=== PATIENT | female | born 1950 | race Caucasian/White ===

== ENCOUNTER → 2016-03-21 | Outpatient (CLI) | payer BC ==
[2016-03-22 12:51] LABS: Thyroid Stim Immun Quant 1.58 IU/L (<0.10)
== END | disposition home or self-care (01) ==
LOC: LABWHC1 16:55
PROVIDERS: ATTEND Ophthalmology Ophthalmic Plastic and Reconstructive Surgery
DX: E55.9 Vitamin D deficiency, unspecified (principal); E05.00 Thyrotoxicosis with diffuse goiter without thyrotoxic crisis or storm
CPT/HCPCS: 36415; 82306; 84255; 84439; 84443; 84445; 84481; 86376

== ENCOUNTER 2016-07-20 18:14 | Emergency (ER) | payer BC ==
[2016-07-20 18:30] VITALS: BP 165/71; PULSE 95; RESP 16; TEMP 99.1
--- NOTE | 2016-07-20 18:59 | ED ---
ENT HPI - General Chief complaint: ENT Stated complaint: eye pain Time Seen by Provider: 07/20/16 18:57 Source: patient, RN notes reviewed Mode of arrival: ambulatory Limitations: no limitations - History of Present Illness Initial comments: This is a 65-year-old female presents emergency department complaining of right thigh pain and mild blurry vision. She states symptoms started yesterday. She has a hard time describing the pain but then states it is a dull pressure type sensation. Patient denies any other symptoms. There is no runny nose. No sore throat. No earache. No fever. Patient describes no visual field loss. 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 Patient getting mild clear discharge - Related Data Home Medications Medication Instructions Recorded Confirmed metFORMIN HCL [Glucophage] 500 mg PO BID 03/08/14 11/28/15 FLUoxetine HCL 20 mg PO HS 06/01/15 11/28/15 Methimazole 5 mg PO DAILY 06/01/15 11/28/15 amLODIPine BESYLATE/BENAZEPRIL 1 tab PO QAM 06/01/15 11/28/15 [amLODIPine BESYLATE/BENAZEPRIL 10-20 mg] Previous Rx's Medication Instructions Recorded Sulfamethox-Tmp 800-160Mg [Bactrim 1 each PO Q12HR #20 tab 11/28/15 Ds] HYDROcodone/APAP 5-325MG [Nickerson 5] 1 each PO Q4HR PRN #20 tab 07/20/16 Allergies Allergy/AdvReac Type Severity Reaction Status Date / Time Penicillins Allergy Anaphylaxis Verified 11/28/15 17:34 Review of Systems ROS Statement: Those systems with pertinent positive or pertinent negative responses have been documented in the HPI. ROS Other: All systems not noted in ROS Statement are negative. Past Medical History Past Medical History: Diabetes Mellitus, Hypertension History of Any Multi-Drug Resistant Organisms: None Reported Past Surgical History: Section, Cholecystectomy Past Psychological History: Anxiety, Depression Smoking Status: Current every day smoker Past Alcohol Use History: Rare Past Drug Use History: Prescription Drug Abuse General Exam - General Exam Comments Initial Comments: Well-developed, well-nourished 65-year-old female in mild distress. Patient has mild photophobia Limitations: no limitations General appearance: alert, in no apparent distress Head exam: Present: atraumatic, normocephalic, normal inspection Eye exam: Present: PERRL, EOMI, conjunctival injection (Right), other (Patient has injection of the right sclera and conjunctiva. There is no evidence of purulent discharge or foreign body.). Absent: scleral icterus, nystagmus, periorbital swelling, periorbital tenderness Pupils: Present: normal accommodation, other (Visual acuity testing reveals 20/ 40 in the right eye and 20/30 in the left eye. 20/30 both eyes. Tonometry reveals a pressure of 10 mmHg in the right eye and 15 mmHg in the left eye. Slit-lamp examination reveals punctate uptake over the right cornea. There is no evidence of dendrites, no hypopyon, no hyphema, no evidence of corneal ulceration or foreign body. Lid was everted, no foreign body) ENT exam: Present: normal exam, mucous membranes moist Neck exam: Present: normal inspection, full ROM. Absent: tenderness, meningismus, lymphadenopathy Respiratory exam: Present: normal lung sounds bilaterally. Absent: respiratory distress, wheezes, rales, rhonchi, stridor Cardiovascular Exam: Present: regular rate, normal rhythm, normal heart sounds. Absent: systolic murmur, diastolic murmur, rubs, gallop, clicks GI/Abdominal exam: Present: soft. Absent: distended, tenderness Back exam: Present: normal inspection Neurological exam: Present: alert, oriented X3, CN II-XII intact. Absent: motor sensory deficit Psychiatric exam: Present: normal affect, normal mood Skin exam: Present: warm, dry, intact, normal color. Absent: rash Course Vital Signs 07/20/16 18:28 Temperature 99.1 F Pulse Rate 95 Respiratory 16 Rate Blood Pressure 165/71 O2 Sat by Pulse 97 Oximetry - Reevaluation(s) Reevaluation #1: no change 07/20/16 20:12 Medical Decision Making - Medical Decision Making case discussed with Dr. Tony Alvarez. Tx plan, f/u Saturday. likely exposure keratitis. Disposition Clinical Impression: Exposure keratitis, Acute right eye pain Disposition: HOME SELF-CARE Condition: Good Instructions: Keratitis (ED) Additional Instructions: Follow up with Dr. Alvarez on Saturday. Artificial tears every hour. E-mycin ointment-- 1 cm to affect eye every 8 hours. Return to ED at once if symptoms worsen. OTC Colace for contipation. Prescriptions: HYDROcodone/APAP 5-325MG [Nickerson 5] 1 each PO Q4HR PRN #20 tab PRN Reason: Pain Referrals: Tony Alvarez MD [STAFF PHYSICIAN] - 1-2 days Time of Disposition: 20:16
[2016-07-20] MEDS ORDERED: PROPARACAINE 0.5% OPHTH DROPS 15 ML BTL BOTH EYES STA (19:04)
[2016-07-20] MEDS ORDERED: ERYTHROMYCIN 5 MG/GM OPHTH OINT 3.5 GM TUBE RIGHT EYE ONE (20:11)
== END 2016-07-20 20:32 | disposition home or self-care (01) ==
LOC: EC 18:14
DX: H16.9 Unspecified keratitis (principal); E11.9 Type 2 diabetes mellitus without complications; I10 Essential (primary) hypertension; F17.200 Nicotine dependence, unspecified, uncomplicated; Z79.84 Long term (current) use of oral hypoglycemic drugs; Z79.899 Other long term (current) drug therapy; Z88.0 Allergy status to penicillin
CPT/HCPCS: 99283

== ENCOUNTER → 2016-08-09 | Outpatient (CLI) | payer BC ==
[2016-08-09 18:50] LABS: ALT 23 U/L (9-52); AST 18 U/L (14-36); Alkaline Phosphatase 105 U/L (38-126); Bilirubin, Delta 0.3 mg/dL (0.0-0.2); GGT 16 U/L (12-43); Total Bilirubin 0.3 mg/dL (0.2-1.3); Total Protein 6.7 g/dL (6.3-8.2)
[2016-08-09 19:20] LABS: Hepatitis B Surface Ag Index 0.05
[2016-08-09 19:27] LABS: Hepatitis B Core IgM Index 0.03
[2016-08-09 19:38] LABS: Hepatitis C Virus IgG Ab Negative (Negative); Hepatitis C Virus IgG Index 0.01
== END ==
LOC: MMGSC 16:36
PROVIDERS: ATTEND Family Medicine
DX: R79.89 Other specified abnormal findings of blood chemistry (principal)
CPT/HCPCS: 36415; 80074; 80076; 82390; 82977; 83516

== ENCOUNTER → 2016-08-10 | Outpatient (CLI) | payer BC ==
[2016-08-10 18:42] LABS: Hemoglobin A1C 7.2 % (4.2-6.1)
== END | disposition home or self-care (01) ==
LOC: MMGSC 10:49
PROVIDERS: ATTEND Family Medicine
DX: E11.9 Type 2 diabetes mellitus without complications (principal)
CPT/HCPCS: 83036

== ENCOUNTER → 2016-08-10 | Outpatient (CLI) | payer BC ==
[2016-08-10 16:55] LABS: Basophils # (A) 0.1 k/uL (0-0.2); Basophils % (A) 1 %; CH 30.1; CHCM 32.9; Eosinophils # (A) 0.3 k/uL (0-0.7); Eosinophils % (A) 4 %; HCT 42.4 % (34.0-46.0); HDW 2.32; HGB 13.8 gm/dL (11.4-16.0); Luc % (Auto) 3; Lymphocytes # (A) 2.5 k/uL (1.0-4.8); Lymphocytes % (A) 32 %; MCH 29.8 pg (25.0-35.0); MCHC 32.5 g/dL (31.0-37.0); MCV 91.9 fL (80.0-100.0); Mean Platelet Volume 9.7; Monocytes # (A) 0.5 k/uL (0-1.0); Monocytes % (A) 6 %; Neutrophils # (A) 4.2 k/uL (1.3-7.7); Neutrophils % (A) 54 %; RBC 4.62 m/uL (3.80-5.40); RDW 12.4 % (11.5-15.5); WBC 7.8 k/uL (3.8-10.6); WBC (Perox) 7.78
[2016-08-10 16:57] LABS: ALT 32 U/L (9-52); AST 20 U/L (14-36)
== END | disposition home or self-care (01) ==
LOC: MMGSC 10:54
PROVIDERS: ATTEND Internal Medicine Endocrinology, Diabetes & Metabolism
DX: E05.00 Thyrotoxicosis with diffuse goiter without thyrotoxic crisis or storm (principal)
CPT/HCPCS: 36415; 84439; 84443; 84450; 84460; 84481; 85025

== ENCOUNTER → 2016-08-10 | Outpatient (CLI) | payer BC | END | disposition home or self-care (01) | LOC: MMGSC 10:52 | PROVIDERS: ATTEND Ophthalmology Ophthalmic Plastic and Reconstructive Surgery | DX: E55.9 Vitamin D deficiency, unspecified (principal) | CPT/HCPCS: 82306 ==

== ENCOUNTER → 2016-10-11 | Outpatient (CLI) | payer BC | END | disposition home or self-care (01) | LOC: MMGSC 16:23 | PROVIDERS: ATTEND Family Medicine | DX: N76.0 Acute vaginitis (principal); N94.10 Unspecified dyspareunia; Z86.39 Personal history of other endocrine, nutritional and metabolic disease | CPT/HCPCS: 36415; 84439; 84443; 84480; 87070; 87205 ==

== ENCOUNTER 2016-12-22 17:38 | Observation (INO) | payer BC ==
[2016-12-22] MEDS ORDERED: ASPIRIN 81 MG PO STA (17:51)
[2016-12-22] MEDS ORDERED: NITROGLYCERIN SL TABS 0.4 MG TAB SUBLINGUAL STA ×3 (17:51)
[2016-12-22] MEDS ORDERED: NITROGLYCERIN OINT 1 INCH/GM PACKET TOPICAL STA (17:51)
--- NOTE | 2016-12-22 17:54 | ED ---
General Adult HPI - General Stated complaint: chest pain Time Seen by Provider: 12/22/16 17:40 Source: RN notes reviewed - History of Present Illness Initial comments: This is a 66 year old female with past medical history significant for smoking diabetes high blood pressure high cost felt. Patient also states she has a strong family history for heart disease. Patient states about an hour and a half prior to arrival she started having chest pain radiated to her back per patient states she was sweaty and short of breath per patient states the pain eventually subsided with any began just prior to coming to the hospital. Currently patient is having no pain. Patient denies any previous cardiac history. Patient denies any palpitations. Patient denies any recent fever chills or cough per patient denies abdominal pain patient denies any vomiting diarrhea per patient denies headache patient denies numbness weakness. Patient denies any lightheadedness dizziness or near syncopal episode. His any calf pain or leg swelling - Related Data Home Medications Medication Instructions Recorded Confirmed FLUoxetine HCL 20 mg PO HS 06/01/15 12/22/16 Methimazole 5 mg PO DAILY 06/01/15 12/22/16 amLODIPine BESYLATE/BENAZEPRIL 1 tab PO QAM 06/01/15 12/22/16 [amLODIPine BESYLATE/BENAZEPRIL 10-20 mg] glyBURIDE/METFORMIN HCL 1 tab PO BID 12/22/16 12/22/16 [glyBURIDE/METFORMIN HCL 5-500 mg] Allergies Allergy/AdvReac Type Severity Reaction Status Date / Time Penicillins Allergy Anaphylaxis Verified 12/22/16 18:18 Review of Systems ROS Statement: Those systems with pertinent positive or pertinent negative responses have been documented in the HPI. ROS Other: All systems not noted in ROS Statement are negative. Past Medical History Past Medical History: Diabetes Mellitus, Hypertension History of Any Multi-Drug Resistant Organisms: None Reported Past Surgical History: Section, Cholecystectomy Past Psychological History: Anxiety, Depression Smoking Status: Current every day smoker Past Alcohol Use History: Rare Past Drug Use History: Prescription Drug Abuse General Exam - General Exam Comments Initial Comments: GENERAL: Patient is well-developed and well-nourished. Patient is nontoxic and well- hydrated and is in mild distress. ENT: Neck is soft and supple. No significant lymphadenopathy is noted. Oropharynx is clear. Moist mucous membranes. Neck has full range of motion without eliciting any pain. EYES: The sclera were anicteric and conjunctiva were pink and moist. Extraocular movements were intact and pupils were equal round and reactive to light. Eyelids were unremarkable. PULMONARY: Unlabored respirations. Good breath sounds bilaterally. No audible rales rhonchi or wheezing was noted. CARDIOVASCULAR: There is a regular rate and rhythm without any murmurs gallops or rubs. ABDOMEN: Soft and nontender with normal bowel sounds. No palpable organomegaly was noted. There is no palpable pulsatile mass. SKIN: Skin is clear with no lesions or rashes and otherwise unremarkable. NEUROLOGIC: Patient is alert and oriented x3. Cranial nerves II through XII are grossly intact. Motor and sensory are also intact. Normal speech, volume and content. Symmetrical smile. MUSCULOSKELETAL: Normal extremities with adequate strength and full range of motion. No lower extremity swelling or edema. No calf tenderness. LYMPHATICS: No significant lymphadenopathy is noted PSYCHIATRIC: Normal psychiatric evaluation. Normal interpersonal interactions appears functionally intact in deals appropriately with others. No signs of depression. No signs of anxiety. Course Vital Signs 12/22/16 12/22/16 12/22/16 17:50 17:55 18:03 Temperature 97.5 F L Pulse Rate 83 91 90 Respiratory 16 16 16 Rate Blood Pressure 173/118 211/78 148/70 O2 Sat by Pulse 100 99 99 Oximetry 12/22/16 12/22/16 18:47 19:16 Temperature 97.8 F Pulse Rate 79 68 Respiratory 18 18 Rate Blood Pressure 146/81 146/81 O2 Sat by Pulse 99 98 Oximetry Medical Decision Making - Medical Decision Making Patient started having pain when EKG was being done EKG shows sinus rhythm with occasional PVC at 77 bpm OR interval is 152 QRS is 94 QT interval 394 QTC is 445. Patient's EKG shows no ST segment elevation or depression or T wave abnormalities are noted. Chest x-ray shows no acute normalities. Patient had chest pain while in the emergency department and it was relieved completely when she was given nitroglycerin. The patient's symptoms risk factors were significant and I started the patient heparin because of bleeding to be unstable angina. She agreed to be admitted I spoke with Dr. Hong he agreed to admit the patient I wrote admitting orders I consult cardiology and I continued heparin Nitropaste and aspirin on the floor - Lab Data Result diagrams: 12/22/16 17:52 12/22/16 17:52 Lab Results 12/22/16 12/22/16 12/22/16 Range/Units 17:52 17:52 17:52 WBC 9.2 (3.8-10.6) k/uL RBC 4.87 (3.80-5.40) m/uL Hgb 14.5 (11.4-16.0) gm/dL Hct 43.3 (34.0-46.0) % MCV 88.9 (80.0-100.0) fL MCH 29.9 (25.0-35.0) pg MCHC 33.6 (31.0-37.0) g/dL RDW 11.9 (11.5-15.5) % Plt Count 318 (150-450) k/uL Neutrophils % 48 % Lymphocytes % 38 % Monocytes % 7 % Eosinophils % 4 % Basophils % 1 % Neutrophils # 4.4 (1.3-7.7) k/uL Lymphocytes # 3.5 (1.0-4.8) k/uL Monocytes # 0.6 (0-1.0) k/uL Eosinophils # 0.4 (0-0.7) k/uL Basophils # 0.1 (0-0.2) k/uL PT (9.0-12.0) sec INR (<1.2) APTT (22.0-30.0) sec Sodium 139 (137-145) mmol/L Potassium 4.3 (3.5-5.1) mmol/L Chloride 106 (98-107) mmol/L Carbon Dioxide 24 (22-30) mmol/L Anion Gap 9 mmol/L BUN 14 (7-17) mg/dL Creatinine 0.74 (0.52-1.04) mg/dL Est GFR (MDRD) Af Amer >60 (>60 ml/min/1.73 sqM) Est GFR (MDRD) Non-Af >60 (>60 ml/min/1.73 sqM) Glucose 128 H (74-99) mg/dL Calcium 10.0 (8.4-10.2) mg/dL Magnesium 2.0 (1.6-2.3) mg/dL Total Bilirubin 0.2 (0.2-1.3) mg/dL AST 30 (14-36) U/L ALT 27 (9-52) U/L Alkaline Phosphatase 123 (38-126) U/L Total Creatine Kinase 54 (30-135) U/L CK-MB (CK-2) 0.5 (0.0-2.4) ng/mL CK-MB (CK-2) Rel Index 0.9 Troponin I <0.012 (0.000-0.034) ng/mL Total Protein 7.6 (6.3-8.2) g/dL Albumin 4.5 (3.5-5.0) g/dL 12/22/16 Range/Units 17:52 WBC (3.8-10.6) k/uL RBC (3.80-5.40) m/uL Hgb (11.4-16.0) gm/dL Hct (34.0-46.0) % MCV (80.0-100.0) fL MCH (25.0-35.0) pg MCHC (31.0-37.0) g/dL RDW (11.5-15.5) % Plt Count (150-450) k/uL Neutrophils % % Lymphocytes % % Monocytes % % Eosinophils % % Basophils % % Neutrophils # (1.3-7.7) k/uL Lymphocytes # (1.0-4.8) k/uL Monocytes # (0-1.0) k/uL Eosinophils # (0-0.7) k/uL Basophils # (0-0.2) k/uL PT 9.9 (9.0-12.0) sec INR 1.0 (<1.2) APTT 23.2 (22.0-30.0) sec Sodium (137-145) mmol/L Potassium (3.5-5.1) mmol/L Chloride (98-107) mmol/L Carbon Dioxide (22-30) mmol/L Anion Gap mmol/L BUN (7-17) mg/dL Creatinine (0.52-1.04) mg/dL Est GFR (MDRD) Af Amer (>60 ml/min/1.73 sqM) Est GFR (MDRD) Non-Af (>60 ml/min/1.73 sqM) Glucose (74-99) mg/dL Calcium (8.4-10.2) mg/dL Magnesium (1.6-2.3) mg/dL Total Bilirubin (0.2-1.3) mg/dL AST (14-36) U/L ALT (9-52) U/L Alkaline Phosphatase (38-126) U/L Total Creatine Kinase (30-135) U/L CK-MB (CK-2) (0.0-2.4) ng/mL CK-MB (CK-2) Rel Index Troponin I (0.000-0.034) ng/mL Total Protein (6.3-8.2) g/dL Albumin (3.5-5.0) g/dL Critical Care Time Critical Care Time: Yes Total Critical Care Time: 35 Disposition Clinical Impression: Unstable angina pectoris Disposition: ADMITTED IP TO THIS HOSP Referrals: Megan Chong MD [Primary Care Provider] - 1-2 days Time of Disposition: 19:18
[2016-12-22 18:12] LABS: Basophils # (A) 0.1 k/uL (0-0.2); Basophils % (A) 1 %; CH 30.3; CHCM 34.2; Eosinophils # (A) 0.4 k/uL (0-0.7); Eosinophils % (A) 4 %; HCT 43.3 % (34.0-46.0); HDW 2.49; HGB 14.5 gm/dL (11.4-16.0); Luc # (Auto) 0.22; Luc % (Auto) 2; Lymphocytes # (A) 3.5 k/uL (1.0-4.8); Lymphocytes % (A) 38 %; MCH 29.9 pg (25.0-35.0); MCHC 33.6 g/dL (31.0-37.0); MCV 88.9 fL (80.0-100.0); Monocytes # (A) 0.6 k/uL (0-1.0); Monocytes % (A) 7 %; Neutrophils # (A) 4.4 k/uL (1.3-7.7); Neutrophils % (A) 48 %; RBC 4.87 m/uL (3.80-5.40); RDW 11.9 % (11.5-15.5); WBC 9.2 k/uL (3.8-10.6); WBC (Perox) 8.48
--- NOTE | 2016-12-22 18:20 | XR ---
EXAMINATION TYPE: XR chest 2V DATE OF EXAM: 12/22/2016 COMPARISON: 03/08/2014 HISTORY: Chest pain TECHNIQUE: Frontal and lateral views of the chest are obtained. FINDINGS: There is coarsening of interstitial markings and a relative poor inspiration. There is no definite heart failure. Heart size is normal. There is no pleural effusion. Thoracic aorta is atherom atous. There are chest leads. IMPRESSION: Increased pulmonary interstitial density compared to last exam the could relate to pneum onia or fibrosis. Inspiration is decreased. No heart failure.
[2016-12-22 18:23] LABS: Partial Thromboplastin Time 23.2 sec (22.0-30.0); Prothrombin Time 9.9 sec (9.0-12.0)
[2016-12-22 18:28] LABS: Creatine Kinase 54 U/L (30-135)
[2016-12-22 18:30] LABS: ALT 27 U/L (9-52); AST 30 U/L (14-36); Alkaline Phosphatase 123 U/L (38-126); Anion Gap 9 mmol/L; Blood Urea Nitrogen 14 mg/dL (7-17); Carbon Dioxide 24 mmol/L (22-30); Chloride 106 mmol/L (98-107); Glucose 128 mg/dL (74-99); Non-African American GFR(MDRD) >60 (>60 ml/min/1.73 sqM); Potassium 4.3 mmol/L (3.5-5.1); Sodium 139 mmol/L (137-145); Total Bilirubin 0.2 mg/dL (0.2-1.3); Total Protein 7.6 g/dL (6.3-8.2)
[2016-12-22 18:40] LABS: Creatine Kinase MB 0.5 ng/mL (0.0-2.4); Troponin I <0.012 ng/mL (0.000-0.034)
[2016-12-22] MEDS ORDERED: HEPARIN SODIUM,PORCINE 5,000 UNIT/ML 1 ML VIAL IV ONE (19:09)
[2016-12-22] MEDS ORDERED: HEPARIN SODIUM,PORCINE/D5W PMX 25,000 UNIT in DEXTROSE/WATER 1 500ML.BAG IV SCH (19:15)
[2016-12-22] MEDS ORDERED: NITROGLYCERIN SL TABS 0.4 MG TAB SUBLINGUAL PRN (19:20)
[2016-12-22 20:38] VITALS: BMI 31.8
[2016-12-22] MEDS ORDERED: amLODIPine 10 MG TAB PO SCH (21:15)
[2016-12-22] MEDS ORDERED: LISINOPRIL 20 MG TAB PO SCH (21:15)
[2016-12-22] MEDS ORDERED: FLUoxetine HCL 20 MG CAP PO SCH (21:15)
[2016-12-22] MEDS ORDERED: METOPROLOL TARTRATE 12.5 MG TAB PO SCH (21:45)
--- NOTE | 2016-12-22 23:40 | P.HPIM ---
History of Present Illness H&P Date: 12/22/16 Chief Complaint: left sided chest pain 66 year old female with history of active smoking, HTN , DM and HLD. Patient presented with sudden onset left parasternal chest pain, that started while sitting down and relaxed, she felt stabbing in nature pain over the left parasternal area, radiating to her lower thoracic back, 10/10 in severity , associated with dizziness and SOB, otherwise no tachycardia, no changes in vision or hearing, no nausea or vomiting no sweating. pain resolved on its own after 10 min, she tried a zantac pill thinking it could be indigestion. Patient denies having any similar attacks in the past and denies history of CAD, however does report having a stress test in the past years ago which was normal at that time. Pain recurred minutes later, same symptoms, for which she decided to go to the hospital , pain again subsided minutes later while in the car, then recurred at the ED, for which she was given a SL nitro. CUrrently patient reports that she is pain free, had a big dinner, and reports feeling completely normal. Patient was admitted for observation and possible stress test in the morning if continues to be chest pain free and with normal vital signs. Await further cardiology input Review of Systems Constitutional: Patient denies fever, denies chills, denies night sweating, denies significant weight changes Eyes: Patient denies visual changes, denies eye pain ENT: Patient denies ear pain, denies rhinorrhea, denies sore throat Cardiovascular: Patient denies denies exertional dyspnea, denies peripheral leg edema, denies orthopnea, denies paroxysmal nocturnal dyspnea Respiratory:Patient denies cough, denies wheezing, denies shortness of breath Gastrointestinal: Patient denies diarrhea, denies constipation, denies nausea , denies vomiting, denies abdominal pain Genitourinary: Patient denies dysuria, denies hematuria, denies changes in urinary habits, denies genital lesions Musculoskeletal: Patient denies muscle pain, denies joint pain Psychiatric: Patient denies changes in mood or memory, denies suicidal ideation, reports anxiety Endocrine: Patient denies heat intolerance, denies cold intolerance, denies excessive thirst, denies polyuria Neurological: Patient denies focal neurologic deficits, denies weakness, denies numbness, denies tingling Hem/Lymphatic: Patient denies bleeding tendency, denies bruising, denies swollen lymph glands Allergic/Immun: Patient denies recent allergic reactions Skin: Patient denies rashes, denies pruritis, denies ulcers Past Medical History Past Medical History: Diabetes Mellitus, Hyperlipidemia, Hypertension, Thyroid Disorder History of Any Multi-Drug Resistant Organisms: None Reported Past Surgical History: Section, Cholecystectomy Additional Past Surgical History / Comment(s): eye surgery 12/04, cholecystectomy Past Anesthesia/Blood Transfusion Reactions: No Reported Reaction Past Psychological History: Anxiety, Depression Smoking Status: Current every day smoker Past Alcohol Use History: Rare Past Drug Use History: Prescription Drug Abuse - Past Family History Father Family Medical History: Coronary Artery Disease (CAD) Medications and Allergies Home Medications and Allergies Comment(s): does not take oral hypoglycemic agents Home Medications Medication Instructions Recorded Confirmed Type FLUoxetine HCL 20 mg PO HS 06/01/15 12/22/16 History Methimazole 5 mg PO DAILY 06/01/15 12/22/16 History amLODIPine BESYLATE/BENAZEPRIL 1 tab PO QAM 06/01/15 12/22/16 History [amLODIPine BESYLATE/BENAZEPRIL 10-20 mg] glyBURIDE/METFORMIN HCL 1 tab PO BID 12/22/16 12/22/16 History [glyBURIDE/METFORMIN HCL 5-500 mg] Allergies Allergy/AdvReac Type Severity Reaction Status Date / Time Penicillins Allergy Anaphylaxis Verified 12/22/16 18:18 Physical Exam Vitals: Vital Signs Temp Pulse Pulse Resp BP BP Pulse Ox 12/22/16 19:33 97.4 F L 75 16 157/84 97 12/22/16 19:16 97.8 F 68 18 140/65 98 12/22/16 18:47 79 18 146/81 99 12/22/16 18:03 90 16 148/70 99 12/22/16 17:55 91 16 211/78 99 12/22/16 17:50 97.5 F L 83 16 173/118 100 Intake and Output 12/22/16 12/22/16 12/23/16 14:59 22:59 05:59 Other: Voiding Method Toilet Weight 81.647 kg Patient Weight 12/23/16 05:59 Weight 81.647 kg Constitutional: No acute distress, conversant, pleasant Eyes: Anicteric sclerae, moist conjunctiva, no lid-lag Pupils equal round reactive to light proptosis of right eye ENMT: NC/AT Oropharynx clear, no erythema, exudates Neck: Supple, FROM, no masses, or JVD No carotid bruits No thyromegaly Lungs: Clear to auscultation Clear to percussion Normal respiratory effort, no accessory muscle use Cardiovascular: Heart regular in rate and rhythm, No murmurs, gallops, or rubs No peripheral edema Abdominal: Soft Nontender, no guarding, rebound or rigidity Abdomen moving with respiration Normoactive bowel sounds No hepatomegaly, No splenomegaly No palpable mass No abdominal wall hernia noted Skin: Normal temperature, tone, texture, turgor No induration No subcutaneous nodules No rash, lesions No ulcers Extremities: No digital cyanosis No clubbing Pedal pulses intact and symmetrical Radial pulses intact and symmetrical No calf tenderness Psychiatric: Alert and oriented to person, place and time Appropriate affect fair judgment Neuro Muscles Strength 5/5 in all 4 extremities Sensation to light touch grossly present throughout Cranial nerves II-XII grossly intact No focal sensory deficits Lymphatics: no palpable cervical or supraclavicular , or inguinal lymph nodes Results CBC & Chem 7: 12/22/16 17:52 12/22/16 17:52 Labs: Abnormal Lab Results - Last 24 Hours (Table) 12/22/16 Range/Units 17:52 Glucose 128 H (74-99) mg/dL Thrombosis Risk Factor Assmnt - Choose All That Apply Each Risk Factor Represents 2 Points: Age 61-74 years Thrombosis Risk Factor Assessment Total Risk Factor Score: 2 Thrombosis Risk Factor Assessment Level: Low Risk Assessment and Plan Assessment: 66 year old female presented with chest pain with atypical features, however due to multiple risk factors and recurrent chest pain, patient admitted under observation for cardiac workup. (1) Chest pain Narrative/Plan: with atypical features, however patient with multiple risk factors cardiology consult for further recs, possible stress test if chest pain free and stable in the morning ASA heparin low dose metoprolol PRN SL nitro prn morphine oxygen as needed monitor vital signs check lipid profile Current Visit: Yes Status: Acute Code(s): R07.9 - CHEST PAIN, UNSPECIFIED SNOMED Code(s): 60349045 (2) Hypertension Narrative/Plan: controlled continue with home meds Amlodipine/ ACEi Current Visit: Yes Status: Chronic Code(s): I10 - ESSENTIAL (PRIMARY) HYPERTENSION SNOMED Code(s): 41312260 (3) Hyperlipidemia Narrative/Plan: not treated at home check lipid profile Current Visit: Yes Status: Chronic Code(s): E78.5 - HYPERLIPIDEMIA, UNSPECIFIED SNOMED Code(s): 24138305 (4) Diabetes mellitus Narrative/Plan: not on medication at home diet controlled and weight loss Insulin sliding scale check A1C% Current Visit: Yes Status: Chronic Code(s): E11.9 - TYPE 2 DIABETES MELLITUS WITHOUT COMPLICATIONS SNOMED Code(s): 43048994 (5) DVT prophylaxis Narrative/Plan: on heparin drip for possible ACS Current Visit: Yes Status: Acute Code(s): QZN5368 - SNOMED Code(s): 742663931 (6) Smoking Narrative/Plan: counseled to quit smoking (1.5 PPD) avoid nicotin patch at this time (due to possible underlying ACS) Current Visit: Yes Status: Chronic Code(s): F17.200 - NICOTINE DEPENDENCE, UNSPECIFIED, UNCOMPLICATED SNOMED Code(s): 28492423 (7) Graves disease Narrative/Plan: continue home dose of methimazole OP follow up Current Visit: No Status: Chronic Code(s): 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
[2016-12-23] MEDS: NITROGLYCERIN OINT 1 INCH/GM PACKET TOPICAL SCH ×2 (00:47→06:53)
[2016-12-23 01:32] LABS: Creatine Kinase 39 U/L (30-135)
[2016-12-23] MEDS ORDERED: HEPARIN SODIUM,PORCINE 5,000 UNIT/ML 1 ML VIAL IV PRN (01:41)
[2016-12-23 01:46] LABS: Creatine Kinase MB 0.4 ng/mL (0.0-2.4); Troponin I <0.012 ng/mL (0.000-0.034)
[2016-12-23 06:08] LABS: Glucose,Whole Blood 196 mg/dL (75-99)
--- NOTE | 2016-12-23 07:17 | P.CRDCN ---
History of Present Illness Consult date: 12/23/16 Chief complaint: Chest pain History of present illness: This is a pleasant 66-year-old female patient with a past medical history significant for diabetes, hypertension, and dyslipidemia with no history of coronary artery disease who presented to the hospital complaining of chest discomfort. She was at her daughter's house yesterday when she started experiencing chest discomfort, in the mid of the chest, as a sharp kind of discomfort with some radiation to the back with associated shortness of breath and without any nausea or vomiting or sweating. The pain lasted about 10 minutes then it was resolved completely. She had another episode of chest discomfort subsequently and at that time she decided to come to the emergency room. When she arrived the emergency room she was in pain and she was given nitroglycerin with improvement in her symptoms. The EKG and subsequent EKG showed normal sinus mechanism without any significant or ischemic changes. The cardiac enzymes were checked and came in to be unremarkable. The chest x-ray did not show any acute abnormalities. The patient does not has any history of coronary artery disease but she had multiple risk factors including diabetes, hypertension, and dyslipidemia. Past Medical History Past Medical History: Diabetes Mellitus, Hyperlipidemia, Hypertension, Thyroid Disorder History of Any Multi-Drug Resistant Organisms: None Reported Past Surgical History: Section, Cholecystectomy Additional Past Surgical History / Comment(s): eye surgery 12/04, cholecystectomy Past Anesthesia/Blood Transfusion Reactions: No Reported Reaction Past Psychological History: Anxiety, Depression Smoking Status: Current every day smoker Past Alcohol Use History: Rare Past Drug Use History: Prescription Drug Abuse - Past Family History Father Family Medical History: Coronary Artery Disease (CAD) Medications and Allergies Home Medications Medication Instructions Recorded Confirmed Type FLUoxetine HCL 20 mg PO HS 06/01/15 12/22/16 History Methimazole 5 mg PO DAILY 06/01/15 12/22/16 History amLODIPine BESYLATE/BENAZEPRIL 1 tab PO QAM 06/01/15 12/22/16 History [amLODIPine BESYLATE/BENAZEPRIL 10-20 mg] glyBURIDE/METFORMIN HCL 1 tab PO BID 12/22/16 12/22/16 History [glyBURIDE/METFORMIN HCL 5-500 mg] Allergies Allergy/AdvReac Type Severity Reaction Status Date / Time Penicillins Allergy Anaphylaxis Verified 12/22/16 18:18 Physical Exam Vitals: Vital Signs Temp Pulse Pulse Resp BP BP Pulse Ox 11/05/17 04:00 97.0 F L 65 16 124/70 97 12/23/16 00:00 97.2 F L 81 16 121/67 97 12/22/16 19:33 97.4 F L 75 16 157/84 97 12/22/16 19:16 97.8 F 68 18 140/65 98 12/22/16 18:47 79 18 146/81 99 12/22/16 18:03 90 16 148/70 99 12/22/16 17:55 91 16 211/78 99 12/22/16 17:50 97.5 F L 83 16 173/118 100 Intake and Output 12/22/16 12/23/16 12/23/16 23:59 06:59 14:59 Intake Total Balance Intake: Intake, IV Titration Amount Heparin Sodium,Porcine/ D5w Pmx 25,000 unit In Dextrose/Water 1 500ml. bag @ 12 UNITS/KG/HR 19. 59 mls/hr IV .Q24H [facility] Rx #:[id number] Other: Voiding Method # Voids Weight - Constitutional General appearance: no acute distress - Respiratory Respiratory: bilateral: CTA - Cardiovascular Rhythm: regular Heart sounds: normal: S1, S2 Results 12/22/16 17:52 12/22/16 17:52 Cardiac Enzymes 12/22/16 12/22/16 12/23/16 Range/Units 17:52 17:52 00:50 AST 30 (14-36) U/L CK-MB (CK-2) 0.5 0.4 (0.0-2.4) ng/mL Troponin I <0.012 <0.012 (0.000-0.034) ng/mL Coagulation 12/22/16 12/23/16 Range/Units 17:52 00:50 PT 9.9 (9.0-12.0) sec APTT 23.2 37.8 H (22.0-30.0) sec CBC 12/22/16 Range/Units 17:52 WBC 9.2 (3.8-10.6) k/uL RBC 4.87 (3.80-5.40) m/uL Hgb 14.5 (11.4-16.0) gm/dL Hct 43.3 (34.0-46.0) % Plt Count 318 (150-450) k/uL Comprehensive Metabolic Panel 12/22/16 Range/Units 17:52 Sodium 139 (137-145) mmol/L Potassium 4.3 (3.5-5.1) mmol/L Chloride 106 (98-107) mmol/L Carbon Dioxide 24 (22-30) mmol/L BUN 14 (7-17) mg/dL Creatinine 0.74 (0.52-1.04) mg/dL Glucose 128 H (74-99) mg/dL Calcium 10.0 (8.4-10.2) mg/dL AST 30 (14-36) U/L ALT 27 (9-52) U/L Alkaline Phosphatase 123 (38-126) U/L Total Protein 7.6 (6.3-8.2) g/dL Albumin 4.5 (3.5-5.0) g/dL Current Medications Generic Name Dose Route Start Last Admin Trade Name Freq PRN Reason Stop Dose Admin Amlodipine Besylate 10 mg 12/22/16 21:15 12/22/16 22:11 Norvasc PO 10 mg QAM [facility] Administration Aspirin 325 mg 12/23/16 09:00 Aspirin PO DAILY [facility] Atorvastatin Calcium 10 mg 12/23/16 21:00 Lipitor PO HS [facility] Fluoxetine HCl 20 mg 12/22/16 21:15 12/22/16 22:11 Prozac PO 20 mg HS [facility] Administration Heparin Sodium (Porcine) 0 unit 12/23/16 01:41 EST 12/23/16 01:00 EST Heparin IV 4,080 unit PER PROTOCOL PRN Administration Low PTT Protocol Heparin Sodium/Dextrose 25,000 500 mls @ 19.59 mls/hr 12/22/16 19:15 19:38 unit/ IV Solution IV 12 units/kg/hr .Q24H [facility] 19.59 mls/hr Protocol Administration 12 UNITS/KG/HR Insulin Human Lispro 0 unit 12/23/16 07:30 12/23/16 06:46 Humalog SQ Not Given ACHS [facility] Protocol Lisinopril 20 mg 12/22/16 21:15 12/22/16 22:11 Zestril PO 20 mg QAM [facility] Administration Methimazole 5 mg 12/23/16 09:00 Tapazole PO DAILY [facility] Metoprolol Tartrate 12.5 mg 12/22/16 21:45 12/22/16 22:11 Lopressor PO 12.5 mg BID [facility] Administration Nitroglycerin 1 inch 12/23/16 00:00 12/23/16 06:53 Nitro-Bid Oint TOPICAL 1 inch Q6HR [facility] Administration Nitroglycerin 0.4 mg 12/22/16 19:20 Nitrostat SUBLINGUAL Q5M PRN Chest Pain Intake and Output 12/22/16 12/23/16 12/23/16 23:59 06:59 14:59 Intake Total Balance Intake: Intake, IV Titration Amount Heparin Sodium,Porcine/ D5w Pmx 25,000 unit In Dextrose/Water 1 500ml. bag @ 12 UNITS/KG/HR 19. 59 mls/hr IV .Q24H [facility] Rx #:[id number] Other: Voiding Method # Voids Weight 12/22/16 17:52 12/22/16 17:52 Assessment and Plan Assessment: This is a 66-year-old female patient with multiple risk factors for CAD including diabetes, hypertension, dyslipidemia and significant history of smoking presented to the emergency room complaining of chest discomfort which seems to be atypical. The patient was ruled out for acute coronary events by normal EKG and normal serial cardiac enzymes. I recommended proceeding with a stress test as an outpatient and the patient expressed that she wanted go home and have it done as an outpatient. If she agreed to stay I will proceed with a stress test tomorrow morning. If she wants to go home and I will make sure she is physically active walking up and around and pain-free before she goes home. I want to thank you for allowing us participate in her care
[2016-12-23] MEDS ORDERED: INSULIN LISPRO (humaLOG) 300 UNIT/3 ML VIAL SQ SCH (07:30)
[2016-12-23 07:58] LABS: CH 29.4; CHCM 32.9; HCT 38.9 % (34.0-46.0); HDW 2.28; HGB 12.7 gm/dL (11.4-16.0); MCH 29.3 pg (25.0-35.0); MCHC 32.7 g/dL (31.0-37.0); MCV 89.8 fL (80.0-100.0); Mean Platelet Volume 8.4; RBC 4.33 m/uL (3.80-5.40)
[2016-12-23 08:15] LABS: Creatine Kinase 34 U/L (30-135)
[2016-12-23 08:20] LABS: Anion Gap 8 mmol/L; Blood Urea Nitrogen 22 mg/dL (7-17); Calcium 9.1 mg/dL (8.4-10.2); Carbon Dioxide 26 mmol/L (22-30); Chloride 109 mmol/L (98-107); Cholesterol 220 mg/dL (<200); Glucose 166 mg/dL (74-99); HDL Cholesterol 61 mg/dL (40-60); Non-African American GFR(MDRD) >60 (>60 ml/min/1.73 sqM); Potassium 4.7 mmol/L (3.5-5.1); Sodium 143 mmol/L (137-145)
[2016-12-23 08:29] LABS: Creatine Kinase MB 0.4 ng/mL (0.0-2.4); Troponin I <0.012 ng/mL (0.000-0.034)
[2016-12-23] MEDS ORDERED: METHIMAZOLE 5 MG TAB PO SCH (09:00)
[2016-12-23] MEDS ORDERED: ASPIRIN 325 MG TAB PO SCH (09:00)
[2016-12-23 10:04] VITALS: TEMP 97.2
--- NOTE | 2016-12-23 11:25 | P.DS ---
Providers Date of admission: 12/22/16 19:20 Attending physician: Roxanne Hong MD Consults: 12/22/16 19:20 Consult Physician Urgent Consulting Provider: [facility] Consult Reason/Comments: Unstable angina Do you want consulting provider notified?: Yes Primary care physician: Megan [facility] Course: 66 year old female with history of active smoking, HTN , DM and HLD presented with sudden onset left parasternal chest pain, that started while sitting down and relaxed, the pain felt like stabbing in nature pain over the left parasternal area, radiating to her lower thoracic back, 10/10 in severity, associated with dizziness and SOB, otherwise no tachycardia, no changes in vision or hearing, no nausea or vomiting, no sweating. The pain resolved on its own after 10 min. She tried a zantac pill thinking it could be indigestion. Patient denies having any similar attacks in the past and denies history of CAD , however does report having a stress test in the past which was normal. Pain recurred minutes later, same symptoms, subsequently she decided to go to the hospital , pain again subsided minutes later while in the car, then recurred at the ED, for which she was given a SL nitro. When she came up to the medical floor she was pain free. Physical exam including vital signs are all within normal limits. Laboratory findings were all normal as well including the troponin. Patient was started on heparin drip for presumed unstable angina. She was treated with metoprolol, aspirin and was started on statin as well. Lipid panel came back positive for hypercholesterolemia, her LDL was 145 and a total cholesterol was 220. Since she came up to the floor she has been chest pain-free. She was evaluated by cardiology who gave her the option of staying in the hospital until tomorrow to get the stress test done or going home to have it done as an outpatient. Patient elected doing it as an outpatient because she has to go to work tomorrow. She was ambulated down the bernstein and did not have any symptoms of chest pain or shortness of breath. Because of the hypercholesterolemia she was started on statin. She was also started on aspirin and metoprolol. She will be discharged home in stable condition Patient Condition at Discharge: Good Plan - Discharge Summary Discharge Rx Participant: No New Discharge Prescriptions: New Aspirin 325 mg PO DAILY tab Atorvastatin [Lipitor] 10 mg PO HS tab Metoprolol Tartrate [Lopressor] 12.5 mg PO BID tab Nitroglycerin Sl Tabs [Nitrostat] 0.4 mg SUBLINGUAL Q5M PRN tab PRN Reason: Chest Pain Continue Methimazole 5 mg PO DAILY FLUoxetine HCL 20 mg PO HS amLODIPine BESYLATE/BENAZEPRIL [amLODIPine BESYLATE/BENAZEPRIL 10-20 mg] 1 tab PO QAM glyBURIDE/METFORMIN HCL [glyBURIDE/METFORMIN HCL 5-500 mg] 1 tab PO BID Discharge Medication List FLUoxetine HCL 20 mg PO HS 06/01/15 [History] Methimazole 5 mg PO DAILY 06/01/15 [History] amLODIPine BESYLATE/BENAZEPRIL [amLODIPine BESYLATE/BENAZEPRIL 10-20 mg] 1 tab PO QAM 06/01/15 [History] glyBURIDE/METFORMIN HCL [glyBURIDE/METFORMIN HCL 5-500 mg] 1 tab PO BID [History] Aspirin 325 mg PO DAILY tab 12/23/16 [Rx] Atorvastatin [Lipitor] 10 mg PO HS tab 12/23/16 [Rx] Metoprolol Tartrate [Lopressor] 12.5 mg PO BID tab 12/23/16 [Rx] Nitroglycerin Sl Tabs [Nitrostat] 0.4 mg SUBLINGUAL Q5M PRN tab 12/23/16 [Rx] Follow up Appointment(s)/Referral(s): Placido Miller MD [STAFF PHYSICIAN] - 1 Week Megan Chong MD [Primary Care Provider] - 1-2 days Activity/Diet/Wound Care/Special Instructions: Resume normal activity Care Plan Goals (MU): Need follow up cardiac stress testing Pending Studies Pending Results: Outpatient stress test
[2016-12-23 11:48] LABS: Glucose,Whole Blood 192 mg/dL (75-99)
[2016-12-23 12:37] VITALS: BP 132/70; PULSE 70; RESP 17
[2016-12-23] MEDS ORDERED: ATORVASTATIN 10 MG TAB PO SCH (21:00)
== END 2016-12-23 12:47 | disposition home or self-care (01) ==
LOC: EC 17:38 → 6SEL 19:20
PROVIDERS: ADMIT Internal Medicine; ATTEND Internal Medicine
DX: R07.89 Other chest pain (principal); R61 Generalized hyperhidrosis; R06.02 Shortness of breath; R42 Dizziness and giddiness; E11.9 Type 2 diabetes mellitus without complications; F41.9 Anxiety disorder, unspecified; F32.9 Major depressive disorder, single episode, unspecified; I10 Essential (primary) hypertension; E78.00 Pure hypercholesterolemia, unspecified; E05.00 Thyrotoxicosis with diffuse goiter without thyrotoxic crisis or storm; F17.200 Nicotine dependence, unspecified, uncomplicated; Z82.49 Family history of ischemic heart disease and other diseases of the circulatory system; Z79.899 Other long term (current) drug therapy; Z79.84 Long term (current) use of oral hypoglycemic drugs; Z88.0 Allergy status to penicillin
CPT/HCPCS: 99291; 96374; 96376; 36415; 93005; 80061; 80053; 80048; 82550 ×2; 82553 ×2; 83735; 84484 ×2; 85025; 85027; 85610; 85730 ×2; 83036; 71020; G0378 ×2; J1644 ×3

== ENCOUNTER → 2016-12-31 | Outpatient (CLI) | payer BC ==
--- NOTE | 2016-12-31 11:58 | EST ---
EXERCISE STRESS DATE OF SERVICE: 12/31/2016 AGE: 66 SEX: Female HT: 62 WT: 175 PROTOCOL: Shaheen STAGE: I DURATION OF EXERCISE: 5 minutes HEART RATE REST: 89 BLOOD PRESSURE REST: 126/66 MAXIMUM HEART RATE ACHIEVED: 146 MAXIMUM BLOOD PRESSURE: 199/66 85% MPHR: 133 100% MPHR: 152 METS: 6.6 INDICATIONS: Chest pain. CLINICAL INFORMATION: Patient was exercised for a total period of 5 minutes. Peak heart rate of 146 was achieved, maximum blood pressure of 199/66 mmHg was noted. The resting EKG shows normal sinus rhythm with normal MN interval and QRS duration and normal ST-T waves. No ST-segment depression suggestive of ischemia was noted. The patient did not complain of any chest pain during the test. FINAL IMPRESSION: This stress test is not suggestive of ischemia. Patient's exercise tolerance is normal. No dysrhythmias are noted. MMODL / IJN: [id number] /
== END | disposition home or self-care (01) ==
LOC: RADNMMAIN 10:12
PROVIDERS: ATTEND Family Medicine
DX: R07.9 Chest pain, unspecified (principal)
CPT/HCPCS: 93017

== ENCOUNTER → 2017-03-13 | Outpatient (CLI) | payer BC ==
[2017-03-13 16:41] LABS: Basophils # (A) 0.1 k/uL (0-0.2); Basophils % (A) 1 %; Eosinophils # (A) 0.5 k/uL (0-0.7); Eosinophils % (A) 5 %; HCT 38.2 % (34.0-46.0); HGB 12.5 gm/dL (11.4-16.0); Lymphocytes % (A) 36 %; MCH 29.7 pg (25.0-35.0); MCHC 32.7 g/dL (31.0-37.0); MCV 90.8 fL (80.0-100.0); Mean Platelet Volume 8.7; Monocytes # (A) 0.6 k/uL (0-1.0); Monocytes % (A) 7 %; Neutrophils # (A) 4.1 k/uL (1.3-7.7); Neutrophils % (A) 49 %; Platelet Count 251 k/uL (150-450); RBC 4.21 m/uL (3.80-5.40); RDW 13.7 % (11.5-15.5); WBC 8.4 k/uL (3.8-10.6)
[2017-03-13 17:07] LABS: T4, Free (Free Thyroxine) 0.92 ng/dL (0.78-2.19)
== END | disposition home or self-care (01) ==
LOC: LABWHC1 16:08
PROVIDERS: ATTEND Internal Medicine Endocrinology, Diabetes & Metabolism
DX: E05.00 Thyrotoxicosis with diffuse goiter without thyrotoxic crisis or storm (principal)
CPT/HCPCS: 36415; 84439; 84443; 84445; 84450; 84460; 84481; 85025

== ENCOUNTER → 2017-03-21 | Outpatient (CLI) | payer BC ==
--- NOTE | 2017-03-21 18:06 | US ---
EXAMINATION TYPE: US transvaginal DATE OF EXAM: 03/21/2017 COMPARISON: NONE CLINICAL HISTORY: Vaginal bleeding N93.9. Heavy bleeding x 4 days, 5, para 4, miscarriage 1, patient states she had a partial hysterectomy, she is unsure if she still has ovaries, history of 4 c -sections TECHNIQUE: Transvaginal (TV) Date of LMP: 30 years ago EXAM MEASUREMENTS: Uterus: surgically absent Endometrial Stripe: surgically absent Right Ovary: 0.9 x 0.7 x 1.3cm cm Left Ovary: not seen 1. Uterus: surgically absent 2. Endometrium: surgically absent 3. Right Ovary: wnl 4. Left Ovary: not seen due to overlying bowel gas 5. Bilateral Adnexa: wnl 6. Posterior cul-de-sac: wnl IMPRESSION: Uterus is not seen. No solid or cystic pelvic mass identified. Left ovary is not seen and the right ovary is not enlarged. No free fluid.
== END | disposition home or self-care (01) ==
LOC: RADUSWWP 16:45
PROVIDERS: ATTEND Family Medicine
DX: N93.9 Abnormal uterine and vaginal bleeding, unspecified (principal)
CPT/HCPCS: 76830

== ENCOUNTER → 2017-04-02 | Outpatient (CLI) | payer BC ==
[2017-04-02 23:52] LABS: Basophils # (A) 0.1 k/uL (0-0.2); Basophils % (A) 1 %; Eosinophils # (A) 0.5 k/uL (0-0.7); Eosinophils % (A) 6 %; HCT 35.8 % (34.0-46.0); HGB 11.2 gm/dL (11.4-16.0); Hypochromasia Slight; Lymphocytes # (A) 2.8 k/uL (1.0-4.8); Lymphocytes % (A) 34 %; MCH 29.5 pg (25.0-35.0); MCHC 31.4 g/dL (31.0-37.0); Mean Platelet Volume 9.6; Monocytes # (A) 0.6 k/uL (0-1.0); Monocytes % (A) 7 %; Neutrophils # (A) 4.1 k/uL (1.3-7.7); Neutrophils % (A) 50 %; Platelet Count 365 k/uL (150-450); RBC 3.81 m/uL (3.80-5.40); RDW 13.4 % (11.5-15.5); WBC 8.2 k/uL (3.8-10.6)
[2017-04-03 11:22] LABS: Iron Saturation 8.47 (12.00-45.00)
== END | disposition home or self-care (01) ==
LOC: MMGSC 17:08
PROVIDERS: ATTEND Family Medicine
DX: N93.9 Abnormal uterine and vaginal bleeding, unspecified (principal); R58 Hemorrhage, not elsewhere classified
CPT/HCPCS: 36415; 82728; 83540; 83550; 85025

== ENCOUNTER → 2017-06-10 | Outpatient (CLI) | payer BC ==
--- NOTE | 2017-06-10 08:17 | XR ---
EXAMINATION TYPE: XR chest 2V DATE OF EXAM: 06/10/2017 COMPARISON: 12/22/2016 HISTORY: Presurgical evaluation TECHNIQUE: Frontal and lateral views of the chest are obtained. FINDINGS: There is no focal air space opacity, pleural effusion, or pneumothorax seen. The cardiac silhouette size is within normal limits. The osseous structures are intact. Cholecystectomy clips a re noted within the right upper quadrant. Mild multilevel degenerative changes of the thoracic spine and acromioclavicular arthropathy are noted. IMPRESSION: No acute cardiopulmonary process.
[2017-06-10 09:24] LABS: Basophils # (A) 0.1 k/uL (0-0.2); Basophils % (A) 1 %; Eosinophils # (A) 0.4 k/uL (0-0.7); Eosinophils % (A) 5 %; HCT 39.6 % (34.0-46.0); HGB 13.1 gm/dL (11.4-16.0); Lymphocytes # (A) 2.4 k/uL (1.0-4.8); Lymphocytes % (A) 31 %; MCH 28.9 pg (25.0-35.0); MCHC 33.2 g/dL (31.0-37.0); Mean Platelet Volume 9.4; Monocytes # (A) 0.6 k/uL (0-1.0); Monocytes % (A) 8 %; Neutrophils # (A) 4.3 k/uL (1.3-7.7); Neutrophils % (A) 54 %; Platelet Count 281 k/uL (150-450); RBC 4.55 m/uL (3.80-5.40); RDW 12.6 % (11.5-15.5); WBC 7.9 k/uL (3.8-10.6)
[2017-06-10 09:37] LABS: Potassium 4.1 mmol/L (3.5-5.1)
[2017-06-10 09:38] LABS: Prothrombin Time 9.7 sec (9.0-12.0)
== END | disposition home or self-care (01) ==
LOC: LABPAT 06:42
PROVIDERS: ATTEND Orthopaedic Surgery
DX: Z01.818 Encounter for other preprocedural examination (principal)
CPT/HCPCS: 36415; 71046; 80051; 85025; 85610; 87070

== ENCOUNTER 2017-06-25 08:40 | Inpatient (IN) | payer BC ==
[2017-06-20 15:52] VITALS: BMI 34.9
--- NOTE | 2017-06-24 09:02 | HP ---
HISTORY AND PHYSICAL CHIEF COMPLAINT: Right shoulder pain. HISTORY OF PRESENT ILLNESS: The patient is a 66-year-old right-hand dominant female who presents with progressive right shoulder pain for the past year or so. She is having a difficult time raising her arm over her head. She has significant night symptoms. She has tried previous injections along with medications with only partial temporary relief. PAST MEDICAL HISTORY: Significant for hypertension, hypothyroidism, noninsulin dependent diabetes, and arthritis. PAST SURGICAL HISTORY: Significant for cholecystectomy and section. CURRENT MEDICATIONS: 1. Amlodipine. 2. Fluoxetine. 3. Motrin. 4. Methimazole. ALLERGIES: She has allergies to PENICILLIN. FAMILY HISTORY: Significant for stroke, renal disease, cancer and heart disease. SOCIAL HISTORY: Significant for 1 pack per day tobacco use. REVIEW OF SYSTEMS: Sixteen-point review of systems otherwise reviewed and is noncontributory. PHYSICAL EXAMINATION: On examination, the patient is approximately 5 feet 2 inches, 191 pounds of endomorphic habitus. HEENT exam is nonfocal. Neck is supple. She is tender about the anterior right glenohumeral joint. She has moderate subacromial crepitus. Active range of motion forward elevation 135 degrees, external rotation with the arm at side 35 degrees, internal rotation to L1. Motor strength is 4 minus over 5 for external rotation with arm at side, 4 minus over 5 for abduction. Impingement, Neer and Speed tests are positive. Her distal neurovascular exam otherwise appears intact in the right upper extremity. MRI report for the right shoulder from 05/28/2017 shows a large retracted tear of the rotator cuff involving the supraspinatus and infraspinatus tendons with significant muscular atrophy and biceps attenuation. IMPRESSION: 1. Chronic symptomatic right rotator cuff tear. 2. Koo-isrpiom-zonwottiy diabetes. 3. Increased body mass index. RECOMMENDATIONS: I talked to the patient at length regarding her condition and treatment options. At this point, she is quite symptomatic and opts to proceed with surgery. We will plan to proceed with reverse right total shoulder arthroplasty. We will likely institute DVT prophylaxis postoperatively. MMODL / IJN: [id number] /
[~2017-06-25 08:40] MED LIST: ACETAMINOPHEN TAB 500 MG TAB PO ONE; CLINDAMYCIN 900 MG in DEXTROSE 5% IN WATER 50 ML IVPB ONE; DEXAMETHASONE SOD PHOSPHATE 10 MG/ML 1 ML VIAL IV ONE; MELOXICAM 7.5 MG TAB PO ONE; MIDAZOLAM 2 MG/2 ML VIAL IV PRN; ONDANSETRON ODT 4 MG TAB PO ONE; SCOPOLAMINE 1.5MG/72HR PATCH TRANSDERM ONE; TRANEXAMIC ACID 1,000 MG in SODIUM CHLORIDE 0.9% 50 ML IVPB ONE; fentaNYL (PF) 50 MCG/ML 2 ML AMP IV PRN
[2017-06-25] MEDS: LACTATED RINGERS 1,000 ML IV SCH (09:26)
[2017-06-25] MEDS ORDERED: LIDOCAINE 1% 20 ML VIAL (10MG/ML) FOR IV START INTRADERMA ONE (09:39)
[2017-06-25 09:45] LABS: Glucose,Whole Blood 176 mg/dL (75-99)
[2017-06-25] MEDS ORDERED: MIDAZOLAM 2 MG/2 ML VIAL ONE (10:57)
[2017-06-25] MEDS ORDERED: PROPOFOL 10 MG/ML 20 ML VIAL IV ONE (10:57)
[2017-06-25] MEDS ORDERED: ePHEDrine SULFATE/0.9% NACL/PF 50 MG/5 ML SYRINGE IV ONE (10:57)
[2017-06-25] MEDS ORDERED: SODIUM CHLORIDE 0.9% 100 ML BAG ONE (10:57)
[2017-06-25] MEDS ORDERED: ROPIVACAINE 5 MG/ML 30 ML VIAL ONE (10:57)
[2017-06-25] MEDS ORDERED: SUCCINYLCHOLINE CHLORIDE 100 MG/5 ML SYR IV ONE (10:57)
[2017-06-25] MEDS ORDERED: PHENYLEPHRINE-0.9% NACL SYG 1 MG/10 ML SYRINGE ONE (10:57)
[2017-06-25] MEDS ORDERED: LIDOCAINE 2%-EPI 1:100,000 20 ML VIAL ONE (10:57)
[2017-06-25] MEDS ORDERED: fentaNYL (PF) 50 MCG/ML 2 ML AMP ONE (10:57)
[2017-06-25] MEDS ORDERED: LIDOCAINE 1% INJ 10MG/ML (20 ML MDV) ONE (10:57)
[2017-06-25] MEDS ORDERED: TRANEXAMIC ACID 1,000 MG/10 ML VIAL ONE (10:57)
[2017-06-25] MEDS ORDERED: GLYCOPYRROLATE 0.2 MG/ML 2 ML VIAL ONE (10:57)
[2017-06-25] MEDS ORDERED: CLINDAMYCIN 1,800 MG in SODIUM CHLORIDE 0.9% IRRIGATIO 3,000 ML IRRIGATION ONE (11:32)
[2017-06-25] MEDS ORDERED: LACTATED RINGERS 1,000 ML IV ONE (12:23)
[2017-06-25] MEDS ORDERED: MORPHINE SULFATE 4 MG/ML SYRINGE IV PRN (12:35)
[2017-06-25] MEDS ORDERED: HYDROcodone/APAP 5-325MG 1 EACH TAB PO PRN ×2 (12:35)
[2017-06-25] MEDS ORDERED: ONDANSETRON 4 MG/2 ML VIAL IVP PRN (12:35)
--- NOTE | 2017-06-25 13:06 | P.OP ---
Date of Procedure: 06/25/17 Preoperative Diagnosis: Right shoulder rotator cuff arthropathy/chronic retracted tear Postoperative Diagnosis: Same Procedure(s) Performed: Right reverse total shoulder arthroplasty Implants: Depuy Delta Xtend size 10 press-fit humeral stem, size 1 approach this, 38 mm + 12 articular surface, 38 mm glenosphere with standard baseplate. Anesthesia: ventura SANTAMARIA Surgeon: Ascencion Lentz Artist Blacksmith #1: Artemio Farrell Estimated Blood Loss (ml): 100 Pathology: other (Humeral head) Condition: stable Disposition: PACU Indications for Procedure: The patient's a 66-year-old female who presents with progressive right shoulder pain, limited motion, and weakness secondary to a chronic rotator cuff tear. She try conservative measures was persistent/worsening of her symptoms. A discussion of the risks and benefits of operative intervention versus continued conservative measures was made with the patient. She opted to proceed with surgery. Operative risks to include infection, neurovascular injury, development of blood clots, possible component loosening, possible dislocation and need for subsequent procedures was discussed. Operative Findings: As below Description of Procedure: The patient was brought to the operating room, and after induction of general anesthesia was placed in a beachchair position. The bony prominences were appropriately padded. The right upper extremity was prepped and draped in normal fashion. The bony outlines the coracoid process, distal clavicle, and acromion were outlined with a skin marker. A deltopectoral incision was then made lateral to the coracoid process. The skin was incised sharply. Subcu change tissues were divided bluntly. Cephalic vein was identified and gently retracted laterally with the deltoid. The deltopectoral interval was bluntly developed. The subdeltoid adhesions were bluntly developed. A self-retaining retractor was placed. The upper one third of the pectoralis major was released to help facilitate exposure. The biceps was medially subluxed. This was identified and tenotomized and allowed to retract distally. A large rotator cuff tear involving the supraspinatus, infraspinatus, teres minor was noted. The subscapularis was released from the center trochanter with electrocautery and tagged with a #2 Ethibond suture. The shoulder was gently dislocated. A starting hole was made in line with the humeral shaft. The canal was reamed up to a size 10. There is good distal fit and chatter. The cutting block was placed planning on 20 of retroversion. The humeral head cut was then made. Residual inferior osteophytes were removed flush with the cortical bone. Attention was then paid towards preparing the glenoid. Anterior and posterior retractors were placed. Labral tissue was released from the 12:00 to 6 o'clock position. The posterior labrum was also released. A guidepin was placed in the inferior portion the glenoid slightly tilted inferiorly. The glenoid was then reamed down to a bleeding bony surface. Peripheral osteophytes were removed. The central peg hole was then drilled. A standard glenosphere baseplate was gently impacted. The inferior, superior, and posterior screw holes were filled with locking screws the appropriate length. Good purchase was obtained. These were locked. A 38 mm glenosphere was then inserted over a guidewire and was fully seated. Attention was then paid towards preparing the proximal humerus. The appropriate broach was inserted in 20 of retroversion. The metaphysis was reamed with a size 1 episode reamer. The trial size 10/size 1 epiphysis humeral stem was inserted in 20 of retroversion. A 38 mm +12 articular surface was placed. The shoulder was gently reduced. It was taken through range of motion. I had good stability in flexion and extension with internal and external rotation. I felt there was adequate pentecostalism of soft tissue tension judging off the conjoined tendon. The shoulder was gently dislocated. The trial components were then removed. Pulsatile lavage was utilized. The bony surfaces were dried. The humeral stem was again inserted in 20 of retroversion and was fully seated. The 38 mm +12 articular surface was gently impacted. The shoulder was gently reduced. Again it was taken through range of motion and felt to be stable in flexion and extension with internal and external rotation. Again there was adequate pentecostalism of soft tissue tension. Pulsatile lavage was again utilized. The subscapularis was repaired with #2 Ethibond suture. The deltopectoral interval was closed with interrupted Vicryl sutures. The subcutaneous tissues were reapproximated a similar fashion. The skin was reapproximated with 3-0 subcuticular Prolene suture. Steri-Strips were applied. A sterile dressing was applied in addition to a sling. The patient was then awoken from general anesthesia and transferred to recovery room in good condition. Blood loss was estimated at 100 mL. No complications were incurred. Sponge and needle counts were correct at the end of the case.
[2017-06-25 13:14] LABS: Glucose,Whole Blood 219 mg/dL (75-99)
--- NOTE | 2017-06-25 13:19 | XR ---
EXAMINATION TYPE: XR shoulder limited RT DATE OF EXAM: 06/25/2017 COMPARISON: NONE HISTORY: 66-year-old female status post reverse right total shoulder arthroplasty TECHNIQUE: AP portable view. FINDINGS: Image demonstrates reverse right total shoulder arthroplasty. Both left and severe and humeral stem c omponents appear well seated without periprosthetic fracture. Alignment appears appropriate. There is moderate to severe degenerative joint space narrowing and marginal spurring at the AC joint. Scatter ed soft tissue air related to recent operation. There is a patchy right basilar density. IMPRESSION: 1. Uncomplicated postoperative appearance reverse right total shoulder arthroplasty. 2. AC joint OA. 3. Patchy right basilar density likely postoperative atelectasis. Clinically correlate.
[2017-06-25] MEDS ORDERED: INSULIN ASPART 100 UNIT/ML 1 ML 10 ML VIAL SQ ONE (13:20)
--- NOTE | 2017-06-25 15:31 | P.CONS ---
History of Present Illness - Reason for Consult Consult date: 06/25/17 Management of hypertension diabetes Requesting physician: Ascencion Lentz - Chief Complaint Consult for medical management of hypertension diabetes - History of Present Illness The patient is a 66-year-old female with a past with a history of non- insulin-dependent type 2 diabetes, essential hypertension, hypothyroidism and smoking who is postop day #0 after having a right total shoulder arthroplasty secondary to severe right shoulder osteoarthritis arthropathy and chronic tear. The patient is currently doing well denies any chest pain or shortness of breath reports that her shoulder pain is well-controlled. She does report a nonproductive cough over the last 2 weeks but denies any dyspnea on exertion. The patient is followed by Dr. Rhoades and reports her A1c was recently checked , results unknown. The patient does mention that she recently half the dose of her diabetic medication secondary to precipitating hypoglycemic episodes. The patient also reports that she was recently started on Chantix for smoking cessation, denies any adverse effects at this time Review of medical records indicate the patient A1c was 8.5. And chest x-ray showed no acute cardiopulmonary process. Review of the patient's medications indicates that the patient was actually taking a combination diabetic medication of glyburide/metformin 5/500 mg twice a day Past Medical History Past Medical History: Diabetes Mellitus, Hyperlipidemia, Hypertension, Musculoskeletal Disorder, Thyroid Disorder History of Any Multi-Drug Resistant Organisms: None Reported Past Surgical History: Section, Cholecystectomy Additional Past Surgical History / Comment(s): eye surgery 12/04, C/S x4 Past Anesthesia/Blood Transfusion Reactions: No Reported Reaction Past Psychological History: Anxiety, Depression Smoking Status: Current every day smoker Past Alcohol Use History: Rare Additional Past Alcohol Use History / Comment(s): 1ppd for since teens Past Drug Use History: None Reported - Past Family History Father Family Medical History: Coronary Artery Disease (CAD) Medications and Allergies Home Medications Medication Instructions Recorded Confirmed Type FLUoxetine HCL 20 mg PO HS 06/01/15 06/25/17 History Methimazole 5 mg PO HS 06/01/15 06/25/17 History amLODIPine BESYLATE/BENAZEPRIL 1 tab PO HS 06/01/15 06/25/17 History [amLODIPine BESYLATE/BENAZEPRIL 10-20 mg] glyBURIDE/METFORMIN HCL 0.5 tab PO BID 12/22/16 06/25/17 History [glyBURIDE/METFORMIN HCL 5-500 mg] Nitroglycerin Sl Tabs [Nitrostat] 0.4 mg SUBLINGUAL Q5M PRN tab 12/23/16 Rx Ibuprofen [Motrin Ib] 200 - 400 mg PO Q6H PRN 06/20/17 06/25/17 History Rivaroxaban [Xarelto] 10 mg PO DAILY #12 tab 06/25/17 Rx Varenicline [Chantix Starter Pack] 0.5 mg PO BID 06/25/17 06/25/17 History Allergies Allergy/AdvReac Type Severity Reaction Status Date / Time Penicillins Allergy Anaphylaxis Verified 06/25/17 12:58 Physical Exam Vitals: Vital Signs Temp Pulse Resp BP Pulse Ox 06/25/17 14:24 84 06/25/17 13:40 84 18 124/58 98 06/25/17 13:25 95 16 119/57 95 06/25/17 13:10 90 16 124/57 99 06/25/17 12:55 97.7 F 95 18 129/57 97 06/25/17 10:24 68 16 139/63 99 06/25/17 09:41 98.1 F 82 16 136/60 99 06/25/17 09:12 98.1 F 82 16 136/60 99 Intake and Output 06/25/17 06/25/17 06/25/17 06:59 14:59 22:59 Intake Total 1277 Output Total 330 Balance 947 Intake: IV 1277 Output: Urine 230 Estimated Blood Loss 100 Other: Voiding Method Indwelling Catheter Constitutional: No acute distress, conversant, pleasant Eyes: Anicteric sclerae, moist conjunctiva, no lid-lag, PERRLA ENMT: NC/AT,Oropharynx clear, no erythema, exudates Neck:Supple, FROM, no masses, or JVD, No carotid bruits; No thyromegaly Lungs: Clear to auscultation, Clear to percussion, Normal respiratory effort, no accessory muscle use Cardiovascular: Heart regular in rate and rhythm, No murmurs, gallops, or rubs no peripheral edema Abdominal: Soft Nontender, nom distended, no guarding, no rebound or rigidity, Normoactive bowel sounds No hepatomegaly, No splenomegaly, No palpable mass No abdominal wall hernia noted Skin: Normal temperature, tone, texture, turgor, No induration No subcutaneous nodules, No rash, lesions, No ulcers Extremities:No digital cyanosis No clubbing, Pedal pulses intact and symmetrical Radial pulses intact and symmetrical Normal gait and station, No calf tenderness, right shoulder in sling with noted bandages and dressings without any drainage to the bandages Psychiatric: Alert and oriented to person, place and time, Appropriate affect Intact judgement Neuro: Muscles Strength 5/5 in all 4 extremities, Sensation to light touch grossly present throughout, Cranial nerves II-XII grossly intact. No focal sensory deficits Results Labs: Abnormal Lab Results - Last 24 Hours (Table) 06/25/17 06/25/17 Range/Units 09:22 13:11 POC Glucose (mg/dL) 176 H 219 H (75-99) mg/dL Assessment and Plan (1) Type 2 diabetes mellitus with hyperglycemia Current Visit: Yes Status: Acute Code(s): E11.65 - TYPE 2 DIABETES MELLITUS WITH HYPERGLYCEMIA SNOMED Code(s): 386567058586274 (2) Hypothyroidism Current Visit: Yes Status: Acute Code(s): E03.9 - HYPOTHYROIDISM, UNSPECIFIED SNOMED Code(s): 88864251 (3) Hypertension Current Visit: No Status: Chronic Code(s): I10 - ESSENTIAL (PRIMARY) HYPERTENSION SNOMED Code(s): 28285103 (4) Smoking Current Visit: No Status: Chronic Code(s): F17.200 - NICOTINE DEPENDENCE, UNSPECIFIED, UNCOMPLICATED SNOMED Code(s): 84914521 Plan: The patient is admitted to primary service orthopedics with Dr. Pete as the patient is postop after right shoulder arthroplasty secondary to severe right shoulder osteoarthritis and arthropathy, will defer to primary team regarding ongoing pain management, patient is currently on perioperative antibiotics with clindamycin and on DVT prophylaxis with Xarelto. Review of the records indictes her A1c is 8.5 which is not at goal, patient is restarted on metformin at increased dose of 1000 mg by mouth twice a day and it glyburide dose at 2.5 mg by mouth twice a day with Accu-Cheks every before meals and at bedtime and correctional scale insulin therapy. We'll continue her Chantix for smoking cessation. We'll also continue her home antihypertensive therapy with benazepril and amlodipine. We'll continue to follow her clinical course I appreciate the consult and opportunity being involved in ongoing care of this patient
--- NOTE | 2017-06-25 15:41 | P.ONQ ---
Anesthesiology Proc Note - PNB - Peripheral Nerve Block Performed Right Interscalene Single Time Out Performed: Yes (1000) Procedure Start Time: 10:00 Procedure Stop Time: 10:10 Indication: Acute Post-Operative Pain, Dx/Pain Location (Right Shoulder Pain), Requested by physician Sedation Type: Sedate with meaningful contact maintained Preparation: Sterile Prep Position: Supine Needle Types: On-Q Needle Size: 50mm (2") Needle Gauge: 20 Technique: Ultrasound Injectate: 0.5% Ropivacaine (see comment for volume) (20ml) Blood Aspirated: No Pain Paresthesia on Injection Noted: No Resistance on Injection: Normal Events: Uneventful and Well Tolerated
[2017-06-25] MEDS: CLINDAMYCIN 900 MG in DEXTROSE 5% IN WATER 50 ML IVPB SCH ×2 (16:14)
[2017-06-25] MEDS: metFORMIN 500 MG TAB PO SCH (16:16)
[2017-06-25 16:44] LABS: Glucose,Whole Blood 194 mg/dL (75-99)
[2017-06-25] MEDS: INSULIN ASPART 100 UNIT/ML 1 ML 10 ML VIAL SQ SCH ×2 (18:03→20:46)
[2017-06-25 20:22] LABS: Glucose,Whole Blood 252 mg/dL (75-99)
[2017-06-25] MEDS ORDERED: LISINOPRIL 20 MG TAB PO SCH (21:00)
[2017-06-25] MEDS ORDERED: FLUoxetine HCL 20 MG CAP PO SCH (21:00)
[2017-06-25] MEDS ORDERED: amLODIPine 10 MG TAB PO SCH (21:00)
[2017-06-25 21:35] VITALS: RESP 15
[2017-06-26] MEDS: CLINDAMYCIN 900 MG in DEXTROSE 5% IN WATER 50 ML IVPB SCH ×2 (00:40)
[2017-06-26 07:06] LABS: Glucose,Whole Blood 189 mg/dL (75-99)
[2017-06-26 07:26] LABS: Basophils % (A) 0 %; Eosinophils % (A) 0 %; HCT 33.2 % (34.0-46.0); HGB 11.2 gm/dL (11.4-16.0); Lymphocytes # (A) 1.9 k/uL (1.0-4.8); Lymphocytes % (A) 15 %; MCHC 33.8 g/dL (31.0-37.0); MCV 85.7 fL (80.0-100.0); Mean Platelet Volume 8.4; Monocytes # (A) 0.8 k/uL (0-1.0); Monocytes % (A) 7 %; Neutrophils # (A) 9.3 k/uL (1.3-7.7); Neutrophils % (A) 76 %; Platelet Count 222 k/uL (150-450); RBC 3.88 m/uL (3.80-5.40); RDW 12.3 % (11.5-15.5); WBC 12.3 k/uL (3.8-10.6)
[2017-06-26 07:38] LABS: Cholesterol 211 mg/dL (<200); HDL Cholesterol 50 mg/dL (40-60); LDL Cholesterol,Calculated 142 mg/dL (0-99); Triglycerides 97 mg/dL (<150)
[2017-06-26] MEDS: INSULIN ASPART 100 UNIT/ML 1 ML 10 ML VIAL SQ SCH ×2 (08:15→13:07)
[2017-06-26] MEDS: metFORMIN 500 MG TAB PO SCH (08:15)
[2017-06-26] MEDS ORDERED: VARENICLINE 0.5 MG TAB PO SCH (08:30)
[2017-06-26] MEDS ORDERED: RIVAROXABAN 10 MG TAB PO SCH (09:00)
--- NOTE | 2017-06-26 10:47 | P.PN ---
Subjective Progress Note Date: 06/26/17 Patient feeling good today has no complaints, blood sugars are improved. Reporting adequate pain control postop day #1 status post right total shoulder arthroplasty. Objective - Vital Signs Vital signs: Vital Signs Temp 98.0 F 06/26/17 00:40 Pulse 93 06/26/17 00:40 Resp 15 06/26/17 00:40 BP 130/77 06/26/17 00:40 Pulse Ox 95 06/26/17 00:40 Intake & Output 06/25/17 06/26/17 06/26/17 18:59 06:59 18:59 Intake Total 5921 764 4948 Output Total 1030 500 600 Balance 247 320 420 Intake: IV 1277 Intake, IV Titration 340 420 Amount Clindamycin 900 mg In 100 100 Dextrose 5% in Water 50 ml @ 100 mls/hr IVPB Q8HR [facility] Rx#:[id number] Lactated Ringers 1,000 ml 240 320 @ 40 mls/hr IV .Q24H [facility] Rx#:[id number] Oral 480 600 Output: Urine 930 500 600 Estimated Blood Loss 100 Other: Voiding Method Indwelling Catheter Indwelling Catheter # Voids 3 - Exam Constitutional: No acute distress, conversant, pleasant Eyes: Anicteric sclerae, moist conjunctiva, no lid-lag, PERRLA ENMT: NC/AT,Oropharynx clear, no erythema, exudates Neck:Supple, FROM, no masses, or JVD, No carotid bruits; No thyromegaly Lungs: Clear to auscultation, Clear to percussion, Normal respiratory effort, no accessory muscle use Cardiovascular: Heart regular in rate and rhythm, No murmurs, gallops, or rubs no peripheral edema Abdominal: Soft Nontender, nom distended, no guarding, no rebound or rigidity, Normoactive bowel sounds No hepatomegaly, No splenomegaly, No palpable mass No abdominal wall hernia noted Skin: Normal temperature, tone, texture, turgor, No induration No subcutaneous nodules, No rash, lesions, No ulcers Extremities:No digital cyanosis No clubbing, Pedal pulses intact and symmetrical Radial pulses intact and symmetrical Normal gait and station, No calf tenderness, right shoulder in sling Psychiatric: Alert and oriented to person, place and time, Appropriate affect Intact judgement Neuro: Muscles Strength 5/5 in all 4 extremities, Sensation to light touch grossly present throughout, Cranial nerves II-XII grossly intact. No focal sensory deficits - Labs CBC & Chem 7: 06/26/17 07:08 Labs: Abnormal Lab Results - Last 24 Hours (Table) 06/25/17 06/25/17 06/25/17 Range/Units 13:11 16:40 20:19 WBC (3.8-10.6) k/uL Hgb (11.4-16.0) gm/dL Hct (34.0-46.0) % Neutrophils # (1.3-7.7) k/uL POC Glucose (mg/dL) 219 H 194 H 252 H (75-99) mg/dL Cholesterol (<200) mg/dL LDL Cholesterol, Calc (0-99) mg/dL 06/26/17 06/26/17 06/26/17 Range/Units 07:04 07:08 07:08 WBC 12.3 H (3.8-10.6) k/uL Hgb 11.2 L (11.4-16.0) gm/dL Hct 33.2 L (34.0-46.0) % Neutrophils # 9.3 H (1.3-7.7) k/uL POC Glucose (mg/dL) 189 H (75-99) mg/dL Cholesterol 211 H (<200) mg/dL LDL Cholesterol, Calc 142 H (0-99) mg/dL Assessment and Plan (1) Type 2 diabetes mellitus with hyperglycemia Narrative/Plan: * Blood sugars are improved continue metformin 1000 mg by mouth twice a day and glyburide 2.5 mg by mouth twice a day * A1c was 8.5 Current Visit: Yes Status: Acute Code(s): E11.65 - TYPE 2 DIABETES MELLITUS WITH HYPERGLYCEMIA SNOMED Code(s): 391512416176678 (2) Hypothyroidism Current Visit: Yes Status: Acute Code(s): E03.9 - HYPOTHYROIDISM, UNSPECIFIED SNOMED Code(s): 17164611 (3) Hypertension Narrative/Plan: * Blood pressure stable and controlled Current Visit: No Status: Chronic Code(s): I10 - ESSENTIAL (PRIMARY) HYPERTENSION SNOMED Code(s): 53691701 (4) Smoking Narrative/Plan: * Continue patient on Chantix starter pack, denying any adverse side effects Current Visit: No Status: Chronic Code(s): F17.200 - NICOTINE DEPENDENCE, UNSPECIFIED, UNCOMPLICATED SNOMED Code(s): 47476366 (5) Hyperlipidemia LDL goal <100 Current Visit: Yes Status: Acute Code(s): E78.5 - HYPERLIPIDEMIA, UNSPECIFIED SNOMED Code(s): 67312124 (6) Hyperlipidemia Narrative/Plan: * LDL not at goal start Lipitor 10 mg by mouth daily at bedtime Current Visit: No Status: Chronic Code(s): E78.5 - HYPERLIPIDEMIA, UNSPECIFIED SNOMED Code(s): 92689856 Plan: The patient is stable from medical standpoint acceptable and appropriate for discharge. New prescriptions metformin 1000 g by mouth twice a day, glyburide 2.5 g by mouth twice a day and Lipitor 10mg by mouth daily at bedtime
[2017-06-26] MEDS ORDERED: MORPHINE ORAL SOLN 10 MG/5 ML CUP PO PRN (11:24)
[2017-06-26 11:36] LABS: Glucose,Whole Blood 103 mg/dL (75-99)
--- NOTE | 2017-06-26 11:43 | P.PN ---
Subjective Progress Note Date: 06/26/17 Principal diagnosis: Status post reverse right total shoulder arthroplasty Patient seen today resting in her hospital bed, she appears comfortable. Her pain is controlled at this time. She denies any headaches, lightheadedness, chest pain or shortness of breath. Objective - Vital Signs Vital signs: Vital Signs Temp 98.0 F 06/26/17 00:40 Pulse 93 06/26/17 00:40 Resp 15 06/26/17 00:40 BP 130/77 06/26/17 00:40 Pulse Ox 95 06/26/17 00:40 Intake & Output 06/25/17 06/26/17 06/26/17 18:59 06:59 18:59 Intake Total 5094 318 7787 Output Total 1030 500 600 Balance 247 320 420 Intake: IV 1277 Intake, IV Titration 340 420 Amount Clindamycin 900 mg In 100 100 Dextrose 5% in Water 50 ml @ 100 mls/hr IVPB Q8HR [facility] Rx#:[id number] Lactated Ringers 1,000 ml 240 320 @ 40 mls/hr IV .Q24H [facility] Rx#:[id number] Oral 480 600 Output: Urine 930 500 600 Estimated Blood Loss 100 Other: Voiding Method Indwelling Catheter Indwelling Catheter # Voids 3 - Exam Right upper extremity: Incisions clean, dry and intact. Minimal soft tissue swelling and ecchymosis noted in the arm. Sensation to light touch throughout the extremity is intact. Extension of flexion at the wrist are intact. Radial pulses 2+ - Labs CBC & Chem 7: 06/26/17 07:08 Labs: Abnormal Lab Results - Last 24 Hours (Table) 06/25/17 06/25/17 06/25/17 Range/Units 13:11 16:40 20:19 WBC (3.8-10.6) k/uL Hgb (11.4-16.0) gm/dL Hct (34.0-46.0) % Neutrophils # (1.3-7.7) k/uL POC Glucose (mg/dL) 219 H 194 H 252 H (75-99) mg/dL Cholesterol (<200) mg/dL LDL Cholesterol, Calc (0-99) mg/dL 06/26/17 06/26/17 06/26/17 Range/Units 07:04 07:08 07:08 WBC 12.3 H (3.8-10.6) k/uL Hgb 11.2 L (11.4-16.0) gm/dL Hct 33.2 L (34.0-46.0) % Neutrophils # 9.3 H (1.3-7.7) k/uL POC Glucose (mg/dL) 189 H (75-99) mg/dL Cholesterol 211 H (<200) mg/dL LDL Cholesterol, Calc 142 H (0-99) mg/dL 06/26/17 Range/Units 11:34 WBC (3.8-10.6) k/uL Hgb (11.4-16.0) gm/dL Hct (34.0-46.0) % Neutrophils # (1.3-7.7) k/uL POC Glucose (mg/dL) 103 H (75-99) mg/dL Cholesterol (<200) mg/dL LDL Cholesterol, Calc (0-99) mg/dL Assessment and Plan Plan: Assessment: Postoperative day 1 status post reverse right total shoulder arthroplasty Plan: Pain control, we'll discharge home on oral medication GI and DVT prophylaxis, utilize Xarelto 10 mg once a day Wound care instructions were discussed, including showering instructions Utilize arm sling, pendulum exercises daily Medical recommendations Discharge planning: Patient will likely be discharged home today Time with Patient: Less than 30
--- NOTE | 2017-06-26 11:52 | P.DS ---
Providers Date of admission: 06/25/17 08:40 Expected date of discharge: 06/26/17 Attending physician: Ascencion Lentz Consults: 06/25/17 12:35 Consult Physician Routine Consulting Provider: Megan Chong Reason/Comments: medical managment Do you want consulting provider notified?: Yes 06/25/17 13:52 Consult Physician Routine Consulting Provider: Adriano Lopez Consult Reason/Comments: Medical management Do you want consulting provider notified?: Yes Primary care physician: Megan Chong Hospital Course: Date of admission: 06/25/2017 Date of discharge: 06/26/2017 Admission diagnosis: Status post reverse right total shoulder arthroplasty Discharge diagnosis: Same Attending physician: Dr. Lentz Surgical procedures: Reverse right total shoulder arthroplasty Brief history: Patient is a 66-year-old female with a history of a chronic retracted rotator cuff tear with rotator cuff arthropathy. At this point patient has failed conservative treatment measures and has opted to proceed with a elective reverse right total shoulder arthroplasty. Hospital course: Details of patient's surgery can be found in operative report. Patient tolerated the procedure well and was subsequently transported to orthopedic floor. Patient's orthopeidc and medical care was provided daily. Patient had daily laboratory tests performed for evaluation of overall blood counts. Patient had daily physical therapy to include strengthening range of motion as well as education with walker ambulation. Patient was treated with Xarelto for their postoperative DVT prophylaxis during their inpatient stay. Patient was noted to have a relatively uneventful postoperative course. Patient reported satisfactory pain control with oral pain medications by postoperative day 0. Patient showed satisfactory progress with physical therapy. Patient moved steadily through the program and had no difficulty meeting the goals by postoperative day 1. Given patient's otherwise satisfactory course and having met physical therapy goals, plan is to discharge patient home on postoperative day 1. Discharge condition/disposition: Patient will be discharged home in stable condition. Discharge medications: Instructions are given on resumption of patient's normal daily medications per primary care recommendation, in addition patient will be prescribed Stockett 5 mg/325 mg, Xarelto 10 mg . Discharge instructions: 1. Wound care and infection precautions,[keep incision dry and covered while showerin], no lotions, creams, moisturizers. No soaking, tubs, pools, hottubs. Do not scrub over the incision. 2. Utilize pendular exercises, utilize arm sling 3. Ice and elevate when necessary. Do not exceed 20 minutes per hour with ice pack. 4. Utilize compression sleeve until seen at first follow up appointment. 5. Pain meds and anticoagulants per prescription. 6. Pain medication has potential to cause constipation. Increase oral fluid and fiber intake. Contact primary care provider if you have not had a bowel movement within 48 hours after discharge 7. No anti-inflammatory medication until discussed at first post operative visit, this including Motrin, Aleve, Mobic, Diclofenac, Aspirin. 8. Follow up in office at 2 weeks postop with Nathaniel Farrell PA-C 9. Follow up with your primary care doctor 7-10 days after discharge. 10. Contact [facility] with any questions, . Procedures: Reverse right total shoulder arthroplasty Patient Condition at Discharge: Good Plan - Discharge Summary Discharge Rx Participant: Yes New Discharge Prescriptions: New Rivaroxaban [Xarelto] 10 mg PO DAILY #12 tab Atorvastatin [Lipitor] 10 mg PO HS #30 tab glyBURIDE [Diabeta] 2.5 mg PO AC-BID #60 tablet metFORMIN HCL [Glucophage] 1,000 mg PO BID-W/MEALS #60 tab Rivaroxaban [Xarelto] 10 mg PO DAILY tab Hydrocodone/Acetaminophen [Stockett 5-325] 1 - 2 each PO Q6HR PRN #60 tab PRN Reason: Pain Continue Methimazole 5 mg PO HS FLUoxetine HCL 20 mg PO HS amLODIPine BESYLATE/BENAZEPRIL [amLODIPine BESYLATE/BENAZEPRIL 10-20 mg] 1 tab PO HS Nitroglycerin Sl Tabs [Nitrostat] 0.4 mg SUBLINGUAL Q5M PRN tab PRN Reason: Chest Pain Varenicline [Chantix Starter Pack] See Taper PO DIRECTED Discontinued glyBURIDE/METFORMIN HCL [glyBURIDE/METFORMIN HCL 5-500 mg] 0.5 tab PO BID Ibuprofen [Motrin Ib] 200 - 400 mg PO Q6H PRN PRN Reason: Pain Discharge Medication List FLUoxetine HCL 20 mg PO HS 06/01/15 [History] Methimazole 5 mg PO HS 06/01/15 [History] amLODIPine BESYLATE/BENAZEPRIL [amLODIPine BESYLATE/BENAZEPRIL 10-20 mg] 1 tab PO HS 06/01/15 [History] Nitroglycerin Sl Tabs [Nitrostat] 0.4 mg SUBLINGUAL Q5M PRN tab 12/23/16 [Rx] Rivaroxaban [Xarelto] 10 mg PO DAILY #12 tab 06/25/17 [Rx] Varenicline [Chantix Starter Pack] See Taper PO DIRECTED 06/25/17 [History] Atorvastatin [Lipitor] 10 mg PO HS #30 tab 06/26/17 [Rx] Hydrocodone/Acetaminophen [Stockett 5-325] 1 - 2 each PO Q6HR PRN #60 tab 06/26/17 [Rx] Rivaroxaban [Xarelto] 10 mg PO DAILY tab 06/26/17 [Rx] glyBURIDE [Diabeta] 2.5 mg PO AC-BID #60 tablet 06/26/17 [Rx] metFORMIN HCL [Glucophage] 1,000 mg PO BID-W/MEALS #60 tab 06/26/17 [Rx] Follow up Appointment(s)/Referral(s): Megan Chong MD [Primary Care Provider] - 07/11/17 9:45 am Artemio Farrell PAC [PHYSICIAN BUSINESS ADVISOR] - 07/10/17 3:50 pm Activity/Diet/Wound Care/Special Instructions: Orthopedic Discharge Instructions: 1. Wound care and infection precautions, keep incision dry and covered while showering, no lotions, creams, moisturizers. No soaking, pools, hot tubs. Do not scrub over incision. 2. Utilize arm sling, pendulum exercises daily 3. Ice and elevate when necessary. Do not exceed 20 minutes per hour with ice pack. 4. Utilize compression sleeve until seen at first follow up appointment. 5. Pain meds and anticoagulants per prescription. 6. Pain medication has potential to cause constipation. Increase oral fluid and fiber intake. Contact primary care provider if you have not had a bowel movement within 48 hours after discharge. 7. No anti-inflammatory medication until discussed at first post operative visit, this including Motrin, Aleve, Mobic, Diclofenac 8. Follow up in office at 2 weeks postop with Nathaniel Farrell PA-C 9. Follow up with your primary care doctor 7-10 days after discharge. 10. Contact [facility] with any questions, . Discharge Disposition: HOME WITH HOME HEALTH SERVICES
[2017-06-26 12:53] VITALS: BP 143/76; PULSE 82; TEMP 98.3
[2017-06-26] MEDS: LACTATED RINGERS 1,000 ML IV SCH (13:08)
[2017-06-26] MEDS ORDERED: ATORVASTATIN 10 MG TAB PO SCH (21:00)
[2017-06-30] MEDS ORDERED: VARENICLINE 1 MG TAB PO SCH (08:30)
== END 2017-06-26 15:07 | disposition home health service (06) | DRG 483 ==
LOC: 2ORMAIN 08:40 → 3SUR 12:33
PROVIDERS: ADMIT Orthopaedic Surgery; ATTEND Orthopaedic Surgery
PROC: 0RRJ00Z Replacement of Right Shoulder Joint with Reverse Ball and Socket Synthetic Substitute, Open Approach (ICD-10-PCS; principal; 2017-06-25 10:45)
DX: M75.101 Unspecified rotator cuff tear or rupture of right shoulder, not specified as traumatic (principal); M19.011 Primary osteoarthritis, right shoulder; F17.210 Nicotine dependence, cigarettes, uncomplicated; I10 Essential (primary) hypertension; E03.9 Hypothyroidism, unspecified; E11.65 Type 2 diabetes mellitus with hyperglycemia; F41.9 Anxiety disorder, unspecified; F32.9 Major depressive disorder, single episode, unspecified; E78.5 Hyperlipidemia, unspecified; Z79.84 Long term (current) use of oral hypoglycemic drugs; Z90.49 Acquired absence of other specified parts of digestive tract; Z79.1 Long term (current) use of non-steroidal anti-inflammatories (NSAID); Z79.899 Other long term (current) drug therapy; Z88.0 Allergy status to penicillin; Z82.3 Family history of stroke; Z71.6 Tobacco abuse counseling; Z82.49 Family history of ischemic heart disease and other diseases of the circulatory system; Z79.01 Long term (current) use of anticoagulants
CPT/HCPCS: 64415; 80061; 85025; 88300

== ENCOUNTER → 2018-01-15 | Outpatient (CLI) | payer BC ==
--- NOTE | 2018-01-15 08:52 | CTL ---
EXAMINATION TYPE: CT Low Dose Lung DATE OF EXAM ORDERED: 01/15/2018 HISTORY: 67-year-old female with personal history of tobacco use. Lung cancer screening CT DLP: 123.[address] CTDI: 3.6 mGy Automated exposure control for dose reduction was used. SCREENING VISIT: Baseline COMPARISON: Radiograph 06/10/2017 TECHNIQUE: Low dose computed tomography scan was performed through the chest at 1 mm thick sections a nd reconstructed images in the coronal plane at 1 mm thick sections. Coronal and sagittal reconstruct ions performed. Coronal MIP reconstruction also generated. CT DIAGNOSTIC QUALITY: Satisfactory FINDINGS: Heart normal size without pericardial effusion. Coronary vessel calcifications are present. Aorta normal caliber with mild atherosclerotic arch calcifications and conventional arch vessel branc jayesh anatomy. Nonenlarged and a few mildly enlarged mediastinal lymph nodes are evident. Lower right paratracheal l ymph node measures 1.1 cm. Right tracheobronchial angle lymph node measures 1.1 cm. AP window lymph n ode measures 8 mm. Subcarinal lymph node measures 1.0 cm. Biapical pleural-parenchymal scarring. Mild centrilobular emphysema. Small groundglass foci of groundglass nodularity, for example, peripheral right upper lobe axial imag e 83, right upper lobe axial image 73, right upper lobe axial image 54, and left upper lobe axial neil ge 46. No suspicious pulmonary nodules seen. Tiny hiatal hernia. Visualized upper abdomen shows cholecystectomy clips. Bones: At least moderate degenerative disc disease mid to lower thoracic spine. Reverse right shoulde r arthroplasty. Degenerative changes at the bilateral sternoclavicular joints IMPRESSION: 1. LungRADS 2 'S' - Benign; no suspicious pulmonary nodules. 2. However, there is mild mediastinal lymphadenopathy measuring up to 1.1 cm. These are nonspecific a nd may be reactive/post inflammatory. 3. Additional bilateral upper lobe areas of groundglass, right greater than left suggesting small inf ectious/inflammatory foci. 4. COPD with mild emphysema. RECOMMENDATION: 1. Three-month follow-up CT to ensure stability of the mildly enlarged mediastinal lymph nodes. The a reas of groundglass can also be reassessed at that time. 2. Otherwise, continue annual low-dose lung cancer screening CT. 3. Smoking cessation. FOLLOW UP CT CHEST RECOMMENDATION: [address] LUNG RAD: Lung-Rad 2S Benign Appearance or Behavior but with potentially significant nonlung cance r finding.
== END | disposition home or self-care (01) ==
LOC: RADCTMAIN 06:29
PROVIDERS: ATTEND Family Medicine
DX: Z12.2 Encounter for screening for malignant neoplasm of respiratory organs (principal); R59.0 Localized enlarged lymph nodes; J43.9 Emphysema, unspecified; F17.210 Nicotine dependence, cigarettes, uncomplicated

== ENCOUNTER → 2018-01-18 | Outpatient (CLI) | payer BC ==
[2018-01-18 10:30] LABS: HCT 35.2 % (34.0-46.0); MCH 29.6 pg (25.0-35.0); MCV 87.2 fL (80.0-100.0); Mean Platelet Volume 7.9; Platelet Count 274 k/uL (150-450); RBC 4.03 m/uL (3.80-5.40); RDW 12.7 % (11.5-15.5); WBC 6.5 k/uL (3.8-10.6)
[2018-01-18 16:51] LABS: Albumin 4.2 g/dL (3.80-4.90); Albumin/Globulin Ratio 2.21 (1.20-2.10); Anion Gap 7.7 mmol/L (4.00-12.00); Calcium 9.7 mg/dL (8.7-10.3); Carbon Dioxide 27.3 mmol/L (21.6-31.8); Globulin 1.9 g/dL (2.1-3.7); LDL Cholesterol,Calculated 83.8 mg/dL (0.0-131.0); Potassium 4.7 mmol/L (3.5-5.5); Total Bilirubin 0.5 mg/dL (0.3-1.2); Total Protein 6.1 g/dL (6.2-8.2); VLDL Calculation 14.2 mg/dL (5.00-40.00)
== END | disposition home or self-care (01) ==
LOC: LABWHC1 09:35
PROVIDERS: ATTEND Internal Medicine Endocrinology, Diabetes & Metabolism
DX: E05.00 Thyrotoxicosis with diffuse goiter without thyrotoxic crisis or storm (principal); E11.9 Type 2 diabetes mellitus without complications; R53.83 Other fatigue; E78.00 Pure hypercholesterolemia, unspecified
CPT/HCPCS: 36415; 80053; 80061; 82043; 82570; 84481; 85027

== ENCOUNTER → 2018-02-13 | Outpatient (CLI) | payer BC ==
[2018-02-13 16:57] LABS: Appearance,Urine Clear (Clear); Bilirubin,Urine Negative (Negative); Blood,Urine Negative (Negative); Color,Urine Yellow; Glucose,Urine (UA) Negative (Negative); Ketones,Urine Negative (Negative); Leukocyte Esterase,Urine Negative (Negative); Nitrite,Urine Negative (Negative); PH, Urine 5.5 (5.0-8.0); Protein,Urine Trace (Negative); Specific Gravity,Urine 1.025 (1.001-1.035)
[2018-02-13 16:58] LABS: HCT 38.3 % (34.0-46.0); HGB 12.7 gm/dL (11.4-16.0); MCH 28.3 pg (25.0-35.0); MCHC 33.1 g/dL (31.0-37.0); MCV 85.5 fL (80.0-100.0); Mean Platelet Volume 7.5; Platelet Count 289 k/uL (150-450); RBC 4.47 m/uL (3.80-5.40); RDW 12.4 % (11.5-15.5); WBC 6.4 k/uL (3.8-10.6)
[2018-02-13 17:08] LABS: INR 0.9 (<1.2); Prothrombin Time 9.6 sec (9.0-12.0)
[2018-02-13 17:15] LABS: Anion Gap 9 mmol/L; Blood Urea Nitrogen 18 mg/dL (7-17); Carbon Dioxide 25 mmol/L (22-30); Chloride 107 mmol/L (98-107); Potassium 4.6 mmol/L (3.5-5.1); Sodium 141 mmol/L (137-145)
== END | disposition home or self-care (01) ==
LOC: LABPAT 16:20
PROVIDERS: ATTEND Orthopaedic Surgery
DX: Z01.818 Encounter for other preprocedural examination (principal); Z01.812 Encounter for preprocedural laboratory examination
CPT/HCPCS: 36415; 80051; 81003; 82565; 84520; 85027; 85610; 85730; 87070; 93005

== ENCOUNTER 2018-02-24 10:48 | Inpatient (IN) | payer BC ==
[2018-02-13 11:31] VITALS: BMI 36.2
[~2018-02-24 10:48] MED LIST changes: -DEXAMETHASONE SOD PHOSPHATE 10 MG/ML 1 ML VIAL IV ONE; +LIDOCAINE 1% 20 ML VIAL (10MG/ML) FOR IV START INTRADERMA PRN; +MIDAZOLAM (PF) 2 MG/2 ML VIAL IV PRN; -MIDAZOLAM 2 MG/2 ML VIAL IV PRN; +ONDANSETRON 4 MG/2 ML VIAL IVP ONE; -ONDANSETRON ODT 4 MG TAB PO ONE; -SCOPOLAMINE 1.5MG/72HR PATCH TRANSDERM ONE
[2018-02-24 11:29] VITALS: RESP 16
[2018-02-24] MEDS: LACTATED RINGERS 1,000 ML IV SCH ×3 (11:38→21:30)
[2018-02-24 11:39] LABS: Glucose,Whole Blood 133 mg/dL (75-99)
[2018-02-24] MEDS ORDERED: DEXAMETHASONE SOD PHOSPHATE 10 MG/ML 1 ML VIAL IV ONE (11:39)
[2018-02-24] MEDS ORDERED: MIDAZOLAM 2 MG/2 ML VIAL IV ONE ×2 (11:45→12:23)
[2018-02-24] MEDS ORDERED: fentaNYL (PF) 50 MCG/ML 2 ML AMP ONE (12:35)
[2018-02-24] MEDS ORDERED: MIDAZOLAM 2 MG/2 ML VIAL ONE (12:35)
[2018-02-24] MEDS ORDERED: PROPOFOL 10 MG/ML 20 ML VIAL IV ONE (12:35)
[2018-02-24] MEDS ORDERED: SODIUM CHLORIDE 0.9% 100 ML BAG ONE (12:35)
[2018-02-24] MEDS ORDERED: TRANEXAMIC ACID 1,000 MG/10 ML VIAL ONE (12:35)
[2018-02-24] MEDS ORDERED: ROPIVACAINE 1,100 MG, SODIUM CHLORIDE 0.9% 500 ML 330 ML MISCELLANE PRN ×2 (12:45)
--- NOTE | 2018-02-24 12:45 | P.ONQ ---
Anesthesiology Proc Note - PNB - Peripheral Nerve Block Performed Left Adductor Canal Infusion Time Out Performed: Yes Procedure Start Time: 12:25 Procedure Stop Time: 12:35 Indication: Acute Post-Operative Pain, Requested by physician (Dr Nevarez) Sedation Type: Sedate with meaningful contact maintained Preparation: Sterile Dressing Position: Supine Catheter: Indwelling Needle Types: Jeronimo Needle Size: 100mm (4") Needle Gauge: 18 Technique: Ultrasound Injectate: 0.5% Ropivacaine (see comment for volume) (30 ml) Blood Aspirated: No Pain Paresthesia on Injection Noted: No Resistance on Injection: Normal Events: Uneventful and Well Tolerated
[2018-02-24] MEDS: ROPIVACAINE 246.25 MG, EPINEPHrine 0.5 MG, KETOROLAC 30 MG, cloNIDine HCL/PF 80 MCG, WA... MISCELLANE ONE ×10 (13:23→14:15)
--- NOTE | 2018-02-24 14:53 | P.OP ---
Date of Procedure: 02/24/18 Procedure(s) Performed: PREOPERATIVE DIAGNOSIS: Left knee severe osteoarthritis with genu varum POSTOPERATIVE DIAGNOSIS: Left knee severe osteoarthritis with genu varum OPERATION: Left knee cemented total replacement arthroplasty. ANESTHESIA: Spinal ESTIMATED BLOOD LOSS: 100 ml. STITCHER UTILITY: Agnieszka Rodgers PA-C (assistance with: patient positioning, retraction, exposure, hemostasis, leg positioning, implantation, irrigation, closure, dressing) COMPLICATIONS: None apparent. COMPONENTS IMPLANTED: Persona system from [employer] INDICATIONS: Mrs. Pruett is a 67-year-old female with a history of left knee osteoarthritis. Conservative treatment has been tried and has been unsuccessful in controlling symptoms adequately. The operation of knee replacement has been discussed at length in the office, as well as potential risks and complications. These are inclusive of, but not limited to: bleeding, infection, scarring, discomfort, blood vessel and nerve damage, need for further surgery, failure to relieve symptoms, persistence, recurrence, or worsening of problems, loosening, dislocation, wear, blood clot, pulmonary embolism, , gait dysfunction, stiffness, and other risks as discussed in the office. The patient elects to proceed and the consent form has been signed. PROCEDURE: The patient was taken to the operating room and positioned on the operating room table in the supine position. Anesthesia was initiated. Care was taken to make sure that all pressure points were adequately padded. The operative lower extremity was prepped and draped in the usual aseptic fashion using ChloraPrep. Ioban drape was used for the case and the patient received intravenous antibiotics within one hour of the incision. A pneumotourniquet and leg burroughs were used for the case. The limb was exsanguinated with an Esmarch bandage and the tourniquet was inflated to 350 mmHg. Time-out was called confirming the patient's identity, side, procedure and administration of antibiotics and tranexamic acid, 1 g IV. The incision was then created midline directly over the knee, carried down through skin and into the subcutaneous tissues and down to fascia. Full thickness subcutaneous medial flap was developed. Medial parapatellar arthrotomy was performed and the interior of the knee was inspected. There was end-stage osteoarthritis of the knee with a mild to moderate genu varum type deformity. The fat pad was excised and proximal medial release on the tibia was completed using meticulous dissection and a curved osteotome. The anterior cruciate ligament was taken down. Note was made of significant attrition of the anterior and significant degenerative appearance of the posterior cruciate ligaments. The exposure was excellent. The knee was flexed 90 degrees and the patella was everted. A spot was chosen on the femur approximately 1 cm anterior to the posterior cruciate ligament insertion and an intramedullary hole was created within the femur. The intramedullary guide was then set to 5 degrees of valgus. The distal cutting block was attached and pinned into position. An appropriate amount of distal femoral resection was set. The oscillating saw was then used to make the distal femoral cut. This cut was confirmed to be flat with the flat end of an osteotome. The retractors were placed around the tibia and the tibial surface was addressed. The angle and depth of resection was adjusted using an extramedullary cutting guide. The guide had a built-in 3 degree posterior slope cut. Once the cutting guide was adjusted appropriately and in line with the axis of the tibia and confirmed to be in good position in relation to the second metatarsal and transmalleolar axis, the tibial cut was then created with protection of the posterior neurovascular structures and the collateral ligaments. The tibial cut surface was removed and sized. Femoral sizing was then accomplished using anterior referencing. Care was taken to analyze the posterior condyles for signs of deficiency or severe wear, and adjustments to the guide were made, as appropriate. 3 degree external rotation pins were placed. The cutting jig for the femur was applied to these pins. The planned cuts were further analyzed prior to performing them with the oscillating saw. No femoral notching was produced. Bone fragments were removed and the cut surfaces were finished, as necessary, with a reciprocating saw. Spacer block technique was then used to confirm that the flexion and extension gaps were equal. Soft tissue releases and adjustment of the tibial and/or femoral cuts were made, as necessary, until the gaps were equal. This included release of the posterior cruciate ligament, which was tight in this patient. The femur was then further finished for a posterior cruciate ligament substituting component. Patellar resurfacing was performed using a reamer. The size of the required patellar component was estimated and the patellar surface was then reamed down to a residual thickness which would recreate the lower sioux thickness with the component. The exact placement of the patellar component was adjusted for position based on preoperative x-rays and intraoperative findings. Prior to placing trial components, anesthetic solution consisting of ropivicaine with epinephrine, ketorolac, and clonidine was injected carefully and methodically in a grid pattern using aspiration technique into the soft tissue around the knee circumferentially, starting with the deeper tissues first and progressing to fascia, and then finally the skin/subcutaneous tissue. Particular care was taken when injecting the posterior capsule. The trial components were inserted. The tibial tray was allowed to self center and the patella was noted to track very well. The position of the tibial component was marked and the tibia was then finished for a stemmed tibial component. Cement was mixed on the back table and applied to the final components. Trial components were removed and the cut surfaces of the bone were pulse lavaged thoroughly and dried. Cement was then applied to the tibial surface and pressurized into the surface using finger pressurization technique. The tibial component was then applied and excess cement was removed after it was impacted securely and noted to be flush with the cut surface. In similar fashion, the cement was applied to the cut femoral surface, pressurized in using finger pressurization and the component was impacted into place. Excess cement was removed. The polyethylene spacer was then implanted and locked into position. The patellar component was then applied in similar technique and a patellar clamp was used to hold the patella in place as the cement hardened. Once the cement had fully hardened, the knee was reinspected. Any other cement extrusion was removed and final kinematic testing showed range of motion from 0 to 130 degrees with excellent stability, both medially and laterally and appropriate alignment of the leg. Patellar tracking was excellent. The knee was then thoroughly pulse lavaged with normal saline. The tourniquet was deflated and hemostasis was obtained with electrocautery and IV tranexamic acid, 1 g given prior to inflation of the tourniquet and another gram given at the time of closure. Closure was with #2 Ethibond in the fascia and supplemented with #2 Quill, 2-0 Vicryl suture was used for the subcutaneous tissues and 3-0 Quill for the skin. Dermabond/Steri-Strips were then applied. A lightly compressive dressing was applied using Webril and an Isidro wrap. The patient was then transferred to stretcher and taken to the recovery room in stable condition. Sponge and needle counts were correct.
[2018-02-24] MEDS ORDERED: LACTATED RINGERS 1,000 ML IV ONE ×2 (14:57)
[2018-02-24] MEDS ORDERED: HYDROcodone/APAP 5-325MG 1 EACH TAB PO PRN (15:07)
[2018-02-24] MEDS ORDERED: MAGNESIUM HYDROXIDE 2,400 MG/10 ML CUP PO PRN (15:07)
[2018-02-24] MEDS ORDERED: hydrOXYzine PAMOATE 25 MG CAP PO PRN (15:07)
[2018-02-24] MEDS ORDERED: BISACODYL 10 MG SUPP RECTAL PRN (15:07)
[2018-02-24] MEDS ORDERED: HYDROmorphone 0.5 MG/0.5 ML SYRINGE IVP PRN ×2 (15:07)
[2018-02-24] MEDS ORDERED: TEMAZEPAM 15 MG CAP PO PRN (15:07)
[2018-02-24] MEDS ORDERED: NALOXONE 0.4 MG/ML 1 ML VIAL IV PRN (15:07)
[2018-02-24] MEDS ORDERED: HYDROmorphone 1 MG/ML 1 ML SYRINGE IVP PRN (15:07)
[2018-02-24] MEDS ORDERED: NA PHOS,M-B/NA PHOS,DI-BA 133 ML ENEMA RECTAL PRN (15:07)
--- NOTE | 2018-02-24 15:59 | XR ---
EXAMINATION TYPE: XR knee limited LT DATE OF EXAM: 02/24/2018 CLINICAL HISTORY: Left knee pain and arthritis status post total knee replacement. TECHNIQUE: Portable AP and crosstable lateral views of the left knee are obtained immediately postop eratively. COMPARISON: None FINDINGS: Metallic hardware from total left knee arthroplasty is seen and appears satisfactory in al ignment and position. There is evidence of recent surgery with diffuse subcutaneous gas and soft tis jose miguel swelling noted. IMPRESSION: METALLIC HARDWARE FROM TOTAL LEFT KNEE ARTHROPLASTY IS SATISFACTORY IN ALIGNMENT.
[2018-02-24 16:04] LABS: Glucose,Whole Blood 186 mg/dL (75-99)
--- NOTE | 2018-02-24 20:42 | P.CONS ---
History of Present Illness - Reason for Consult Consult date: 02/24/18 - History of Present Illness The patient is a 67 yo F with a PMH of COPD, diabetes, hypertension, hyperlipidemia, and former smoker (quit November 2017) who is s/p scheduled left knee total replacement for severe OA. The patient underwent the procedure earlier today. The patient was seen at the bedside and notes that her pain is very well controlled and is currently 0 out of 10. She also otherwise denied any active complaints including chest pain, shortness of breath, nausea, vomiting, dizziness, headache, fever, chills, cough, diarrhea, or abdominal pain. The patient notes that she is passing urine though has not had flatus or bowel movement since the operation. Review of Systems Pertinent positives and negatives as discussed in HPI, a complete review of systems was performed and all other systems are negative. Past Medical History Past Medical History: Diabetes Mellitus, Hyperlipidemia, Hypertension, Thyroid Disorder Additional Past Medical History / Comment(s): EMPHYSEMA, HX GLAUCOMA RT EYE History of Any Multi-Drug Resistant Organisms: None Reported Past Surgical History: Section, Cholecystectomy Additional Past Surgical History / Comment(s): eye surgery 12/04, cholecystectomy Past Anesthesia/Blood Transfusion Reactions: No Reported Reaction Smoking Status: Current every day smoker Additional Past Alcohol Use History / Comment(s): 1ppd for since teens - Past Family History Father Family Medical History: Coronary Artery Disease (CAD) Medications and Allergies Home Medications Medication Instructions Recorded Confirmed Type FLUoxetine HCL 20 mg PO HS 06/01/15 02/24/18 History Methimazole 5 mg PO BID 06/01/15 02/24/18 History amLODIPine BESYLATE/BENAZEPRIL 1 tab PO HS 06/01/15 02/13/18 History [amLODIPine BESYLATE/BENAZEPRIL 10-20 mg] Atorvastatin [Lipitor] 10 mg PO HS #30 tab 06/26/17 02/24/18 Rx glyBURIDE [Diabeta] 2.5 mg PO AC-BID #60 tablet 06/26/17 02/24/18 Rx Budesonide-Formot 160-4.5 Mcg 2 puff INHALATION RT-BID 02/13/18 02/24/18 History [Symbicort 160-4.5 Mcg Inhaler] Ferrous Sulfate [Feosol] 325 mg PO BID 02/13/18 02/24/18 History Naproxen Sodium [Aleve] 220 mg PO BID PRN 02/13/18 02/24/18 History metFORMIN HCL [Glucophage] 500 mg PO BID 02/13/18 02/24/18 History Aspirin [Adult Low Dose Aspirin EC] 81 mg PO DAILY #1 tablet. 02/24/18 Rx HYDROcodone/APAP 5-325MG [[place] 1 - 2 each PO Q4-6H PRN #50 tab 02/24/18 Rx 5-325] Rivaroxaban [Xarelto] 10 mg PO DAILY #5 tab 02/24/18 Rx Sennosides-Docusate Sodium 1 tab PO BID #60 tablet 02/24/18 Rx [Senokot-S] Allergies Allergy/AdvReac Type Severity Reaction Status Date / Time Penicillins Allergy Anaphylaxis Verified 02/24/18 19:37 Physical Exam Vitals: Vital Signs Temp Pulse Pulse Resp BP BP Pulse Ox 02/24/18 18:30 78 16 144/78 96 02/24/18 17:45 80 16 152/60 96 02/24/18 16:50 84 16 164/82 94 L 02/24/18 16:35 84 16 142/67 96 02/24/18 16:20 82 16 142/67 96 02/24/18 16:05 83 16 134/61 96 02/24/18 15:50 81 16 142/67 93 L 02/24/18 15:35 77 16 138/70 91 L 02/24/18 15:20 80 16 148/84 92 L 02/24/18 15:07 97 F L 83 16 167/73 96 02/24/18 12:40 103 H 16 153/72 98 02/24/18 11:25 98.0 F 85 16 179/85 98 Intake and Output 02/24/18 02/24/18 02/24/18 06:59 14:59 22:59 Intake Total 1156 500 Output Total 50 500 Balance 1106 0 Intake: IV 1156 500 Output: Urine 500 Estimated Blood Loss 50 General: [non toxic], [no distress], [appears at stated age], [obese] Derm: [no unusual rashes/lesions] [no unusual ecchymoses], [warm], [dry] Head: [atraumatic], [normocephalic], [symmetric] Eyes: [EOMI], [no lid lag], [anicteric sclera], [pupils equal round reactive to light] ENT: [Nose and ears atraumatic], [no thrush], [no pharyngeal erythema] Neck: [No thyromegaly], [no cervical lymphadenopathy], [trachea midline], [ supple] Mouth: [no lip lesion], [mucus membranes moist] Cardiovascular: [S1S2 reg], [no murmur], [positive posterior tibial pulse bilateral], [no edema], [capillary refill less than 2 seconds] Lungs: [CTA bilateral], [no rhonchi, no rales] , [no accessory muscle use] Abdominal: [soft], [ nontender to palpation], [no guarding], [no appreciable organomegaly], [normal bowel sounds] Ext: [no gross muscle atrophy], [muscle strength 5 out of 5 in all extremities except left lower extremity due to pain], [no contractures], Isidro bandage over left knee, clean Neuro: [ CN II-XI grossly intact], [light touch intact all 4 extremities], [ finger to nose within normal limits], Psych: [Alert], [oriented], [appropriate affect] Results Labs: Abnormal Lab Results - Last 24 Hours (Table) 02/24/18 02/24/18 Range/Units 11:34 16:01 POC Glucose (mg/dL) 133 H 186 H (75-99) mg/dL Assessment and Plan Plan: Postoperative pain -Pain well-controlled with [place] 5, Dilaudid, and Mobic -As per the orthopedic service Status post left knee total replacement -Physical therapy -Continue with Xarelto for DVT prophylaxis -Continue with pain control -Continue with bowel regimen -Advised patient to take PPI while on combination NSAID and aspirin Hypertension -Continue with home medication: Norvasc and Benzapril Diabetes Mellitus type II -Hold metformin while inpatient -Lispro insulin sliding scale with fingersticks Hyper lipidemia -Continue with Lipitor 10 mg daily at bedtime COPD -Continue with Symbicort with albuterol when necessary DVT/GI prophylaxis -Xarelto -Protonix
[2018-02-24 21:00] LABS: Glucose,Whole Blood 331 mg/dL (75-99)
[2018-02-24] MEDS ORDERED: amLODIPine 10 MG TAB PO SCH (21:00)
[2018-02-24] MEDS ORDERED: LISINOPRIL 20 MG TAB PO SCH (21:00)
[2018-02-24] MEDS ORDERED: ATORVASTATIN 10 MG TAB PO SCH (21:00)
[2018-02-24] MEDS ORDERED: FLUoxetine HCL 20 MG CAP PO SCH (21:00)
[2018-02-24] MEDS ORDERED: SENNOSIDES-DOCUSATE SODIUM 1 EACH TAB PO SCH (21:00)
[2018-02-24] MEDS: FERROUS SULFATE 325 MG TAB PO SCH (21:30)
[2018-02-24] MEDS: CLINDAMYCIN 900 MG in DEXTROSE 5% IN WATER 50 ML IVPB SCH ×2 (21:30)
[2018-02-24] MEDS: INSULIN ASPART 100 UNIT/ML 1 ML 10 ML VIAL SQ SCH (21:31)
[2018-02-24] MEDS: METHIMAZOLE 5 MG TAB PO SCH (21:31)
[2018-02-25] MEDS: CLINDAMYCIN 900 MG in DEXTROSE 5% IN WATER 50 ML IVPB SCH ×2 (02:49)
[2018-02-25] MEDS: LACTATED RINGERS 1,000 ML IV SCH ×2 (02:50→12:29)
--- NOTE | 2018-02-25 05:37 | P.PN ---
Progress Note - Text Progress Note Date: 02/25/18 67 yo female status post left total knee replacement. Patient received the adductor canal catheter. Ropivacaine 0.2% at 8 mls/hr. Patient was seen today at 5:35 AM. Patient was sitting in bed comfortably. VAS score of 2/10 no complaints overnight. Assessment and plan: patient will be sent home with the adductor canal pump. Adequate pain control.
[2018-02-25] MEDS: HYDROcodone/APAP 5-325MG 1 EACH TAB PO PRN ×2 (06:59→13:25)
[2018-02-25 07:30] LABS: Glucose,Whole Blood 160 mg/dL (75-99)
[2018-02-25] MEDS ORDERED: PANTOPRAZOLE 40 MG TABLET PO SCH (07:30)
[2018-02-25] MEDS ORDERED: INSULIN ASPART 100 UNIT/ML 1 ML 10 ML VIAL SQ SCH (07:30)
[2018-02-25] MEDS: METHIMAZOLE 5 MG TAB PO SCH (07:49)
[2018-02-25] MEDS: FERROUS SULFATE 325 MG TAB PO SCH (07:49)
[2018-02-25] MEDS: INSULIN ASPART 100 UNIT/ML 1 ML 10 ML VIAL SQ SCH ×2 (07:50→12:30)
[2018-02-25 07:57] VITALS: BP 134/77; PULSE 78; TEMP 97.8
[2018-02-25] MEDS ORDERED: SYMBICORT 160-4.5 MCG INHALER INHALATION SCH (08:00)
[2018-02-25] MEDS ORDERED: RIVAROXABAN 10 MG TAB PO SCH (09:00)
[2018-02-25] MEDS ORDERED: MELOXICAM 7.5 MG TAB PO SCH (09:00)
[2018-02-25 09:27] LABS: Basophils % (A) 0 %; Eosinophils # (A) 0.1 k/uL (0-0.7); Eosinophils % (A) 1 %; HGB 11.2 gm/dL (11.4-16.0); Lymphocytes # (A) 1.8 k/uL (1.0-4.8); Lymphocytes % (A) 12 %; MCH 28.9 pg (25.0-35.0); MCV 85.2 fL (80.0-100.0); Mean Platelet Volume 7.8; Monocytes # (A) 0.8 k/uL (0-1.0); Monocytes % (A) 5 %; Neutrophils # (A) 11.6 k/uL (1.3-7.7); Neutrophils % (A) 80 %; Platelet Count 300 k/uL (150-450); RBC 3.87 m/uL (3.80-5.40); RDW 12.2 % (11.5-15.5); WBC 14.5 k/uL (3.8-10.6)
--- NOTE | 2018-02-25 11:49 | P.PN ---
Subjective Progress Note Date: 02/25/18 Patient doing well postop only reports some mild pain in the popliteal area. Patient reporting she expects to go home today has been up and ambulatory with PT. Objective - Vital Signs Vital signs: Vital Signs Temp 97.8 F 02/25/18 07:45 Pulse 78 02/25/18 07:45 Resp 16 02/25/18 07:45 BP 134/77 02/25/18 07:45 Pulse Ox 97 02/25/18 07:45 Intake & Output 02/24/18 02/25/18 02/25/18 18:59 06:59 18:59 Intake Total 1156 2380 275 Output Total 50 500 Balance 1106 1880 275 Weight 89.811 kg Intake: IV 1156 500 Intake, IV Titration 1300 Amount Clindamycin 900 mg In 100 Dextrose 5% in Water 50 ml @ 50 mls/hr IVPB Q6HR DALJIT Rx#:[id number] Lactated Ringers 1,000 ml 1200 @ 100 mls/hr IV .Q10H DALJIT Rx#:[id number] Oral 580 275 Output: Urine 500 Estimated Blood Loss 50 Other: Voiding Method Toilet # Voids 2 - Exam Constitutional: No acute distress, conversant, pleasant Eyes: Anicteric sclerae, moist conjunctiva, no lid-lag, PERRLA ENMT: NC/AT,Oropharynx clear, no erythema, exudates Neck:Supple, FROM, no masses, or JVD, No carotid bruits; No thyromegaly Lungs: Clear to auscultation, Clear to percussion, Normal respiratory effort, no accessory muscle use Cardiovascular: Heart regular in rate and rhythm, No murmurs, gallops, or rubs no peripheral edema Abdominal: Soft Nontender, nom distended, no guarding, no rebound or rigidity, Normoactive bowel sounds No hepatomegaly, No splenomegaly, No palpable mass No abdominal wall hernia noted Skin: Normal temperature, tone, texture, turgor, No induration No subcutaneous nodules, No rash, lesions, No ulcers Extremities:No digital cyanosis No clubbing, Pedal pulses intact and symmetrical Radial pulses intact and symmetrical, Isidro bandage over left knee Psychiatric: Alert and oriented to person, place and time, Appropriate affect Intact judgement Neuro: Muscles Strength 5/5 in all 4 extremities, Sensation to light touch grossly present throughout, Cranial nerves II-XII grossly intact. No focal sensory deficits - Labs CBC & Chem 7: 02/25/18 08:39 Labs: Abnormal Lab Results - Last 24 Hours (Table) 02/24/18 02/24/18 02/25/18 Range/Units 16:01 20:49 07:19 WBC (3.8-10.6) k/uL Hgb (11.4-16.0) gm/dL Hct (34.0-46.0) % Neutrophils # (1.3-7.7) k/uL POC Glucose (mg/dL) 186 H 331 H 160 H (75-99) mg/dL 02/25/18 Range/Units 08:39 WBC 14.5 H (3.8-10.6) k/uL Hgb 11.2 L (11.4-16.0) gm/dL Hct 33.0 L (34.0-46.0) % Neutrophils # 11.6 H (1.3-7.7) k/uL POC Glucose (mg/dL) (75-99) mg/dL Assessment and Plan Plan: Postoperative pain -Pain well-controlled with [place] 5, Dilaudid, and Mobic -As per the orthopedic service Status post left knee total replacement -Physical therapy -Continue with Xarelto for DVT prophylaxis -Continue with pain control -Continue with bowel regimen -Advised patient to take PPI while on combination NSAID and aspirin Hypertension -Continue with home medication: Norvasc and Benzapril Diabetes Mellitus type II -Hold metformin while inpatient -Lispro insulin sliding scale with fingersticks Hyper lipidemia -Continue with Lipitor 10 mg daily at bedtime COPD -Continue with Symbicort with albuterol when necessary DVT/GI prophylaxis -Xarelto -Protonix Disposition anticipate discharge today patient medically stable
--- NOTE | 2018-02-25 11:53 | P.DS ---
Providers Date of admission: 02/24/18 10:48 Expected date of discharge: 02/25/18 Attending physician: Woo Nevarez Consults: 02/24/18 15:07 Consult Physician Routine Consulting Provider: Adriano Lopez Consult Reason/Comments: Medical management Do you want consulting provider notified?: Yes Primary care physician: Megan Chong - Discharge Diagnosis(es) (1) Primary localized osteoarthritis of left knee Current Visit: Yes Status: Acute (2) Status post total left knee replacement Current Visit: Yes Status: Acute Hospital Course: This is a 67-year-old female who was last seen with complaint of continued left knee pain. The patient has a known history of degenerative arthritis of the left knee and presents to discuss surgical options. After discussion and consideration the patient elects to proceed with total left knee arthroplasty. The patient is seen preoperatively by her primary care physician and cleared for surgery. The patient is admitted to [facility] for total left knee arthroplasty. The procedures performed without complication or sequelae. He is doing well postoperatively. Vital signs are stable at discharge. Labs are stable at discharge. the patient is ambulating well with walker with minimal assistance. The patient is discharged to home on postop day #1 pending medical clearance. Please see orders and refer to the [facility] rec for accurate list of medications. Patient Condition at Discharge: Good Plan - Discharge Summary Discharge Rx Participant: Yes New Discharge Prescriptions: New Aspirin [Adult Low Dose Aspirin EC] 81 mg PO DAILY #1 tablet. HYDROcodone/APAP 5-325MG [[place] 5-325] 1 - 2 each PO Q4-6H PRN #50 tab PRN Reason: Pain Rivaroxaban [Xarelto] 10 mg PO DAILY #5 tab Sennosides-Docusate Sodium [Senokot-S] 1 tab PO BID #60 tablet No Action Methimazole 5 mg PO BID FLUoxetine HCL 20 mg PO HS amLODIPine BESYLATE/BENAZEPRIL [amLODIPine BESYLATE/BENAZEPRIL 10-20 mg] 1 tab PO HS Atorvastatin [Lipitor] 10 mg PO HS #30 tab glyBURIDE [Diabeta] 2.5 mg PO AC-BID #60 tablet Naproxen Sodium [Aleve] 220 mg PO BID PRN PRN Reason: Pain Ferrous Sulfate [Feosol] 325 mg PO BID Budesonide-Formot 160-4.5 Mcg [Symbicort 160-4.5 Mcg Inhaler] 2 puff INHALATION RT-BID metFORMIN HCL [Glucophage] 500 mg PO BID Discharge Medication List FLUoxetine HCL 20 mg PO HS 06/01/15 [History] Methimazole 5 mg PO BID 06/01/15 [History] amLODIPine BESYLATE/BENAZEPRIL [amLODIPine BESYLATE/BENAZEPRIL 10-20 mg] 1 tab PO HS 06/01/15 [History] Atorvastatin [Lipitor] 10 mg PO HS #30 tab 06/26/17 [Rx] glyBURIDE [Diabeta] 2.5 mg PO AC-BID #60 tablet 06/26/17 [Rx] Budesonide-Formot 160-4.5 Mcg [Symbicort 160-4.5 Mcg Inhaler] 2 puff INHALATION RT-BID 02/13/18 [History] Ferrous Sulfate [Feosol] 325 mg PO BID 02/13/18 [History] Naproxen Sodium [Aleve] 220 mg PO BID PRN 02/13/18 [History] metFORMIN HCL [Glucophage] 500 mg PO BID 02/13/18 [History] Aspirin [Adult Low Dose Aspirin EC] 81 mg PO DAILY #1 tablet. 02/24/18 [Rx] HYDROcodone/APAP 5-325MG [[place] 5-325] 1 - 2 each PO Q4-6H PRN #50 tab 02/24/18 [Rx] Rivaroxaban [Xarelto] 10 mg PO DAILY #5 tab 02/24/18 [Rx] Sennosides-Docusate Sodium [Senokot-S] 1 tab PO BID #60 tablet 02/24/18 [Rx] Follow up Appointment(s)/Referral(s): Agnieszka Rodgers PAC [PHYSICIAN SUPER[employer]] - 03/07/18 2:30 pm Megan Chong MD [Primary Care Provider] - 02/26/18 1:45 pm [facility], [NON-STAFF] - Ambulatory/Diagnostic Orders: Continuous Passive Motion (CPM) Machine [DME.AMB1] Time Frame: 3 Weeks, Facility : [facility], Location: Case Management Patient Instructions/Handouts: Knee Replacement (DC) Activity/Diet/Wound Care/Special Instructions: May shower if no drainage from incision. May bear weight as tolerated w walker. Continuous Passive Motion Machine (CPM) - [facility] - please call [phone] once home to arrange delivery Walker - [facility] - will deliver to bedside before discharge Discharge Disposition: HOME SELF-CARE
[2018-02-25] MEDS ORDERED: MULTIVITAMINS, THERA 1 EACH TAB PO SCH (12:00)
[2018-02-25 12:16] LABS: Glucose,Whole Blood 208 mg/dL (75-99)
[2018-02-25 18:21] LABS: Hemoglobin A1C 6.6 % (4.0-6.0)
== END 2018-02-25 15:04 | disposition home or self-care (01) | DRG 470 ==
LOC: 2ORMAIN 10:48 → 4SSUR 18:14
PROVIDERS: ADMIT Orthopaedic Surgery; ATTEND Orthopaedic Surgery
PROC: 0SRD0J9 Replacement of Left Knee Joint with Synthetic Substitute, Cemented, Open Approach (ICD-10-PCS; principal; 2018-02-24 12:30)
DX: M17.12 Unilateral primary osteoarthritis, left knee (principal); M21.162 Varus deformity, not elsewhere classified, left knee; E11.9 Type 2 diabetes mellitus without complications; E78.5 Hyperlipidemia, unspecified; H40.9 Unspecified glaucoma; I10 Essential (primary) hypertension; J43.9 Emphysema, unspecified; Z79.01 Long term (current) use of anticoagulants; Z79.51 Long term (current) use of inhaled steroids; Z79.82 Long term (current) use of aspirin; Z79.84 Long term (current) use of oral hypoglycemic drugs; Z79.899 Other long term (current) drug therapy; Z82.49 Family history of ischemic heart disease and other diseases of the circulatory system; Z88.0 Allergy status to penicillin; Z87.891 Personal history of nicotine dependence; Z79.891 Long term (current) use of opiate analgesic
CPT/HCPCS: 83036; 85025; 88300

== ENCOUNTER → 2018-03-26 | Outpatient (CLI) | payer BC ==
[2018-03-27 01:43] LABS: Hemoglobin A1C 6.5 % (4.0-6.0)
== END | disposition home or self-care (01) ==
LOC: LABWHC1 16:03
PROVIDERS: ATTEND Family Medicine
DX: E11.9 Type 2 diabetes mellitus without complications (principal); R59.0 Localized enlarged lymph nodes; R91.8 Other nonspecific abnormal finding of lung field
CPT/HCPCS: 36415; 82565; 83036; 84520

== ENCOUNTER → 2018-04-08 | Outpatient (CLI) | payer BC ==
[2018-04-08 17:34] LABS: Blood Urea Nitrogen 17 mg/dL (7-17)
--- NOTE | 2018-04-09 08:52 | CT ---
EXAMINATION TYPE: CT chest w con DATE OF EXAM: 04/08/2018 COMPARISON: 01/15/2018 HISTORY: prior abnormal chest CT CT DLP: 531 mGycm. Automated Exposure Control for Dose Reduction was Utilized. TECHNIQUE: CT scan of the thorax is performed following with IV Contrast, patient injected with 100 mL of Isovue 300. FINDINGS: LUNGS: There is a similar appearing degree of right apical fibrotic change. Multifocal right apical p leural thickening less than 2 mm is again redemonstrated on series 4 image 12 as seen on the prior. T he majority of the previously seen scattered groundglass opacities are unchanged from the prior of and the right upper lobe, however some of these groundglass opacities have resolved. For ins tance a groundglass opacity seen anteriorly within the upper lobe on series 4 image 85 on the prior i s no longer evident. Additionally left apical groundglass opacity marked on series 4 image 46 on the prior exam is resolved as well. There are scattered few pulmonary cysts. Mild background emphysematous changes seen of the lungs. MEDIASTINUM: There are no greater than 1 cm hilar or mediastinal lymph nodes. Mediastinal lymph nod es have decreased in size. No pericardial effusion is seen. Moderate coronary calcifications are pre sent. OTHER: Hepatic parenchyma is diffusely hypoattenuated in comparison to that of the spleen, most comm only seen in hepatic steatosis. This finding limits evaluation for hepatic masses. No gross evidence of hepatic mass is seen. No intrahepatic biliary ductal dilatation. Gallbladder surgically absent. Mo derate degenerative changes of the thoracic spine are again noted. Extensive atherosclerosis of the v isualized upper thoracic aorta is seen. There is thickening of the left adrenal gland without focal m easurable nodule suggesting underlying adrenal gland hyperplasia. Tiny hiatal hernia is again noted. Right humeral arthroplasty is partially visualized. IMPRESSION: 1. Resolution of new groundglass opacities however few other right-sided groundglass opacities remain . Follow-up is recommended in 6 months to ensure stability. These opacities may represent multifocal pneumonitis of infectious or inflammatory etiology although slow-growing lung cancer such as bronchoa lveolar carcinoma can present as groundglass opacities. 2. Resolution the previously seen mediastinal adenopathy. 3. Mild emphysematous changes and other incidental findings as described above.
== END | disposition home or self-care (01) ==
LOC: RADCTMAIN 17:01
PROVIDERS: ATTEND Family Medicine
DX: J43.9 Emphysema, unspecified (principal); R91.8 Other nonspecific abnormal finding of lung field; R59.0 Localized enlarged lymph nodes
CPT/HCPCS: 82565; 84520; 71260; 36415; Q9967

== ENCOUNTER → 2018-05-23 | Outpatient (CLI) | payer BC ==
[2018-05-23 17:30] LABS: HCT 35.3 % (34.0-46.0); MCH 27.6 pg (25.0-35.0); MCHC 34.1 g/dL (31.0-37.0); MCV 80.9 fL (80.0-100.0); Mean Platelet Volume 9.8; Platelet Count 326 k/uL (150-450); RBC 4.37 m/uL (3.80-5.40); RDW 13.9 % (11.5-15.5); WBC 8.3 k/uL (3.8-10.6)
[2018-05-23 17:33] LABS: INR 0.9 (<1.2); Partial Thromboplastin Time 24.6 sec (22.0-30.0); Prothrombin Time 9.6 sec (9.0-12.0)
[2018-05-23 18:04] LABS: Appearance,Urine Clear (Clear); Bilirubin,Urine Negative (Negative); Blood,Urine Negative (Negative); Color,Urine Yellow; Glucose,Urine (UA) Negative (Negative); Ketones,Urine Negative (Negative); Leukocyte Esterase,Urine Negative (Negative); Nitrite,Urine Negative (Negative); Protein,Urine Negative (Negative); Specific Gravity,Urine 1.029 (1.001-1.035); Urobilinogen,Urine <2.0 mg/dL (<2.0)
[2018-05-23 23:36] LABS: Anion Gap 10.7 mmol/L (4.00-12.00); Carbon Dioxide 23.3 mmol/L (21.6-31.8); Potassium 4.5 mmol/L (3.5-5.5)
== END | disposition home or self-care (01) ==
LOC: LABWHC1 16:10
PROVIDERS: ATTEND Orthopaedic Surgery
DX: Z01.812 Encounter for preprocedural laboratory examination (principal); M17.11 Unilateral primary osteoarthritis, right knee
CPT/HCPCS: 36415; 80051; 81003; 82565; 84520; 85027; 85610; 85730; 87070

== ENCOUNTER 2018-06-02 10:47 | Inpatient (IN) | payer BC ==
[~2018-06-02 10:47] MED LIST changes: -ACETAMINOPHEN TAB 500 MG TAB PO ONE; -LIDOCAINE 1% 20 ML VIAL (10MG/ML) FOR IV START INTRADERMA PRN; -MELOXICAM 7.5 MG TAB PO ONE; -MIDAZOLAM (PF) 2 MG/2 ML VIAL IV PRN; +TRANEXAMIC ACID 1,000 MG in SODIUM CHLORIDE 0.9% 100 ML IVPB ONE; -TRANEXAMIC ACID 1,000 MG in SODIUM CHLORIDE 0.9% 50 ML IVPB ONE
[2018-06-02] MEDS: LIDOCAINE 1% 20 ML VIAL (10MG/ML) FOR IV START INTRADERMA PRN ×2 (11:15→11:30)
[2018-06-02] MEDS: LACTATED RINGERS 1,000 ML IV SCH ×2 (11:15→18:42)
[2018-06-02] MEDS: ACETAMINOPHEN TAB 500 MG TAB PO ONE ×2 (11:16→18:32)
[2018-06-02] MEDS: MELOXICAM 7.5 MG TAB PO ONE ×2 (11:16→18:33)
[2018-06-02 11:17] LABS: Glucose,Whole Blood 173 mg/dL (75-99)
[2018-06-02] MEDS: ONDANSETRON 4 MG/2 ML VIAL IVP ONE ×2 (11:17→18:33)
[2018-06-02] MEDS: DEXAMETHASONE SOD PHOSPHATE 10 MG/ML 1 ML VIAL IV ONE ×2 (11:17→19:05)
[2018-06-02] MEDS: MIDAZOLAM (PF) 2 MG/2 ML VIAL IV PRN ×2 (11:32→11:34)
[2018-06-02] MEDS ORDERED: ROPIVACAINE 1,100 MG, SODIUM CHLORIDE 0.9% 500 ML 330 ML MISCELLANE PRN ×2 (11:50)
--- NOTE | 2018-06-02 11:50 | P.ONQ ---
Anesthesiology Proc Note - PNB - Peripheral Nerve Block Performed Right Adductor Canal Infusion Time Out Performed: Yes (11:31) Procedure Start Time: :32 Procedure Stop Time: : Indication: Acute Post-Operative Pain, Requested by physician (Dr Nevarez) Sedation Type: Sedate with meaningful contact maintained Preparation: Sterile Dressing Position: Supine Catheter: Indwelling Needle Types: On-Q Needle Size: 100mm (4") Needle Gauge: 20 Technique: Ultrasound Injectate: 0.5% Ropivacaine (see comment for volume) (30 mls) Blood Aspirated: No Pain Paresthesia on Injection Noted: No Resistance on Injection: Normal Events: Uneventful and Well Tolerated
[2018-06-02] MEDS ORDERED: ROPIVACAINE 246.25 MG, EPINEPHrine 0.5 MG, KETOROLAC 30 MG, cloNIDine HCL/PF 80 MCG, WA... MISCELLANE ONE ×5 (12:42)
[2018-06-02] MEDS ORDERED: SODIUM CHLORIDE 0.9% 100 ML BAG ONE (13:30)
[2018-06-02] MEDS ORDERED: fentaNYL (PF) 50 MCG/ML 2 ML AMP ONE (13:30)
[2018-06-02] MEDS ORDERED: diphenhydrAMINE 50 MG/ML 1 ML VIAL ONE (13:30)
[2018-06-02] MEDS ORDERED: TRANEXAMIC ACID 1,000 MG/10 ML VIAL ONE (13:30)
[2018-06-02] MEDS ORDERED: MIDAZOLAM 2 MG/2 ML VIAL ONE (13:30)
[2018-06-02] MEDS ORDERED: CLINDAMYCIN 1,800 MG in SODIUM CHLORIDE 0.9% IRRIGATIO 3,000 ML IRRIGATION ONE (14:02)
[2018-06-02] MEDS ORDERED: LACTATED RINGERS 1,000 ML IV ONE ×2 (14:08)
[2018-06-02] MEDS ORDERED: ONDANSETRON 4 MG/2 ML VIAL IVP PRN (15:52)
[2018-06-02] MEDS ORDERED: BISACODYL 10 MG SUPP RECTAL PRN (15:52)
[2018-06-02] MEDS ORDERED: MAGNESIUM HYDROXIDE 2,400 MG/10 ML CUP PO PRN (15:52)
[2018-06-02] MEDS ORDERED: HYDROmorphone 0.5 MG/0.5 ML SYRINGE IVP PRN ×3 (15:52)
[2018-06-02] MEDS ORDERED: NA PHOS,M-B/NA PHOS,DI-BA 133 ML ENEMA RECTAL PRN (15:52)
[2018-06-02] MEDS ORDERED: HYDROcodone/APAP 5-325MG 1 EACH TAB PO PRN (15:52)
[2018-06-02] MEDS ORDERED: NALOXONE 0.4 MG/ML 1 ML VIAL IV PRN (15:52)
[2018-06-02] MEDS ORDERED: ceFAZolin IN SWFI 2 GM/20 ML SYRINGE IVP SCH (16:00)
--- NOTE | 2018-06-02 16:25 | XR ---
EXAMINATION TYPE: XR knee limited RT DATE OF EXAM: 06/02/2018 CLINICAL HISTORY: Right knee pain and arthritis status post total knee replacement. TECHNIQUE: Portable AP and crosstable lateral views of the right knee are obtained immediately posto peratively. COMPARISON: None FINDINGS: Metallic hardware from total right knee arthroplasty is seen and appears satisfactory in a lignment and position. There is evidence of recent surgery with diffuse subcutaneous gas and soft ti ssue swelling noted. IMPRESSION: METALLIC HARDWARE FROM TOTAL RIGHT KNEE ARTHROPLASTY IS SATISFACTORY IN ALIGNMENT.
--- NOTE | 2018-06-02 16:42 | P.OP ---
Date of Procedure: 06/02/18 Procedure(s) Performed: PREOPERATIVE DIAGNOSIS: Right knee severe osteoarthritis with genu varum POSTOPERATIVE DIAGNOSIS: Right knee severe osteoarthritis with genu varum OPERATION: Right knee cemented total replacement arthroplasty. ANESTHESIA: Spinal ESTIMATED BLOOD LOSS: 100 ml. RETAIL PROPERTY MANAGER: Agnieskza Rodgers PA-C (assistance with: patient positioning, retraction, exposure, hemostasis, leg positioning, implantation, irrigation, closure, dressing) COMPLICATIONS: None apparent. COMPONENTS IMPLANTED: Persona system from [employer] INDICATIONS: Mrs. Pruett is a 67 year old female with a history of right knee osteoarthritis. She has already successfully undergone left knee replacement. The patient's right knee is end-stage, and conservative management has failed. The operation of knee replacement has been discussed at length in the office, as well as potential risks and complications. These are inclusive of, but not limited to: bleeding, infection, scarring, discomfort, blood vessel and nerve damage, need for further surgery, failure to relieve symptoms, persistence, recurrence, or worsening of problems, loosening, dislocation, wear, blood clot, pulmonary embolism, , gait dysfunction, stiffness, and other risks as discussed in the office. The patient elects to proceed and the consent form has been signed. PROCEDURE: The patient was taken to the operating room and positioned on the operating room table in the supine position. Anesthesia was initiated. Care was taken to make sure that all pressure points were adequately padded. The operative lower extremity was prepped and draped in the usual aseptic fashion using ChloraPrep. Ioban drape was used for the case and the patient received intravenous antibiotics within one hour of the incision. A pneumotourniquet and leg burroughs were used for the case. The limb was exsanguinated with an Esmarch bandage and the tourniquet was inflated to 350 mmHg. Time-out was called confirming the patient's identity, side, procedure and administration of antibiotics and tranexamic acid. The incision was then created midline directly over the knee, carried down through skin and into the subcutaneous tissues and down to fascia. Full thickness subcutaneous medial flap was developed. Medial parapatellar arthrotomy was performed and the interior of the knee was inspected. There was end-stage osteoarthritis of the knee with a mild to moderate genu varum type deformity. The fat pad was excised and proximal medial release on the tibia was completed using meticulous dissection and a curved osteotome. The anterior cruciate ligament was taken down. Note was made of significant attrition of the anterior and significant degenerative appearance of the cruciate ligaments. The exposure was excellent. The knee was flexed 90 degrees and the patella was everted. A spot was chosen on the femur approximately 1 cm anterior to the posterior cruciate ligament insertion and an intramedullary hole was created within the femur. The intramedullary guide was then set to 5 degrees of valgus. The distal cutting block was attached and pinned into position. An appropriate amount of distal femoral resection was set. The oscillating saw was then used to make the distal femoral cut. This cut was confirmed to be flat with the flat end of an osteotome. The retractors were placed around the tibia and the tibial surface was addressed. The angle and depth of resection was adjusted using an extramedullary cutting guide. The guide had a built-in 3 degree posterior slope cut. Once the cutting guide was adjusted appropriately and in line with the axis of the tibia and confirmed to be in good position in relation to the second metatarsal and transmalleolar axis, the tibial cut was then created with protection of the posterior neurovascular structures and the collateral ligaments. The tibial cut surface was removed and sized. Femoral sizing was then accomplished using anterior referencing. Care was taken to analyze the posterior condyles for signs of deficiency or severe wear, and adjustments to the guide were made, as appropriate. 3 degree external rotation pins were placed. The cutting jig for the femur was applied to these pins. The planned cuts were further analyzed prior to performing them with the oscillating saw. No femoral notching was produced. Bone fragments were removed and the cut surfaces were finished, as necessary, with a reciprocating saw. Spacer block technique was then used to confirm that the flexion and extension gaps were equal. Soft tissue releases and adjustment of the tibial and/or femoral cuts were made, as necessary, until the gaps were equal. This included release of the posterior cruciate ligament, which was excessively tight in this patient. The femur was then further finished for a posterior cruciate ligament substituting component. Patellar resurfacing was performed using a reamer. The size of the required patellar component was estimated and the patellar surface was then reamed down to a residual thickness which would recreate the [place] thickness with the compo nent. The exact placement of the patellar component was adjusted for position based on preoperative x-rays and intraoperative findings. Prior to placing trial components, anesthetic solution consisting of ropivicaine with epinephrine, ketorolac, and clonidine was injected carefully and methodically in a grid pattern using aspiration technique into the soft tissue around the knee circumferentially, starting with the deeper tissues first and progressing to fascia, and then finally the skin/subcutaneous tissue. Particular care was taken when injecting the posterior capsule. The trial components were inserted. The tibial tray was allowed to self center and the patella was noted to track very well. The position of the tibial component was marked and the tibia was then finished for a stemmed tibial component. Cement was mixed on the back table and applied to the final components. Trial components were removed and the cut surfaces of the bone were pulse lavaged thoroughly and dried. Cement was then applied to the tibial surface and pressurized into the surface using finger pressurization technique. The tibial component was then applied and excess cement was removed after it was impacted securely and noted to be flush with the cut surface. In similar fashion, the cement was applied to the cut femoral surface, pressurized in using finger pressurization and the component was impacted into place. Excess cement was removed. The polyethylene spacer was then implanted and locked into position. The patellar component was then applied in similar technique and a patellar clamp was used to hold the patella in place as the cement hardened. Once the cement had fully hardened, the knee was reinspected. Any other cement extrusion was removed and final kinematic testing showed range of motion from 0 to 130 degrees with excellent stability, both medially and laterally and appropriate alignment of the leg. Patellar tracking was excellent. The knee was then thoroughly pulse lavaged with normal saline. The tourniquet was deflated and hemostasis was obtained with electrocautery and IV tranexamic acid, 1 g given at the start of the operation and 1 g at the start of closure. Closure was with #2 Ethibond in the fascia/capsule and supplemented with #2 Quill, 2-0 Vicryl suture was used for the subcutaneous tissues and 3-0 Quill for the skin. Dermabond/Steri-Strips were then applied. A lightly compressive dressing was applied using Webril and an Isidro wrap. The patient was then transferred to stretcher and taken to the recovery room in stable condition. Sponge and needle counts were correct.
[2018-06-02 16:53] LABS: Glucose,Whole Blood 206 mg/dL (75-99)
[2018-06-02 18:24] VITALS: BMI 35.9
[2018-06-02] MEDS ORDERED: SENNOSIDES-DOCUSATE SODIUM 1 EACH TAB PO SCH (21:00)
[2018-06-02] MEDS: CLINDAMYCIN 600 MG in DEXTROSE 5% IN WATER 50 ML IVPB SCH ×2 (21:13)
[2018-06-02 21:15] LABS: Glucose,Whole Blood 392 mg/dL (75-99)
--- NOTE | 2018-06-02 21:31 | P.CONS ---
History of Present Illness - Reason for Consult Consult date: 06/02/18 - History of Present Illness The patient is a 67 yo F with a PMH of HTN, HLD, DM, COPD and malcolm knee OA (s/p L knee total arthroplasty 02/2018) who was admitted for scheduled R knee total arthroplasty which the patient underwent earlier today uneventfully. The patient has history of severe malcolm knee OA which had failed conservative management. The patient reports that her pain is very well controlled and currently at a 0/10. She reported ambulating to the bathroom and urinating though hasn't had flatus or a bowel movement post-operatively. She otherwise denied chest pain, SOB, nausea, vomiting, diarrhea, abdominal pain, fever, chills, or cough. Review of Systems Pertinent positives and negatives as discussed in HPI, a complete review of systems was performed and all other systems are negative. Past Medical History Past Medical History: Diabetes Mellitus, Hyperlipidemia, Hypertension, Thyroid Disorder Additional Past Medical History / Comment(s): EMPHYSEMA, HX GLAUCOMA RT EYE History of Any Multi-Drug Resistant Organisms: None Reported Past Surgical History: Section, Cholecystectomy Additional Past Surgical History / Comment(s): eye surgery 12/04, cholecystectomy Past Anesthesia/Blood Transfusion Reactions: No Reported Reaction Past Psychological History: Anxiety, Depression Smoking Status: Former smoker Past Alcohol Use History: Rare Additional Past Alcohol Use History / Comment(s): 1ppd for since teens Past Drug Use History: Prescription Drug Abuse Additional Drug Use History / Comment(s): STATES PAST HX - Past Family History Father Family Medical History: Coronary Artery Disease (CAD) Medications and Allergies Home Medications Medication Instructions Recorded Confirmed Type FLUoxetine HCL 20 mg PO HS 06/01/15 06/02/18 History Methimazole 5 mg PO BID 06/01/15 06/02/18 History amLODIPine BESYLATE/BENAZEPRIL 1 tab PO HS 06/01/15 06/02/18 History [amLODIPine BESYLATE/BENAZEPRIL 10-20 MG] Atorvastatin [Lipitor] 10 mg PO HS #30 tab 06/26/17 06/02/18 Rx glyBURIDE [Diabeta] 2.5 mg PO AC-BID #60 tablet 06/26/17 06/02/18 Rx Budesonide-Formot 160-4.5 Mcg 2 puff INHALATION RT-BID 02/13/18 06/02/18 History [Symbicort 160-4.5 Mcg Inhaler] Ferrous Sulfate [Feosol] 325 mg PO BID 02/13/18 06/02/18 History Naproxen Sodium [Aleve] 220 mg PO BID PRN 02/13/18 06/02/18 History metFORMIN HCL [Glucophage] 500 mg PO BID 02/13/18 06/02/18 History Aspirin [Adult Low Dose Aspirin EC] 81 mg PO DAILY #1 tablet. 02/24/18 06/02/18 Rx Sennosides-Docusate Sodium 1 tab PO BID #60 tablet 02/24/18 06/02/18 Rx [Senokot-S] Aspirin [Adult Low Dose Aspirin EC] 81 mg PO DAILY #1 tablet. 06/02/18 Rx HYDROcodone/APAP 5-325MG [[place] 1 - 2 each PO Q4-6H PRN #50 tab 06/02/18 Rx 5-325] Rivaroxaban [Xarelto] 10 mg PO DAILY #5 tab 06/02/18 Rx Sennosides-Docusate Sodium 1 tab PO BID #60 tablet 06/02/18 Rx [Senokot-S] Allergies Allergy/AdvReac Type Severity Reaction Status Date / Time Penicillins Allergy Anaphylaxis Verified 06/02/18 17:01 Physical Exam Vitals: Vital Signs Temp Pulse Pulse Resp BP Pulse Ox 06/02/18 19:47 98.7 F 107 H 20 152/71 94 L 06/02/18 18:25 104 H 117/51 95 06/02/18 18:00 98 129/67 94 L 06/02/18 17:45 91 149/71 98 06/02/18 17:30 90 153/87 97 06/02/18 17:15 81 118/66 96 06/02/18 17:00 98.2 F 82 16 123/67 97 06/02/18 16:15 87 18 119/58 100 06/02/18 16:00 85 16 131/55 95 06/02/18 15:48 96 F L 85 16 127/59 96 06/02/18 11:06 98.9 F 94 18 143/67 97 Intake and Output 06/02/18 06/02/18 06/02/18 06:59 14:59 22:59 Intake Total 1057 600 Output Total 50 Balance 1057 550 Intake: IV 1057 600 Output: Estimated Blood Loss 50 General: non toxic, no distress, appears at stated age, obese Derm: no unusual rashes/lesions no unusual ecchymoses, warm, dry Head: atraumatic, normocephalic, symmetric Eyes: EOMI, no lid lag, anicteric sclera, pupils equal round reactive to light ENT: Nose and ears atraumatic, no thrush, no pharyngeal erythema Neck: No thyromegaly, no cervical lymphadenopathy, trachea midline, supple Mouth: no lip lesion, mucus membranes moist Cardiovascular: S1S2 reg, no murmur, positive posterior tibial pulse bilateral, no edema, capillary refill less than 2 seconds Lungs: CTA bilateral, no rhonchi, no rales , no accessory muscle use Abdominal: soft, nontender to palpation, no guarding, no appreciable organomegaly, normal bowel sounds Ext: no gross muscle atrophy, muscle strength 5 out of 5 in all extremities other than right lower extremity due to pain, right knee Isidro bandage in place, clean, dry, no contractures Neuro: CN II-XI grossly intact, light touch intact all 4 extremities, finger to nose within normal limits, Psych: Alert, oriented, appropriate affect Results Labs: Abnormal Lab Results - Last 24 Hours (Table) 06/02/18 06/02/18 06/02/18 Range/Units 11:15 16:43 20:59 POC Glucose (mg/dL) 173 H 206 H 392 H (75-99) mg/dL Assessment and Plan Plan: Post-operative pain -As per the orthopedic service -Currently on Dilaudid, Mobic, and [place] Status post right total knee arthroplasty -As per orthopedic service -Pain control -Bowel regimen -Physical therapy -Advised the patient that she should take a PPI while she is on dual therapy with NSAIDs and aspirin Hypertension -Resume home medications Diabetes mellitus -Hold metformin -Lispro sliding scale and blood glucose monitoring Hyperlipidemia -Resume home medications COPD -Resume Symbicort daily with albuterol as needed DVT/GI prophylaxis -Xarelto -- as per orthopedic service -Protonix
[2018-06-02] MEDS ORDERED: TEMAZEPAM 15 MG CAP PO PRN (22:00)
[2018-06-02] MEDS ORDERED: amLODIPine 10 MG TAB PO SCH (22:15)
[2018-06-02] MEDS ORDERED: ATORVASTATIN 10 MG TAB PO SCH (22:15)
[2018-06-02] MEDS ORDERED: FLUoxetine HCL 20 MG CAP PO SCH (22:15)
[2018-06-02] MEDS ORDERED: LISINOPRIL 20 MG TAB PO SCH (22:15)
[2018-06-02] MEDS: METHIMAZOLE 5 MG TAB PO SCH (22:35)
[2018-06-03] MEDS: CLINDAMYCIN 600 MG in DEXTROSE 5% IN WATER 50 ML IVPB SCH ×4 (04:45→12:02)
[2018-06-03] MEDS: LACTATED RINGERS 1,000 ML IV SCH ×2 (04:46→05:23)
--- NOTE | 2018-06-03 05:57 | P.PN ---
Progress Note - Text Progress Note Date: 06/03/18 67 yo female status post right total knee replacement. Patient received adductor canal catheter. Ropivacaine 0.2% at 8 mls/hr. Patient lying in bed comfortably. VAS score of 2/10, no complains overnight. Assessment and plan: patient will be sent home with the adductor canal pump. Adequate pain control.
[2018-06-03 06:23] LABS: Basophils % (A) 0 %; Eosinophils # (A) 0.1 k/uL (0-0.7); Eosinophils % (A) 1 %; HGB 10.5 gm/dL (11.4-16.0); Lymphocytes # (A) 1.2 k/uL (1.0-4.8); Lymphocytes % (A) 9 %; MCH 28.9 pg (25.0-35.0); Mean Platelet Volume 7.9; Monocytes # (A) 0.8 k/uL (0-1.0); Monocytes % (A) 6 %; Neutrophils # (A) 11.2 k/uL (1.3-7.7); Neutrophils % (A) 83 %; Platelet Count 279 k/uL (150-450); RBC 3.65 m/uL (3.80-5.40); RDW 12.6 % (11.5-15.5); WBC 13.5 k/uL (3.8-10.6)
[2018-06-03 07:20] LABS: Glucose,Whole Blood 202 mg/dL (75-99)
[2018-06-03] MEDS: METHIMAZOLE 5 MG TAB PO SCH (07:23)
[2018-06-03] MEDS: INSULIN ASPART (NovoLOG) 100 UNIT/ML VIAL SQ SCH ×2 (07:24→12:02)
[2018-06-03] MEDS ORDERED: PANTOPRAZOLE 40 MG TABLET PO SCH (07:30)
[2018-06-03 07:34] VITALS: BP 157/74; PULSE 90; RESP 16; TEMP 98.1
[2018-06-03] MEDS: HYDROcodone/APAP 5-325MG 1 EACH TAB PO PRN ×2 (07:44→12:35)
[2018-06-03] MEDS ORDERED: SYMBICORT 160-4.5 MCG INHALER INHALATION SCH (08:00)
[2018-06-03] MEDS ORDERED: METHIMAZOLE 5 MG TAB PO SCH (09:00)
[2018-06-03] MEDS ORDERED: ASPIRIN 81 MG PO SCH (09:00)
[2018-06-03] MEDS ORDERED: RIVAROXABAN 10 MG TAB PO SCH (09:00)
[2018-06-03] MEDS ORDERED: MELOXICAM 7.5 MG TAB PO SCH (09:00)
--- NOTE | 2018-06-03 09:39 | P.DS ---
Providers Date of admission: 06/02/18 10:47 Expected date of discharge: 06/03/18 Attending physician: Woo Nevarez Consults: 06/02/18 15:52 Consult Physician Routine Consulting Provider: Adriano Lopez Consult Reason/Comments: Medical mangement Do you want consulting provider notified?: Yes Primary care physician: Megan Chong - Discharge Diagnosis(es) (1) Primary osteoarthritis of right knee Current Visit: Yes Status: Acute (2) Status post right knee replacement Current Visit: Yes Status: Acute (3) Hypothyroidism Current Visit: No Status: Acute (4) Type 2 diabetes mellitus with hyperglycemia Current Visit: No Status: Acute (5) Unstable angina pectoris Current Visit: No Status: Acute (6) Diabetes mellitus Current Visit: No Status: Chronic (7) Graves disease Current Visit: No Status: Chronic (8) Hyperlipidemia Current Visit: No Status: Chronic (9) Hypertension Current Visit: No Status: Chronic Hospital Course: This is a pleasant 67-year-old female last seen in our office with complaints of right knee pain. Patient has known history of degenerative arthritis of the right knee and presented to discuss options. After discussion and consideration, patient elected to proceed with a total knee arthroplasty of the right knee. The patient was seen preoperatively and medically cleared for surgery by her primary care doctor. The patient was admitted to [facility] and underwent right total knee arthroplasty on 06/02/[address] Nevarez. The procedure was performed without complications or sequelae. The patient has done well postoperatively. The patient was seen and evaluated at bedside today and denies any new complaints. Pain is reasonably controlled. Dressing is clean dry and intact. Incision looks fine with no erythema or active drainage. Calf is soft and nontender. The patient has full foot and ankle motion without difficulty. Patient's right lower extremity is neurovascular intact. Patient is orthopedically stable for discharge to home today. Pertinent Studies: Laboratory Tests 06/03/18 06:04 WBC 13.5 H RBC 3.65 L Hgb 10.5 L Hct 31.0 L Neutrophils # 11.2 H Patient Condition at Discharge: Stable Plan - Discharge Summary Discharge Rx Participant: Yes New Discharge Prescriptions: New Aspirin [Adult Low Dose Aspirin EC] 81 mg PO DAILY #1 tablet. HYDROcodone/APAP 5-325MG [[place] 5-325] 1 - 2 each PO Q4-6H PRN #50 tab PRN Reason: Pain Sennosides-Docusate Sodium [Senokot-S] 1 tab PO BID #60 tablet Rivaroxaban [Xarelto] 10 mg PO DAILY #5 tab No Action Methimazole 5 mg PO BID FLUoxetine HCL 20 mg PO HS amLODIPine BESYLATE/BENAZEPRIL [amLODIPine BESYLATE/BENAZEPRIL 10-20 MG] 1 tab PO HS Atorvastatin [Lipitor] 10 mg PO HS #30 tab glyBURIDE [Diabeta] 2.5 mg PO AC-BID #60 tablet Naproxen Sodium [Aleve] 220 mg PO BID PRN PRN Reason: Pain Ferrous Sulfate [Feosol] 325 mg PO BID Budesonide-Formot 160-4.5 Mcg [Symbicort 160-4.5 Mcg Inhaler] 2 puff INHALATION RT-BID metFORMIN HCL [Glucophage] 500 mg PO BID Aspirin [Adult Low Dose Aspirin EC] 81 mg PO DAILY #[address] tablet[address] Fritz-Docusate Sodium [Senokot-S] 1 tab PO BID #60 tablet Discharge Medication List FLUoxetine HCL 20 mg PO HS 06/01/15 [History] Methimazole 5 mg PO BID 06/01/15 [History] amLODIPine BESYLATE/BENAZEPRIL [amLODIPine BESYLATE/BENAZEPRIL 10-20 MG] 1 tab PO HS 06/01/15 [History] Atorvastatin [Lipitor] 10 mg PO HS #30 tab 06/26/17 [Rx] glyBURIDE [Diabeta] 2.5 mg PO AC-BID #60 tablet 06/26/17 [Rx] Budesonide-Formot 160-4.5 Mcg [Symbicort 160-4.5 Mcg Inhaler] 2 puff INHALATION RT-BID 02/13/18 [History] Ferrous Sulfate [Feosol] 325 mg PO BID 02/13/18 [History] Naproxen Sodium [Aleve] 220 mg PO BID PRN 02/13/18 [History] metFORMIN HCL [Glucophage] 500 mg PO BID 02/13/18 [History] Aspirin [Adult Low Dose Aspirin EC] 81 mg PO DAILY #1 tablet. 02/24/18 [Rx] Sennosides-Docusate Sodium [Senokot-S] 1 tab PO BID #60 tablet 02/24/18 [Rx] Aspirin [Adult Low Dose Aspirin EC] 81 mg PO DAILY #1 tablet. 06/02/18 [Rx] HYDROcodone/APAP 5-325MG [[place] 5-325] 1 - 2 each PO Q4-6H PRN #50 tab 06/02/18 [Rx] Rivaroxaban [Xarelto] 10 mg PO DAILY #5 tab 06/02/18 [Rx] Sennosides-Docusate Sodium [Senokot-S] 1 tab PO BID #60 tablet 06/02/18 [Rx] Follow up Appointment(s)/Referral(s): Agnieszka Rodgers PAC [[employer]] - 2 Weeks Megan Chong MD [Primary Care Provider] - 1 Week Ambulatory/Diagnostic Orders: Continuous Passive Motion (CPM) Machine [DME.AMB1] Time Frame: 3 Weeks, Facility: [facility], Location: Case Management Ambulatory Physical Therapy Order [THER.AMB] Location: None Selected Activity/Diet/Wound Care/Special Instructions: May bear wt as tolerated w walker. May shower if no drainage from incision. CPM 5-6h daily . Discharge Disposition: HOME WITH HOME HEALTH SERVICES
--- NOTE | 2018-06-03 10:50 | P.PN ---
Subjective Progress Note Date: 06/03/18 Patient seen and examined at bedside, reports that her pain is adequately controlled. States that she's been up and ambulatory with a walker walking down the halls to the restroom with physical therapy Objective - Vital Signs Vital signs: Vital Signs Temp 98.1 F 06/03/18 07:00 Pulse 90 06/03/18 07:00 Resp 16 06/03/18 07:00 BP 157/74 06/03/18 07:00 Pulse Ox 97 06/03/18 07:00 Intake & Output 06/02/18 06/03/18 06/03/18 18:59 06:59 18:59 Intake Total 1657 475 240 Output Total 50 Balance 1607 475 240 Intake: IV 1657 Intake, IV Titration 100 Amount Clindamycin 600 mg In 100 Dextrose 5% in Water 50 ml @ 54 mls/hr IVPB Q8H [facility] Rx#:[id number] Oral 375 240 Output: Estimated Blood Loss 50 Other: Voiding Method Toilet # Voids 2 - Exam Constitutional: No acute distress, conversant, pleasant Eyes: Anicteric sclerae, moist conjunctiva, no lid-lag, PERRLA ENMT: NC/AT,Oropharynx clear, no erythema, exudates Neck:Supple, FROM, no masses, or JVD, No carotid bruits; No thyromegaly Lungs: Clear to auscultation, Clear to percussion, Normal respiratory effort, no accessory muscle use Cardiovascular: Heart regular in rate and rhythm, No murmurs, gallops, or rubs no peripheral edema Abdominal: Soft Nontender, nom distended, no guarding, no rebound or rigidity, Normoactive bowel sounds No hepatomegaly, No splenomegaly, No palpable mass No abdominal wall hernia noted Skin: Normal temperature, tone, texture, turgor, No induration No subcutaneous nodules, No rash, lesions, No ulcers Extremities: Dressing is clean dry and intact, incision looks fine with no erythema or active drainage Psychiatric: Alert and oriented to person, place and time, Appropriate affect In tact judgement Neuro: Muscles Strength 5/5 in all 4 extremities, Sensation to light touch grossly present throughout, Cranial nerves II-XII grossly intact. No focal sensory deficits - Labs CBC & Chem 7: 06/03/18 06:04 Labs: Abnormal Lab Results - Last 24 Hours (Table) 06/02/18 06/02/18 06/02/18 Range/Units 11:15 16:43 20:59 WBC (3.8-10.6) k/uL RBC (3.80-5.40) m/uL Hgb (11.4-16.0) gm/dL Hct (34.0-46.0) % Neutrophils # (1.3-7.7) k/uL POC Glucose (mg/dL) 173 H 206 H 392 H (75-99) mg/dL 06/03/18 06/03/18 Range/Units 06:04 07:01 WBC 13.5 H (3.8-10.6) k/uL RBC 3.65 L (3.80-5.40) m/uL Hgb 10.5 L (11.4-16.0) gm/dL Hct 31.0 L (34.0-46.0) % Neutrophils # 11.2 H (1.3-7.7) k/uL POC Glucose (mg/dL) 202 H (75-99) mg/dL Assessment and Plan (1) Type 2 diabetes mellitus with hyperglycemia Narrative/Plan: * Blood sugars elevated receive sliding scale coverage Current Visit: No Status: Acute Code(s): E11.65 - TYPE 2 DIABETES MELLITUS WITH HYPERGLYCEMIA SNOMED Code(s): 920505132335133 (2) Hypertension Narrative/Plan: * Blood pressure stable and controlled on home regimen Current Visit: No Status: Chronic Code(s): I10 - ESSENTIAL (PRIMARY) HYPE RTENSION SNOMED Code(s): 81518557 (3) Hyperlipidemia Narrative/Plan: * Continue statin therapy Current Visit: No Status: Chronic Code(s): E78.5 - HYPERLIPIDEMIA, UNSPECIFIED SNOMED Code(s): 33473136 (4) Status post right knee replacement Narrative/Plan: -As per orthopedic service -Pain control -Bowel regimen -Physical therapy -Advised the patient that she should take a PPI while she is on dual therapy with NSAIDs and aspirin Current Visit: Yes Status: Acute Code(s): Z96.651 - PRESENCE OF RIGHT ARTIFICIAL KNEE JOINT SNOMED Code(s): 7395494972204 Plan: * Disposition patient ready for discharge
[2018-06-03 11:41] LABS: Glucose,Whole Blood 149 mg/dL (75-99)
[2018-06-03] MEDS ORDERED: LISINOPRIL 20 MG TAB PO SCH (21:00)
[2018-06-03] MEDS ORDERED: amLODIPine 10 MG TAB PO SCH (21:00)
[2018-06-03] MEDS ORDERED: ATORVASTATIN 10 MG TAB PO SCH (21:00)
[2018-06-03] MEDS ORDERED: FLUoxetine HCL 20 MG CAP PO SCH (21:00)
== END 2018-06-03 15:14 | disposition home or self-care (01) | DRG 470 ==
LOC: 2ORMAIN 10:47 → 4SSUR 15:52
PROVIDERS: ADMIT Orthopaedic Surgery; ATTEND Orthopaedic Surgery
PROC: 0SRC0J9 Replacement of Right Knee Joint with Synthetic Substitute, Cemented, Open Approach (ICD-10-PCS; principal; 2018-06-02 12:30)
DX: M17.11 Unilateral primary osteoarthritis, right knee (principal); E03.9 Hypothyroidism, unspecified; E05.00 Thyrotoxicosis with diffuse goiter without thyrotoxic crisis or storm; E11.65 Type 2 diabetes mellitus with hyperglycemia; E78.5 Hyperlipidemia, unspecified; H40.9 Unspecified glaucoma; I10 Essential (primary) hypertension; J43.9 Emphysema, unspecified; M21.161 Varus deformity, not elsewhere classified, right knee; Z79.01 Long term (current) use of anticoagulants; Z79.51 Long term (current) use of inhaled steroids; Z79.82 Long term (current) use of aspirin; Z79.84 Long term (current) use of oral hypoglycemic drugs; Z79.899 Other long term (current) drug therapy; Z82.49 Family history of ischemic heart disease and other diseases of the circulatory system; Z87.891 Personal history of nicotine dependence; Z96.653 Presence of artificial knee joint, bilateral; Z79.890 Hormone replacement therapy; Z88.0 Allergy status to penicillin; Z83.3 Family history of diabetes mellitus
CPT/HCPCS: 85025; 88300; 94640

== ENCOUNTER 2020-04-12 07:09 | Day surgery (SDC) | payer BC, MEDICARE ==
[2020-04-07 09:16] VITALS: BMI 36.7
[~2020-04-12 07:09] MED LIST changes: -CLINDAMYCIN 900 MG in DEXTROSE 5% IN WATER 50 ML IVPB ONE; +LACTATED RINGERS 1,000 ML IV SCH; +LIDOCAINE 1% (10MG/ML) FOR IV START INTRADERMA PRN; -ONDANSETRON 4 MG/2 ML VIAL IVP ONE; -TRANEXAMIC ACID 1,000 MG in SODIUM CHLORIDE 0.9% 100 ML IVPB ONE; -fentaNYL (PF) 50 MCG/ML 2 ML AMP IV PRN
[2020-04-12 07:37] VITALS: TEMP 98
[2020-04-12 07:49] LABS: Glucose,Whole Blood 84 mg/dL (75-99)
[2020-04-12] MEDS ORDERED: PROPOFOL 10 MG/ML 20 ML VIAL IV ONE (07:57)
--- NOTE | 2020-04-12 08:05 | P.GSHP ---
History of Present Illness H&P Date: 04/12/20 Chief Complaint: History of colon polyp screening Patient or today for colonoscopy. Last colonoscopy over years ago. Patient has history of polyps. No family history of colon cancer. No bowel complaints. Past Medical History Past Medical History: Diabetes Mellitus, Eye Disorder, GERD/Reflux, Hyperlipidemia, Hypertension, Thyroid Disorder Additional Past Medical History / Comment(s): EMPHYSEMA, GLAUCOMA RT EYE. History of Any Multi-Drug Resistant Organisms: None Reported Past Surgical History: Section, Cholecystectomy, Joint Replacement Additional Past Surgical History / Comment(s): Eye surgery, right shoulder replacement, bilateral knee replacements. Past Anesthesia/Blood Transfusion Reactions: Previous Problems w/ Anesthesia Additional Past Anesthesia/Blood Transfusion Reaction / Comment(s): "Difficulty breathing X1 when coming out of anesthesia." Past Psychological History: Anxiety Additional Psychological History / Comment(s): "Severe anxiety and claustrophobia." Smoking Status: Former smoker Past Alcohol Use History: Rare Additional Past Alcohol Use History / Comment(s): Quit smoking in 2018. Past Drug Use History: Prescription Drug Abuse Additional Drug Use History / Comment(s): "One time problem with prescription drug abuse." - Past Family History Father Family Medical History: Cancer Medications and Allergies Home Medications Medication Instructions Recorded Confirmed Type FLUoxetine HCL 20 mg PO HS 06/01/15 04/12/20 History amLODIPine BESYLATE/BENAZEPRIL 1 tab PO HS 06/01/15 04/12/20 History [amLODIPine BESYLATE/BENAZEPRIL 10-20 MG] methIMAzole [Methimazole] 20 mg PO BID 06/01/15 04/12/20 History Naproxen Sodium [Aleve] 220 mg PO BID PRN 02/13/18 04/12/20 History metFORMIN HCL [Glucophage] 1,000 mg PO 1700 02/13/18 04/12/20 History Atorvastatin [Lipitor] 80 mg PO HS 04/07/20 04/12/20 History Abdulkadir/D3/Mag11/Zinc/Lcac Operator/Stephen/Bor 1 each PO DAILY 04/07/20 04/12/20 History [Caltrate 600+D Plus Tablet] Cyanocobalamin (Vitamin B-12) 3,000 mcg PO DAILY 04/07/20 04/12/20 History [Vitamin B-12] Empagliflozin [Jardiance] 25 mg PO QAM 04/07/20 04/12/20 History Insulin Degludec [Tresiba] 16 units SQ QAM 04/07/20 04/12/20 History Iron. 120 mg PO DAILY 04/07/20 04/12/20 History Allergies Allergy/AdvReac Type Severity Reaction Status Date / Time Penicillins Allergy Anaphylaxis Verified 04/12/20 07:31 Surgical - Exam Vital Signs Temp Pulse Resp BP Pulse Ox 98.0 F 86 16 142/59 96 04/12/20 07:26 04/12/20 07:26 04/12/20 07:26 04/12/20 07:26 04/12/20 07:26 Physical exam: General: Well-developed, well-nourished HEENT: Normocephalic, sclerae nonicteric Abdomen: Nontender, nondistended Extremities: No edema Neuro: Alert and oriented Assessment and Plan (1) Colon cancer screening Narrative/Plan: Will proceed with colonoscopy at this time Current Visit: Yes Status: Acute Code(s): Z12.11 - ENCOUNTER FOR SCREENING FOR MALIGNANT NEOPLASM OF COLON SNOMED Code(s): 210768536
--- NOTE | 2020-04-12 08:20 | P.PCN ---
Date of Procedure: 04/12/20 Procedure(s) Performed: PREOPERATIVE DIAGNOSIS: Colon cancer screening, history of polyps POSTOPERATIVE DIAGNOSIS: Normal exam PROCEDURE: Colonoscopy ANESTHESIA: MAC SURGEON: Noel Graham M.D. SPECIMENS: None ENDOSCOPIC PROCEDURE: The patient was placed on the endoscopy table in the left decubitus position. The Olympus colonoscope was inserted into the anus and passed under direct visualization to the base of the cecum. The appendiceal orifice was visualized. From that point the scope was slowly withdrawn inspecting all surfaces carefully. There were no neoplastic inflammatory or polypoid lesions throughout the cecum, ascending, transverse, descending, sigmoid and rectum. There was no visible diverticulosis noted. The patient's prep was slightly suboptimal with retained liquid stool throughout. I was able to evacuate most of the liquid stool. Digital rectal examination was normal. The patient was taken to the recovery room in stable condition per anesthesia guidelines. RECOMMENDATIONS: Resume diet. Follow-up colonoscopy 5 years.
[2020-04-12 08:25] VITALS: PULSE 70; RESP 18
[2020-04-12 08:42] VITALS: BP 144/65
== END 2020-04-12 09:03 | disposition home or self-care (01) ==
LOC: ORWHC2ENDO 07:09
PROVIDERS: ATTEND Surgery
DX: Z12.11 Encounter for screening for malignant neoplasm of colon (principal); Z86.010 Personal history of colon polyps; K21.9 Gastro-esophageal reflux disease without esophagitis; E11.9 Type 2 diabetes mellitus without complications; E78.2 Mixed hyperlipidemia; I10 Essential (primary) hypertension; Z87.891 Personal history of nicotine dependence; E07.9 Disorder of thyroid, unspecified; E66.9 Obesity, unspecified; Z68.36 Body mass index [BMI] 36.0-36.9, adult; J43.9 Emphysema, unspecified; R00.1 Bradycardia, unspecified; H40.9 Unspecified glaucoma; Z98.891 History of uterine scar from previous surgery; Z96.611 Presence of right artificial shoulder joint; Z96.653 Presence of artificial knee joint, bilateral; F41.9 Anxiety disorder, unspecified; F40.240 Claustrophobia; F19.11 Other psychoactive substance abuse, in remission; Z80.9 Family history of malignant neoplasm, unspecified; Z90.49 Acquired absence of other specified parts of digestive tract; F32.9 Major depressive disorder, single episode, unspecified; M81.0 Age-related osteoporosis without current pathological fracture; Z79.890 Hormone replacement therapy; Z79.1 Long term (current) use of non-steroidal anti-inflammatories (NSAID); Z79.4 Long term (current) use of insulin; Z79.899 Other long term (current) drug therapy; Z88.0 Allergy status to penicillin

== ENCOUNTER 2021-03-21 17:51 | Emergency (ER) | payer MEDICARE ==
[2021-03-21 18:52] VITALS: BP 149/73; RESP 20; TEMP 97.9
[2021-03-21] MEDS ORDERED: IPRATROPIUM-ALBUTEROL 3 ML NEB INHALATION STA (20:15)
[2021-03-21] MEDS ORDERED: DEXAMETHASONE SOD PHOSPHATE 10 MG/ML 1 ML VIAL IM STA (20:15)
--- NOTE | 2021-03-21 20:20 | ED ---
General Adult HPI - General Chief complaint: Upper Respiratory Infection Stated complaint: congestion, SOB Time Seen by Provider: 03/21/21 20:12 Source: patient, family, RN notes reviewed, old records reviewed Mode of arrival: ambulatory Limitations: no limitations - History of Present Illness Initial comments: 70-year-old female presents to the emergency room with a family member complaining of cough and congestion since having Covid in December. Patient is been having increasing cough causing her to vomit. She has not been able to get into her primary care doctor. She does have a history of COPD and still vapes. Also has history of diabetes and hypertension. She denies any fevers or chest pain. Does have headache from the persistent coughing. States that her headache is 7 out of 10 -: month(s) (3) Location: head Severity scale (1-10): 7 Quality: aching Associated Symptoms: cough, malaise, nausea/vomiting (Posttussive vomiting), shortness of breath Treatments Prior to Arrival: other (albuterol, Mucinex) - Related Data Home Medications Medication Instructions Recorded Confirmed FLUoxetine HCL [Sarafem] 20 mg PO HS 06/01/15 04/12/20 amLODIPine BESYLATE/BENAZEPRIL 1 tab PO HS 06/01/15 04/12/20 [amLODIPine BESYLATE/BENAZEPRIL 10-20 MG] methIMAzole [Methimazole] 20 mg PO BID 06/01/15 04/12/20 Naproxen Sodium [Aleve] 220 mg PO BID PRN 02/13/18 04/12/20 metFORMIN HCL [Glucophage] 1,000 mg PO 1700 02/13/18 04/12/20 Atorvastatin [Lipitor] 80 mg PO HS 04/07/20 04/12/20 Abdulkadir/D3/Mag11/Zinc/Staking Engineer/Stephen/Bor 1 each PO DAILY 04/07/20 04/12/20 [Caltrate 600+D Plus Tablet] Cyanocobalamin (Vitamin B-12) 3,000 mcg PO DAILY 04/07/20 04/12/20 [Vitamin B-12] Empagliflozin [Jardiance] 25 mg PO QAM 04/07/20 04/12/20 Insulin Degludec [Tresiba] 16 units SQ QAM 04/07/20 04/12/20 Iron. 120 mg PO DAILY 04/07/20 04/12/20 Previous Rx's Medication Instructions Recorded Albuterol Sulfate [Albuterol 2 puff PO Q6H #8.5 gm 03/21/21 Sulfate Hfa] Benzonatate [Tessalon Perles] 100 mg PO TID 3 Days #6 cap 03/21/21 predniSONE 50 mg PO DAILY #5 tab 03/21/21 Allergies Allergy/AdvReac Type Severity Reaction Status Date / Time Penicillins Allergy Anaphylaxis Verified 03/21/21 18:50 Review of Systems ROS Statement: Those systems with pertinent positive or pertinent negative responses have been documented in the HPI. ROS Other: All systems not noted in ROS Statement are negative. Past Medical History Past Medical History: Diabetes Mellitus, Hyperlipidemia, Hypertension, Thyroid Disorder Additional Past Medical History / Comment(s): EMPHYSEMA, HX GLAUCOMA RT EYE History of Any Multi-Drug Resistant Organisms: None Reported Past Surgical History: Section, Cholecystectomy Additional Past Surgical History / Comment(s): eye surgery 12/04, cholecystectomy Past Anesthesia/Blood Transfusion Reactions: No Reported Reaction Additional Past Anesthesia/Blood Transfusion Reaction / Comment(s): "Difficulty breathing X1 when coming out of anesthesia." Past Psychological History: Anxiety, Depression Smoking Status: Former smoker Past Alcohol Use History: Rare Past Drug Use History: Prescription Drug Abuse - Past Family History Father Family Medical History: Cancer General Exam Limitations: no limitations (hard of hearing) General appearance: alert, in no apparent distress Head exam: Present: atraumatic, normocephalic, normal inspection ENT exam: Present: normal exam, normal oropharynx, mucous membranes moist Respiratory exam: Present: wheezes (Inspiratory and expiratory). Absent: chest wall tenderness, accessory muscle use, decreased breath sounds Cardiovascular Exam: Present: regular rate. Absent: JVD GI/Abdominal exam: Present: soft Neurological exam: Present: alert, oriented X3 Psychiatric exam: Present: normal affect, normal mood Skin exam: Present: warm, dry, intact, normal color. Absent: cyanosis, diaphoretic Course Vital Signs 03/21/21 03/21/21 03/21/21 18:50 20:43 20:53 Temperature 97.9 F Pulse Rate 83 81 85 Respiratory 20 Rate Blood Pressure 149/73 O2 Sat by Pulse 96 Oximetry Medical Decision Making - Medical Decision Making 70-year-old female presents with cough and congestion since having Covid in December. She does have a history of COPD. She denies any fevers or chest pain. Chest x-ray shows no heart failure or infiltrate. Heart and mediastinum are normal. She is coronavirus negative. Patient was given Decadron and albuterol treatment and states is feeling much better. Her cough has resolved. Patient will be treated with prednisone for COPD exacerbation and prescribed an albuterol inhaler. She was also prescribed Tessalon Perles for cough. Directed to follow up with her primary care doctor next week and return to the emergency room if any new or concerning symptoms. She is agreeable to this plan of care. Case discussed with Dr Zhong. - Lab Data Lab Results 03/21/21 Range/Units 18:55 Coronavirus (PCR) Not Detected (Not Detectd) Disposition Clinical Impression: COPD exacerbation Disposition: HOME SELF-CARE Condition: Good Instructions (If sedation given, give patient instructions): COPD (Chronic Ob structive Pulmonary Disease) (ED) Additional Instructions: Start taking prednisone on Saturday03/22/21 as prescribed, albuterol inhaler 2 puffs every 6 hours as needed for cough, and Tessalon Perles as needed for cough. Follow up with your primary care doctor next week. Return to the emergency room with any new or worsening symptoms. Stopped vaping, it is not good for your lungs. Prescriptions: Albuterol Sulfate [Albuterol Sulfate Hfa] 2 puff PO Q6H #8.5 gm predniSONE 50 mg PO DAILY #5 tab Benzonatate [Tessalon Perles] 100 mg PO TID 3 Days #6 cap Is patient prescribed a controlled substance at d/c from ED?: No Referrals: Boris Galvan MD [Primary Care Provider] - 1-2 days Time of Disposition: 21:43
[2021-03-21 20:53] VITALS: PULSE 85
--- NOTE | 2021-03-21 21:03 | XR ---
EXAMINATION TYPE: XR chest 2V DATE OF EXAM: 03/21/2021 COMPARISON: NONE HISTORY: Cough. Pain. TECHNIQUE: 2 views FINDINGS: There is no heart failure nor confluent pneumonic infiltrate. There is right shoulder prost hesis. Costophrenic angles are clear. Heart and mediastinum appear normal. IMPRESSION: No active cardiopulmonary disease. Normal heart. No change.
== END 2021-03-21 22:04 | disposition home or self-care (01) ==
LOC: EC 17:51
DX: J44.1 Chronic obstructive pulmonary disease with (acute) exacerbation (principal); I10 Essential (primary) hypertension; E11.9 Type 2 diabetes mellitus without complications; Z87.891 Personal history of nicotine dependence; Z20.822 Contact with and (suspected) exposure to COVID-19; Z88.0 Allergy status to penicillin
CPT/HCPCS: 94640; 87635; 71046; 99285; 96372; J1100

== ENCOUNTER → 2022-02-15 | Outpatient (CLI) | payer MEDICARE ==
--- NOTE | 2022-02-15 15:52 | US ---
EXAMINATION TYPE: US carotid duplex BILAT DATE OF EXAM: 02/15/2022 COMPARISON: NONE CLINICAL HISTORY: I65.23 CAROTID STENOSIS. Stenosis TECHNIQUE: Carotid duplex ultrasound examination. Indirect Doppler criteria was utilized. FINDINGS: EXAM MEASUREMENTS: RIGHT: Peak Systolic Velocity (PSV) cm/sec ----- Right CCA: 63.4 ----- Right ICA: 79.3 ----- Right ECA: 60.5 ICA/CCA ratio: 1.3 RIGHT: End Diastole cm/sec ----- Right CCA: 15.4 ----- Right ICA: 22.7 ----- Right ECA: 0 LEFT: Peak Systolic Velocity (PSV) cm/sec ----- Left CCA: 73.5 ----- Left ICA: 72.1 ----- Left ECA: 99.7 ICA/CCA ratio: 1.0 LEFT: End Diastole cm/sec ----- Left CCA: 18.3 ----- Left ICA: 22.7 ----- Left ECA: 9.6 VERTEBRALS (direction of flow): Right Vertebral: Antegrade Left Vertebral: Antegrade Rhythm: Normal. REAMING MACHINE OPERATOR NOTES: Atheromatous plaque is identified in the right carotid bulb. No significant stenos is seen IMPRESSION: 1. No significant flow-limiting stenosis based on velocities. Criteria for Assigning % of Stenosis / Diameter reduction (Estimation based on the indirect measurements of the internal carotid artery velocities (ICA PSV). 1. Normal (no stenosis)=ICA PSV < 125 cm/s: ratio < 2.0: ICA EDV<40 cm/s. 2. Less than 50% stenosis=ICA PSV < 125 cm/s: ratio < 2.0: ICA EDV<40 cm/s. 3. 50 to 69% stenosis=ICA PSV of 125 to 230 cm/s: ration 2.0 ? 4.0: ICA EDV 40-100 cm/s. 4. Greater than 70% stenosis to near occlusion= ICA PSV > 230 cm/s: ratio > 4.0: ICA EDV > 100 cm/s. 5. Near occlusion= ICA PSV velocities may be low or undetectable: variable ratio and ICA EDV. 6. Total occlusion=unable to detect flow.
== END | disposition home or self-care (01) ==
LOC: RADUSWWP 15:05
PROVIDERS: ATTEND Internal Medicine
DX: I65.23 Occlusion and stenosis of bilateral carotid arteries (principal)
CPT/HCPCS: 93880

== ENCOUNTER → 2022-05-16 | Outpatient (CLI) | payer MEDICARE ==
--- NOTE | 2022-05-17 09:09 | MM ---
Reason for Exam: Screening (asymptomatic). Last mammogram was performed 2 year(s) and 3 month(s) ago. Patient History: Menarche at age 16. First Full-Term at age 31. Hysterectomy at age 51. Postmenopausal. Risk Values: Sarah 5 year model risk: 1.7%. NCI Lifetime model risk: 5.4%. Prior Study Comparison: 01/28/2020 Bilateral MG 3D screening mammo w/cad, [facility]. Tissue Density: The breast tissue is almost entirely fat. Findings: Analyzed By CAD. There is no suspicious group of microcalcifications or new suspicious mass in either breast. Overall Assessment: Negative, BI-RAD 1 Management: Screening Mammogram of both breasts in 1 year. A clinical breast exam by your physician is recommended on an annual basis and results should be correlated with mammographic findings. [facility] will attempt to contact patient to return for supplemental views and ultrasound if indicated. Electronically signed and approved by: Dawson Henderson DO
== END | disposition home or self-care (01) ==
LOC: RADMAMWWP 08:12
PROVIDERS: ATTEND Internal Medicine
DX: Z12.31 Encounter for screening mammogram for malignant neoplasm of breast (principal); Z78.0 Asymptomatic menopausal state
CPT/HCPCS: 77063; 77067

== ENCOUNTER → 2022-05-21 | Outpatient (CLI) | payer MEDICARE ==
--- NOTE | 2022-05-22 10:49 | BD ---
EXAMINATION TYPE: Axial Bone Density DATE OF EXAM: 05/21/2022 CLINICAL HISTORY: 71 years old Female. ICD-10 CODE: M85.851 OSTEOPENIA Height: 62.5" Weight: 159.6 FRAX RISK QUESTIONS: Alcohol (3 or more units per day): No Family History (Parent hip fracture): No Glucocorticoids (More than 3mos): No (Ex: prednisone, prednisolone, methylprednisolone, dexamethasone, and hydrocortisone). History of Fracture in Adulthood: No Secondary Osteoporosis: 1. Type 1 Diabetes: No 2. Hyperthyroidism: Patient has thyroid removed 3. Menopause before 45: Yes 4. Malnutrition: No 5. Chronic liver disease: No Rheumatoid Arthritis: No Current Tobacco Use: No RISK FACTORS HISTORY OF: Hip Fracture (Right/Left): No Spine Fracture: No History of Wrist Fracture: No Surgery to Spine/Hip(right/left)/Wrist (right/left): No Family History of Osteoporosis: No Active: Yes Diet low in dairy products/other sources of calcium: No Postmenopausal woman: Yes Lost more than 2 inches in height since high school: No Frequent falls: No Poor Health: No Hyperparathyroidism: No Adrenal Insufficiency: No MEDICATIONS: Prednisone or other steroids: No How Long: Thyroid Medications: Yes Which medication: Levothyroxine Thyroid removed about 2 years ago How Lon years on medication Osteoporosis Medications: No Additional Medications: Levothyroxine, metformin, insulin, Jardiance, blood pressure meds, cholestero l meds, vitamins B, C, D, E, Zinc Additional History: Patient states thyroid removed, it was causing her to lose weight EXAM MEASUREMENTS: Bone mineral densitometry was performed using the [employer] System. Bone mineral density as measured about the Lumbar spine is: ----- L1-L4(G/cm2): 1.509 T Score Values are as follows: ----- L1: 0.8 ----- L2: 2.9 ----- L3: 2.8 ----- L4: 4.2 ----- L1-L4: 2.7 Z Score Values are as follows: ----- L1: 2.2 ----- L2: 4.3 ----- L3: 4.2 ----- L4: 5.6 ----- L1-L4: 4.2 Baseline Bone mineral density about the R hip (g/cm2): 0.867 Bone mineral density about the L hip (g/cm2): 0.847 T Score values are as follows: -----R Neck: -2.0 -----L Neck: -2.3 -----R Total: -1.1 -----L Total: -1.3 Z Score values are as follows: -----R Neck: -0.5 -----L Neck: -0.8 -----R Total: 0.1 -----L Total: 0.0 Baseline FRAX%s: The graph provided illustrates a 13.1% chance for a major osteoporotic fx and a 2.9% chance f or the hips probability for fx in 10 years time. IMPRESSION: Osteopenia (T Score between -2.5 and -1). There is slightly increased risk of fracture and the patient may be considered for treatment. Re-Screen 2-5 years. NOTE: T-SCORE=SD OF THE YOUNG ADULT MEAN.
== END | disposition home or self-care (01) ==
LOC: RADBDWWP 16:12
PROVIDERS: ATTEND Internal Medicine
DX: M85.89 Other specified disorders of bone density and structure, multiple sites (principal); Z78.0 Asymptomatic menopausal state
CPT/HCPCS: 77080

== ENCOUNTER 2023-07-10 21:29 | Emergency (ER) | payer MEDICARE ==
[2023-07-10] MEDS: LIDOCAINE 1% INJ 10MG/ML (20 ML MDV) SQ ONE (22:20)
[2023-07-10] MEDS: HYDROmorphone 0.5 MG/0.5 ML SYRINGE IM STA (23:21)
--- NOTE | 2023-07-10 23:23 | ED ---
ENT HPI - General Chief complaint: Dental/Oral Stated complaint: Dental Pain Time Seen by Provider: 07/10/23 22:04 Source: patient Mode of arrival: ambulatory Limitations: no limitations - History of Present Illness Initial comments: 72-year-old female presenting with chief complaint of dental pain. Patient is having left lower sided dental pain over a known fractured tooth. No obvious swelling. Patient does follow with a oral surgeon. No difficulty breathing or swallowing. No drooling or trismus. No fevers. No neck pain. - Related Data Home Medications Medication Instructions Recorded Confirmed FLUoxetine HCL [Sarafem] 20 mg PO HS 06/01/15 04/12/20 amLODIPine BESYLATE/BENAZEPRIL 1 tab PO HS 06/01/15 04/12/20 [amLODIPine BESYLATE/BENAZEPRIL 10-20 MG] methIMAzole [Methimazole] 20 mg PO BID 06/01/15 04/12/20 Naproxen Sodium [Aleve] 220 mg PO BID PRN 02/13/18 04/12/20 metFORMIN HCL [Glucophage] 1,000 mg PO 1700 02/13/18 04/12/20 Atorvastatin [Lipitor] 80 mg PO HS 04/07/20 04/12/20 Abdulkadir/D3/Mag11/Zinc/Family Literacy Coordinator/Stephen/Bor 1 each PO DAILY 04/07/20 04/12/20 [Caltrate 600+D Plus Tablet] Cyanocobalamin (Vitamin B-12) 3,000 mcg PO DAILY 04/07/20 04/12/20 [Vitamin B-12] Empagliflozin [Jardiance] 25 mg PO QAM 04/07/20 04/12/20 Insulin Degludec [Tresiba] 16 units SQ QAM 04/07/20 04/12/20 Iron. 120 mg PO DAILY 04/07/20 04/12/20 Previous Rx's Medication Instructions Recorded Albuterol Sulfate [Albuterol 2 puff PO Q6H #8.5 gm 03/21/21 Sulfate Hfa] Benzonatate [Tessalon Perles] 100 mg PO TID 3 Days #6 cap 03/21/21 predniSONE 50 mg PO DAILY #5 tab 03/21/21 Clindamycin [Cleocin] 450 mg PO TID 7 Days #64 cap 07/11/23 HYDROcodone/APAP 7.5-325MG [Romulus 1 tab PO Q6HR PRN 3 Days #12 tab 07/11/23 7.5-325] Allergies Allergy/AdvReac Type Severity Reaction Status Date / Time Penicillins Allergy Anaphylaxis Verified 07/10/23 21:59 Review of Systems ROS Statement: Those systems with pertinent positive or pertinent negative responses have been documented in the HPI. ROS Other: All systems not noted in ROS Statement are negative. Past Medical History Past Medical History: Diabetes Mellitus, Hyperlipidemia, Hypertension, Thyroid Disorder Additional Past Medical History / Comment(s): EMPHYSEMA, HX GLAUCOMA RT EYE History of Any Multi-Drug Resistant Organisms: None Reported Past Surgical History: Section, Cholecystectomy Additional Past Surgical History / Comment(s): eye surgery 12/04, cholecystectomy, ortho procedure for trigger finger Past Anesthesia/Blood Transfusion Reactions: No Reported Reaction Additional Past Anesthesia/Blood Transfusion Reaction / Comment(s): "Difficulty breathing X1 when coming out of anesthesia." Past Psychological History: Anxiety, Depression Smoking Status: Former smoker Past Alcohol Use History: Rare Past Drug Use History: Prescription Drug Abuse - Past Family History Father Family Medical History: Cancer General Exam Limitations: no limitations General appearance: alert, in no apparent distress Head exam: Present: atraumatic, normocephalic Eye exam: Present: normal appearance, EOMI Expanded Mouth exam: Present: normal external inspection Teeth exam: Present: dental caries, fractured tooth #, dental tenderness # Throat exam: normal inspection Neck exam: Present: normal inspection Respiratory exam: Absent: respiratory distress Neurological exam: Present: alert, oriented X3 Psychiatric exam: Present: normal affect, normal mood Skin exam: Present: warm, dry Course Vital Signs 07/10/23 07/11/23 21:59 00:23 Temperature 98.5 F 98.1 F Pulse Rate 90 80 Respiratory 22 18 Rate Blood Pressure 160/87 161/89 O2 Sat by Pulse 97 96 Oximetry Procedures - Nerve Block Consent Obtained: verbal consent Local Anesthetic Used: Other (bubivacaine) Side: left Nerve Blocks: other (dental) Procedure Successful: Yes Complications: none Patient Tolerated Procedure: well Medical Decision Making - Medical Decision Making Was pt. sent in by a medical professional or institution (, PA, BUSINESS APPLICATIONS MANAGER, urgent care, hospital, or [place] [facility] [place] facility...) When possible be specific @ -No Did you speak to anyone other than the patient for history (EMS, parent, family, police, friend...)? What history was obtained from this source @ -No Did you review nursing and triage notes (agree or disagree)? Why? @ -I reviewed and agree with nursing and triage notes Were old charts reviewed (outside hosp., previous admission, EMS record, old EKG, old radiological studies, urgent care reports/EKG's, [place] [facility] [place] records)? Report findings @ -No old charts were reviewed Differential Diagnosis (chest pain, altered mental status, abdominal pain women, abdominal pain men, vaginal bleeding, weakness, fever, dyspnea, syncope, headache, dizziness, GI bleed, back pain, seizure, CVA, palpatations, mental health, musculoskeletal)? @ -Differential includes toothache, dental abscess, Rober's angina, this is not an all-inclusive list EKG interpreted by me (3pts min.). @ -As above X-rays interpreted by me (1pt min.). @ -None done CT interpreted by me (1pt min.). @ -None done U/S interpreted by me (1pt. min.). @ -None done What testing was considered but not performed or refused? (CT, X-rays, U/S, labs)? Why? @ -None What meds were considered but not given or refused? Why? @ -None Did you discuss the management of the patient with other professionals (professionals i.e. , PA, BUSINESS APPLICATIONS MANAGER, lab, RT, psych nurse, social insurance adviser, pit clerk, teacher, svp chief marketing officer, field nurse case manager)? Give summary @ -No Was smoking cessation discussed for >3mins.? @ -No Was critical care preformed (if so, how long)? @ -No Were there social determinants of health that impacted care today? How? (Homelessness, low income, unemployed, alcoholism, drug addiction, transportation, low edu. Level, literacy, decrease access to med. care, [place] [facility], rehab)? @ -No Was there de-escalation of care discussed even if they declined (Discuss DNR or withdrawal of care, Hospice)? DNR status @ -No What co-morbidities impacted this encounter? (DM, HTN, Smoking, COPD, CAD, Cancer, CVA, ARF, Chemo, Hep., AIDS, mental health diagnosis, sleep apnea, morbid obesity)? @ -None Was patient admitted / discharged? Hospital course, mention meds given and route, prescriptions, significant lab abnormalities, going to OR and other pertinent info. @ -72-year-old female presenting with chief complaint of dental pain. No red flag symptoms. Dental block is performed with the assistance of Dr. De La Rosa. Patient reports improvement. Provided with antibiotics. She will follow-up with her oral surgeon. Discharged home. Follow-up with PCP. Report back to ER with any new or worsening symptoms. Discussed return parameters and answered all questions. Patient conveyed verbal understanding and agreed to the plan. I discussed this case in detail with my attending Dr. De La Rosa Undiagnosed new problem with uncertain prognosis? @ -No Drug Therapy requiring intensive monitoring for toxicity (Heparin, Nitro, Insulin, Cardizem)? @ -No Were any procedures done? @ -Dental block Diagnosis/symptom? @ -Tooth ache Acute, or Chronic, or Acute on Chronic? @ -Acute Uncomplicated (without systemic symptoms) or Complicated (systemic symptoms)? @ -Uncomplicated Side effects of treatment? @ -No Exacerbation, Progression, or Severe Exacerbation? @ -No Poses a threat to life or bodily function? How? (Chest pain, [place], [place], pneumonia, PE, COPD, DKA, ARF, appy, cholecystitis, CVA, Diverticulitis, Homicidal, Suicidal, threat to staff... and all critical care pts) @ -No Disposition Clinical Impression: Toothache Disposition: HOME SELF-CARE Condition: Good Instructions (If sedation given, give patient instructions): Toothache (ED) Additional Instructions: Follow-up with your oral surgeon. Report back to ER with any new or worsening symptoms. Prescriptions: Clindamycin [Cleocin] 450 mg PO TID 7 Days #64 cap HYDROcodone/APAP 7.5-325MG [Romulus 7.5-325] 1 tab PO Q6HR PRN 3 Days #12 tab PRN Reason: Pain Is patient prescribed a controlled substance at d/c from ED?: No Referrals: Boris Galvan MD [Primary Care Provider] - 1-2 days Time of Disposition: 00:10
[2023-07-11 00:33] VITALS: BP 161/89; PULSE 80; RESP 18; TEMP 98.1
== END 2023-07-11 00:29 | disposition home or self-care (01) ==
LOC: EC 21:29
DX: S29.011A Strain of muscle and tendon of front wall of thorax, initial encounter (principal); X50.1XXA Overexertion from prolonged static or awkward postures, initial encounter
CPT/HCPCS: 99283; 96372 ×2; J2001; J1170

== ENCOUNTER → 2023-10-28 | Outpatient (CLI) | payer MEDICARE ==
--- NOTE | 2023-10-28 15:06 | XR ---
EXAMINATION TYPE: XR chest 2V DATE OF EXAM: 10/28/2023 COMPARISON: NONE HISTORY: Shortness of breath TECHNIQUE: Frontal and lateral views of the chest are obtained. FINDINGS: Scattered senescent parenchymal changes noted. Hyperinflation compatible with COPD. No evidence for infiltrate. No evidence for atelectasis. Heart size is stable. Mediastinal structures are stable and grossly unremarkable. No evidence for hilar prominence. Degenerative changes dorsal spine. IMPRESSION: 1. No evidence for acute pulmonary disease.
== END | disposition home or self-care (01) ==
LOC: RADXRMAIN 14:42
PROVIDERS: ATTEND Registered Nurse
DX: R05.3 Chronic cough (principal)
CPT/HCPCS: 71046

== ENCOUNTER → 2023-11-13 | Outpatient (CLI) | payer MEDICARE ==
--- NOTE | 2023-11-13 14:55 | CT ---
EXAMINATION TYPE: CT brain wo con CT DLP: 1263 mGycm, Automated exposure control for dose reduction was used. DATE OF EXAM: 11/13/2023 2:37 PM COMPARISON: CT orbits 11/04/2015 CLINICAL INDICATION:Female, 73 years old with history of R42 DIZZINESS, Dizziness, frequent falls wit h head injury TECHNIQUE: Brain: Multiple axial CT images of the brain were obtained without IV contrast. . Coronal and sagitta l reformats reviewed. FINDINGS: Brain: Extra-axial spaces: No abnormal extra-axial fluid collections. Ventricular system: Within normal limits Cerebral parenchyma: No acute intraparenchymal hemorrhage or mass effect. The barba-white junction is well differentiated. Scattered hypoattenuating areas are seen within the periventricular white matte r. Cerebellum: Unremarkable. Mass effect: No evidence of midline shift. Intracranial vasculature: Atherosclerotic calcifications of the intracranial vessels. Soft tissues: Normal. Calvarium/osseous structures: No depressed skull fracture. Paranasal sinuses and mastoid air cells: Mastoid air cells are aerated. The left mastoid air cells ar e hypoplastic. Minimal mucosal thickening of the bilateral maxillary sinuses. Moderate mucosal thicke walt of the bilateral ethmoid sinuses. Minimal mucosal thickening of the bilateral sphenoid sinuses. Aplasia of the right frontal sinus with moderate mucosal thickening of the hypoplastic left frontal s inus. Visualized orbits: Orbital contents are intact. IMPRESSION: 1. No acute intracranial process. 2. Nonspecific white matter changes, likely secondary to chronic small vessel ischemic disease. 3. Paranasal sinus disease. [facility], , 11/13/2023 2:53 PM
--- NOTE | 2023-11-13 17:54 | US ---
EXAMINATION TYPE: US carotid duplex BILAT DATE OF EXAM: 11/13/2023 COMPARISON: Us 02/15/2022 CLINICAL INDICATION: Female, 73 years old with history of I65.23 CAROTID STENOSIS; Prior smoker, hype rtension, hyperlipidemia, diabetes. Patient has had some falls. TECHNIQUE: Carotid duplex ultrasound examination. Indirect Doppler criteria was utilized. FINDINGS: EXAM MEASUREMENTS: RIGHT: Peak Systolic Velocity (PSV) cm/sec ----- Right CCA: 66.0 ----- Right ICA: 68.8 ----- Right ECA: 74.6 ICA/CCA ratio: 1.0 RIGHT: End Diastole cm/sec ----- Right CCA: 15.4 ----- Right ICA: 16.5 ----- Right ECA: 0.0 LEFT: Peak Systolic Velocity (PSV) cm/sec ----- Left CCA: 79.8 ----- Left ICA: 77.6 ----- Left ECA: 93.0 ICA/CCA ratio: 1.0 LEFT: End Diastole cm/sec ----- Left CCA: 18.2 ----- Left ICA: 17.1 ----- Left ECA: 9.5 VERTEBRALS (direction of flow): Right Vertebral: Antegrade Left Vertebral: Antegrade Rhythm: Normal HOGSHEAD DUMPER NOTES: *Plaque seen within bilateral bulbs and prox right ICA. No elevated velocities. IMPRESSION: No evidence for hemodynamically significant stenosis. Criteria for Assigning % of Stenosis / Diameter reduction (Estimation based on the indirect measurements of the internal carotid artery velocities (ICA PSV). 1. Normal (no stenosis)=ICA PSV < 125 cm/s: ratio < 2.0: ICA EDV<40 cm/s. 2. Less than 50% stenosis=ICA PSV < 125 cm/s: ratio < 2.0: ICA EDV<40 cm/s. 3. 50 to 69% stenosis=ICA PSV of 125 to 230 cm/s: ration 2.0 ? 4.0: ICA EDV 40-100 cm/s. 4. Greater than 70% stenosis to near occlusion= ICA PSV > 230 cm/s: ratio > 4.0: ICA EDV > 100 cm/s. 5. Near occlusion= ICA PSV velocities may be low or undetectable: variable ratio and ICA EDV. 6. Total occlusion=unable to detect flow. [facility], , 11/13/2023 5:52 PM
--- NOTE | 2023-11-14 20:08 | CA ---
Transthoracic Echo Report Name: Soco Pruett Age: 73 Gender: F : 1950 Exam Date: 11/13/2023 13:56 Exam Location: [place] [facility] Ht (in): 62 Wt (lb): 184 Ordering Physician: Boris Galvan MD Attending/Referring Phys: Emerita Estevez [facility] Shopper'S Aide Jenna Castro RDCS Procedure CPT: Indications: I25.10 Cardiac Hx: Technical Quality: Fair Contrast 1: Total Dose (mL): Contrast 2: Total Dose (mL): MEASUREMENTS (Male / Female) Normal Values 2D ECHO LV Diastolic Diameter PLAX 4.3 cm 4.2 - 5.9 / 3.9 - 5.3 cm LV Systolic Diameter PLAX 2.6 cm IVS Diastolic Thickness 1.3 cm 0.6 - 1.0 / 0.6 - 0.9 cm LVPW Diastolic Thickness 1.2 cm 0.6 - 1.0 / 0.6 - 0.9 cm LV Relative Wall Thickness 0.6 RV Internal Dim ED PLAX 2.1 cm LVOT Diameter 2.1 cm LA Systolic Diameter LX 4.2 cm 3.0 - 4.0 / 2.7 - 3.8 cm LV Diastolic Volume MOD BP 55.3 cm??? 67 - 155 / 56 - 104 cm??? LV Systolic Volume MOD BP 22.0 cm??? - / 19 - 49 cm??? LV Ejection Fraction MOD BP 60.2 % >= 55 % LV Cardiac Index MOD BP 1179.0 cm???/min???m??? LV Diastolic Volume MOD 4C 56.6 cm??? LV Systolic Volume MOD 4C 18.7 cm??? LV Ejection Fraction MOD 4C 66.9 % LV Cardiac Index MOD 4C 1342.9 cm???/min???m??? LV Diastolic Length 4C 6.4 cm LV Systolic Length 4C 5.0 cm LV Diastolic Volume MOD 2C 49.5 cm??? LV Systolic Volume MOD 2C 24.5 cm??? LV Ejection Fraction MOD 2C 50.5 % LV Cardiac Index MOD 2C 886.1 cm???/min???m??? LV Diastolic Length 2C 7.0 cm LV Systolic Length 2C 5.4 cm LA Volume 67.7 cm??? 18 - 58 / 22 - 52 cm??? LA Volume Index 34.8 cm???/m??? 16 - 28 cm???/m??? M-MODE Aortic Root Diameter MM 2.9 cm LA Systolic Diameter MM 4.0 cm LA Ao Ratio MM 1.4 AV Cusp Separation MM 1.9 cm DOPPLER LVOT Peak Velocity 91.7 cm/s LVOT Peak Gradient 3.4 mmHg LVOT Velocity Time Integral 23.1 cm LVOT Stroke Volume 81.0 cm??? LVOT Stroke Volume Index 43.9 ml/m??? LVOT Cardiac Index 2872.5 cm???/min???m??? MV Peak Velocity 105.3 cm/s MV Peak Gradient 4.4 mmHg MV Mean Velocity 61.3 cm/s MV Mean Gradient 1.7 mmHg MV Velocity Time Integral 31.9 cm MV Area PHT 3.0 cm??? Mitral E Point Velocity 85.4 cm/s Mitral A Point Velocity 98.0 cm/s Mitral E to A Ratio 0.9 MV Deceleration Time 249.8 ms TR Peak Velocity 228.7 cm/s TR Peak Gradient 20.9 mmHg Right Ventricular Systolic Press 25.2 mmHg FINDINGS Left Ventricle Left ventricular ejection fraction is estimated at 60-65%. Mildly increased septal wall thickness. Mildly increased posterior wall thickness. Normal left ventricular systolic function with no obvious regional wall motion abnormalities. Right Ventricle Normal right ventricular size and function. Right ventricular systolic pressure within normal limits. Right Atrium Normal right atrial size. Left Atrium Moderately increased left atrial volume. Mitral Valve Structurally normal mitral valve. Mild mitral regurgitation. No mitral stenosis. Aortic Valve Trileaflet aortic valve. No aortic valve stenosis or regurgitation. Tricuspid Valve Structurally normal tricuspid valve. Mild tricuspid regurgitation. Pulmonic Valve Structurally normal pulmonic valve. No pulmonic stenosis. Trace pulmonic regurgitation. Pericardium No pericardial or pleural effusion. Aorta Normal size aortic root and proximal ascending aorta. CONCLUSIONS Diagnosis I25.10 LVH with preserved systolic function Left atrial enlargement Previewed by: Dr. Keo Santos MD (Electronically Signed) Final Date: 14 November 2023 20:07
--- NOTE | 2023-11-18 08:34 | MM ---
Reason for Exam: Screening (asymptomatic). Last mammogram was performed 1 year(s) and 6 month(s) ago. Patient History: Menarche at age 16. First Full-Term at age 31. Hysterectomy at age 51. Postmenopausal. Risk Values: Sarah 5 year model risk: 1.8%. NCI Lifetime model risk: 4.9%. Prior Study Comparison: Bilateral MG 3D screening mammo w/cad, [facility]. 01/28/2020 Bilateral MG 3D screening mammo w/cad, [facility]. 05/16/2022 Bilateral MG 3D screening mammo w/cad, [facility]. Tissue Density: The breasts are almost entirely fatty. Findings: Analyzed By CAD. There is no suspicious group of microcalcifications or new suspicious mass in either breast. Overall Assessment: Negative, BI-RAD 1 Management: Screening Mammogram of both breasts in 1 year. . Patient should continue monthly self-breast exams. A clinical breast exam by your physician is recommended on an annual basis. This exam should not preclude additional follow-up of suspicious palpable abnormalities. Note on Sarah scores and lifetime risk: 1. A Sarah score greater than 3% is considered moderate risk. If this is the case, consider specialist referral to assess eligibility for a risk reducing agent. 2. If overall lifetime risk for the development of breast cancer is 20% or higher, the patient may qualify for future screening with alternating mammogram and breast MRI. [facility], , 11/18/2023 8:31 AM. Electronically signed and approved by: Mango Tellez M.D. Radiologis
== END | disposition home or self-care (01) ==
LOC: RADMAMWWP 12:51
PROVIDERS: ATTEND Internal Medicine
DX: Z12.31 Encounter for screening mammogram for malignant neoplasm of breast (principal); I65.23 Occlusion and stenosis of bilateral carotid arteries; I25.10 Atherosclerotic heart disease of native coronary artery without angina pectoris; I11.9 Hypertensive heart disease without heart failure; J34.89 Other specified disorders of nose and nasal sinuses; E11.9 Type 2 diabetes mellitus without complications; E78.5 Hyperlipidemia, unspecified; R42 Dizziness and giddiness; R92.313 Mammographic fatty tissue density, bilateral breasts; Z78.0 Asymptomatic menopausal state; Z87.891 Personal history of nicotine dependence
CPT/HCPCS: 70450; 77063; 77067; 93306; 93880

== ENCOUNTER → 2024-03-13 | Outpatient (CLI) | payer MEDICARE ==
--- NOTE | 2024-03-13 13:39 | CT ---
EXAMINATION TYPE: CT iac wo con CT DLP: 142.7 mGycm, Automated exposure control for dose reduction was used. DATE OF EXAM: 03/13/2024 1:28 PM INDICATION: Patient age:Female; 73 years old; Reason for study: H93.1 tinnitus R ear; PHH. COMPARISON: CT brain 11/13/2023. TECHNIQUE: Multiple thin axial images were obtained through the temporal bones and internal auditory canals. Additional coronal reformatted images were obtained. No IV contrast was utilized. FINDINGS: Right Temporal Bone: External Ear: The external auditory canal is unremarkable, The tympanic membrane is present and unrem arkable. Middle Ear: The ossicles demonstrate a normal appearance. Prussak's space is clear and the scutum i s intact. There is no evidence of osseous erosion and the tegmen tympani is intact. Inner Ear: Cochlea, vestibule and semi circular canals are unremarkable. No evidence of carotid gerald l dehiscence. Two and a half turns of the cochlea are identified. The vestibular aqueduct is not enl arged. Mastoid Air Cells: The mastoid air cells are completely opacified. The tegmen mastoideum is intact. T he aditus ad antrum is clear. Internal Auditory Canal: The internal auditory canal is unremarkable. Left Temporal Bone: External Ear: The external auditory canal is unremarkable, The tympanic membrane is present and unrem arkable. Middle Ear: The ossicles demonstrate a normal appearance. Prussak's space is clear and the scutum i s intact. There is no evidence of osseous erosion and the tegmen tympani is intact. Inner Ear: Cochlea, vestibule and semi circular canals are unremarkable. No evidence of carotid gerald l dehiscence. Two and a half turns of the cochlea are identified. The vestibular aqueduct is not enl arged. Mastoid Air Cells: The mastoid air cells are clear. Hypoplasia of the mastoid air cells. The tegmen m astoideum is intact. The aditus ad antrum is clear. Internal Auditory Canal: The internal auditory canal is unremarkable. Mild mucosal thickening of bilateral maxillary sinuses with air-fluid levels. Mild mucosal thickening of the bilateral sphenoid sinuses. Moderate mucosal thickening of the ethmoid sinuses. IMPRESSION: 1. Nonspecific right mastoid effusion. Correlate clinically for mastoiditis. 2. Paranasal sinus disease with air fluid levels within the bilateral maxillary sinuses. Correlate f or acute sinusitis. [facility], , 03/13/2024 1:37 PM
== END | disposition home or self-care (01) ==
LOC: RADCTMAIN 13:11
PROVIDERS: ATTEND Internal Medicine
DX: J34.89 Other specified disorders of nose and nasal sinuses (principal); H93.11 Tinnitus, right ear
CPT/HCPCS: 70480